=== PATIENT | female | born 1945 | race Caucasian/White ===

== ENCOUNTER 2019-11-24 12:35 | Inpatient (IN) | payer MEDICARE ==
[~2019-11-24] VITALS: Ht 162.5 cm; Wt 54.5 kg
--- NOTE | 2019-11-24 12:50 | NUR ---
CALLED AND GAVE UPDATE TO SON JADEN.
--- NOTE | 2019-11-24 12:54 | NUR ---
UP TO BSC UNABLE TO BEAR WT ON R LEG DUE TO PAIN WHEN MOVING
--- NOTE | 2019-11-24 13:32 | Diagnostic Imaging Report ---
INDICATION: Fall. TIME OF EXAM: 1:32 PM. COMPARISON: 09/02/2011. FINDINGS: The heart size is stable. There are zones of linear density in both bases, consistent with some atelectasis or scarring. No infiltrates are detected. No effusion or pneumothorax is seen. IMPRESSION: Bibasilar subsegmental atelectasis or scarring. No other significant abnormality is detected. Dictated by: Dictated on workstation # [id number]
--- NOTE | 2019-11-24 13:32 | Diagnostic Imaging Report ---
PROCEDURE: CT head and CT cervical spine without contrast. TECHNIQUE: Multiple contiguous axial images were obtained through the brain and cervical spine without the use of intravenous contrast. Sagittal and coronal reformations through the cervical spine were then performed. Auto Exposure Controls were utilized during the CT exam to meet ALARA standards for radiation dose reduction. INDICATION: Multiple falls, confusion and headaches. Comparison is made with prior head CT from 09/03/2011. CT HEAD: Ventricular size is normal for the patient's age. 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 Periventricular hypodensities noted consistent with chronic microvascular ischemia. No sulcal effacement or midline shift is detected. No acute intra-axial or extra-axial hemorrhage is detected. Cisterns are patent. Visualized paranasal sinuses are clear. IMPRESSION: Chronic changes. No acute intracranial process is detected. CT CERVICAL SPINE: There is a reversal of the normal cervical lordotic curvature. Minimal anterolisthesis of C4 on C5 is noted with minimal retrolisthesis of C5 on C6 and C6 on C7. There is significant degenerative disc disease C4-C5, C5-C6 and C6-C7 levels with disc space narrowing and marginal osteophyte formation. Prevertebral tissues are within normal limits. No fractures are identified. The odontoid is intact. IMPRESSION: Reversal of the normal cervical curvature and multilevel spondylosis. No acute bony abnormality is detected. Dictated by: Dictated on workstation # [id number]
--- NOTE | 2019-11-24 13:35 | Diagnostic Imaging Report ---
INDICATION: Fall. TIME OF EXAM: 1:32 PM. TECHNIQUE: An AP view of the pelvis and two views of the right hip were obtained. FINDINGS: The femoroacetabular alignment is normal bilaterally. There is superior joint space narrowing bilaterally, consistent with degenerative change. The femoral heads and necks are intact. There is some questionable cortical interruption involving the inferior pubic ramus on the right. A nondisplaced fracture cannot be entirely excluded. There are extensive vascular calcifications within the iliac arteries bilaterally. IMPRESSION: Chronic changes. There is a questionable nondisplaced fracture of the right inferior pubic ramus. No hip fracture is detected. Dictated by: Dictated on workstation # [id number]
--- NOTE | 2019-11-24 13:43 | ED Fall/Injury ---
General Chief Complaint: Trauma-Non Activation Stated Complaint: R HIP PAIN;FALL Nursing Triage Note: TO ED PER EMS FROM HOME SON WENT TO CHECK ON HER FOUND HER ON THE FLOOR AROUNG 11A . UNABLE TO GET UP C/O R HIP PAIN WHEN TRYING TO GET UP. PMH OF STROKE THAT DID AFFECT R LEG. Source: patient Exam Limitations: no limitations History of Present Illness Date Seen by Provider: Nov 24, 2019 Time Seen by Provider: 13:42 Initial Comments To ER by EMS from home with reports of a fall and subsequent right hip pain. She was reportedly unable to get up or ambulate at home. She lives at home by herself. Son would by her house to check on her at about 11 AM as he does every day and found her on the floor.SHe takes tramadol at home for pain control. She follows with Dr. Vincent. Occurred: just prior to arrival Severity: mild Context: unknown Loss of Consciousness: unsure Allergies and Home Medications Allergies Coded Allergies: Penicillins (Verified Allergy, Unknown, 11/24/19) PATIENT STATES NKDA SON THINKS SHE MAY BE ALLERGIC TO PENICILLINS. Patient Home Medication List Home Medication List Reviewed: Yes Review of Systems Review of Systems Constitutional: see HPI Eyes: No Symptoms Reported Ears, Nose, Mouth, Throat: no symptoms reported Respiratory: no symptoms reported Cardiovascular: no symptoms reported Genitourinary: no symptoms reported Musculoskeletal: no symptoms reported Skin: no symptoms reported Psychiatric/Neurological: No Symptoms Reported Past [id number]-[id number]-Vyvutd Hx Patient Social History Alcohol Use: Denies Use Recreational Drug Use: No Smoking Status: Never a Smoker Recent Foreign Travel: No Contact w/Someone Who Travel: No Recent Infectious Disease Expo: No Past Medical History Surgeries: No Respiratory: No Cardiac: Yes High Cholesterol Neurological: No Stroke Genitourinary: No Gastrointestinal: No Musculoskeletal: Yes (CHRONIC PAIN) Endocrine: No HEENT: No Cancer: No Psychosocial: No Integumentary: No Physical Exam Vital Signs Vital Signs - First Documented 11/24/19 12:35 Temp 36.8 Pulse 97 Resp 18 B/P (MAP) 145/89 (107) Pulse Ox 98 O2 Delivery Room Air Capillary Refill : Less Than 3 Seconds Height, Weight, BMI Height: '" Weight: lbs. oz. kg; 20.00 BMI Method: General Appearance: WD/WN, no apparent distress Neck: non-tender, full range of motion Respiratory: no respiratory distress, no accessory muscle use Gastrointestinal: normal bowel sounds, soft Extremities: normal range of motion, non-tender Neurologic/Psychiatric: alert, normal mood/affect, oriented x 3 Skin: normal color, warm/dry Renetta Coma Score Best Eye Response: (4) Open Spontaneously Best Verbal Response: (5) Oriented Best Motor Response: (6) Obeys Commands Renetta Total: 15 Progress/Results/Core Measures Results/Orders Lab Results Laboratory Tests Test 11/24/19 13:52 11/24/19 14:06 Range/Units White Blood Count 15.8 H 4.3-11.0 10^3/uL Red Blood Count 4.87 4.35-5.85 10^6/uL Hemoglobin 14.4 11.5-16.0 G/DL Hematocrit 42 35-52 % Mean Corpuscular Volume 86 80-99 FL Mean Corpuscular Hemoglobin 30 25-34 PG Mean Corpuscular Hemoglobin Concent 34 32-36 G/DL Red Cell Distribution Width 13.9 10.0-14.5 % Platelet Count 278 130-400 10^3/uL Mean Platelet Volume 9.5 7.4-10.4 FL Neutrophils (%) (Auto) 85 H 42-75 % Lymphocytes (%) (Auto) 9 L 12-44 % Monocytes (%) (Auto) 7 0-12 % Eosinophils (%) (Auto) 0 0-10 % Basophils (%) (Auto) 0 0-10 % Neutrophils # (Auto) 13.3 H 1.8-7.8 X 10^3 Lymphocytes # (Auto) 1.4 1.0-4.0 X 10^3 Monocytes # (Auto) 1.1 H 0.0-1.0 X 10^3 Eosinophils # (Auto) 0.0 0.0-0.3 10^3/uL Basophils # (Auto) 0.0 0.0-0.1 10^3/uL Neutrophils % (Manual) 79 % Lymphocytes % (Manual) 12 % Monocytes % (Manual) 4 % Eosinophils % (Manual) 0 % Basophils % (Manual) 0 % Band Neutrophils 5 % Blood Morphology Comment NORMAL Sodium Level 134 L 135-145 MMOL/L Potassium Level 4.6 3.6-5.0 MMOL/L Chloride Level 102 98-107 MMOL/L Carbon Dioxide Level 20 L 21-32 MMOL/L Anion Gap 12 5-14 MMOL/L Blood Urea Nitrogen 9 7-18 MG/DL Creatinine 0.70 0.60-1.30 MG/DL Estimat Glomerular Filtration Rate > 60 BUN/Creatinine Ratio 13 Glucose Level 108 H 70-105 MG/DL Calcium Level 8.8 8.5-10.1 MG/DL Urine Color YELLOW Urine Clarity CLEAR Urine pH 7.0 5-9 Urine Specific [place] 1.015 L 1.016-1.022 Urine Protein NEGATIVE NEGATIVE Urine Glucose (UA) NEGATIVE NEGATIVE Urine Ketones NEGATIVE NEGATIVE Urine Nitrite NEGATIVE NEGATIVE Urine Bilirubin NEGATIVE NEGATIVE Urine Urobilinogen 0.2 < = 1.0 MG/DL Urine Leukocyte Esterase NEGATIVE NEGATIVE Urine RBC (Auto) TRACE-L NEGATIVE Urine RBC 2-5 H /HPF Urine WBC NONE /HPF Urine Squamous Epithelial Cells 0-2 /HPF Urine Crystals NONE /LPF Urine Bacteria TRACE /HPF Urine Casts NONE /LPF Urine Mucus NEGATIVE /LPF Urine Culture Indicated NO My Orders Orders - MAMI MYRICK APRN Ct Head/Cervical Spine Wo (11/24/19 12:37) Chest 1 View, Ap/Pa Only (11/24/19 12:37) Pelvis With Right Hip 2-3views (11/24/19 12:37) Cbc With Automated Diff (11/24/19 13:23) Basic Metabolic Panel (11/24/19 13:23) Ua Culture If Indicated (11/24/19 13:23) Ct Pelvis Wo (11/24/19 13:41) Manual Differential (11/24/19 13:52) Vital Signs/I&O 11/24/19 12:35 Temp 36.8 Pulse 97 Resp 18 B/P (MAP) 145/89 (107) Pulse Ox 98 O2 Delivery Room Air Blood Pressure Mean: 107 Diagnostic Imaging Diagonstic Imaging: CT Comments NAME: LATOYA KRUSE [facility] REC#: [id number] PT STATUS: REG ER : 1945 PHYSICIAN: MAMI MYRICK APRN ADMIT DATE: 11/24/19/ER Draft Date of Exam:11/24/19 CT PELVIS WO PROCEDURE: CT pelvis without contrast. TECHNIQUE: Multiple contiguous axial images were obtained through the pelvis without the use of intravenous contrast. Sagittal and coronal reformations were performed. Auto Exposure Controls were utilized during the CT exam to meet ALARA standards for radiation dose reduction. INDICATION: Questionable pubic ramus fracture. Study is performed for further evaluation. COMPARISON: Correlation is made with plain films of the pelvis performed earlier today. FINDINGS: There is an acute-appearing fracture of the right inferior pubic ramus, correlating with the plain film abnormality. This appears nondisplaced. The left inferior pubic ramus as well as bilateral superior pubic rami are intact. Femoral acetabular alignment is normal bilaterally. No hip fracture is identified. Sacral ala are intact bilaterally. IMPRESSION: Nondisplaced right inferior pubic ramus fracture. No hip fracture is identified. Dictated on workstation # [id number] Dict: 11/24/19 1457 Trans: 11/24/19 1501 [facility] [id number] Interpreted by: DESIRAE ROSS MD Electronically signed by: Departure Communication (Admissions) Tried to assist the patient out of bed and walk using a walker. She was unable to stand up once she got to the edge of the bed because of the pain in the right buttock. As such, because she lives at home by herself, she'll need to be admitted for physical therapy consult and pain control. Impression Primary Impression: Inferior pubic ramus fracture Qualified Codes: S32.591A - Other specified fracture of right pubis, initial encounter for closed fracture Disposition: ADMITTED INPATIENT Condition: Stable Admissions Decision to Admit Reason: Admit from ER (General) Decision to Admit/Date: Nov 24, 2019 Time/Decision to Admit Time: 15:15 MAMI MYRICK APRN Nov 24, 2019 13:43
[2019-11-24 13:59] LABS: BASOPHILS % (AUTO) 0 % (0-10); EOSINOPHILS % (AUTO) 0 % (0-10); HEMATOCRIT 42 % (35-52); HEMOGLOBIN 14.4 G/DL (11.5-16.0); LYMPHOCYTES # (AUTO) 1.4 X 10^3 (1.0-4.0); LYMPHOCYTES % (AUTO) 9 % (12-44); MEAN CORPUSCULAR HEMOGLOBIN 30 PG (25-34); MEAN CORPUSCULAR HGB CONC 34 G/DL (32-36); MEAN CORPUSCULAR VOLUME 86 FL (80-99); MEAN PLATELET VOLUME 9.5 FL (7.4-10.4); MONOCYTES # (AUTO) 1.1 X 10^3 (0.0-1.0); MONOCYTES % (AUTO) 7 % (0-12); NEUTROPHILS # (AUTO) 13.3 X 10^3 (1.8-7.8); NEUTROPHILS % (AUTO) 85 % (42-75); PLATELET COUNT 278 10^3/uL (130-400); RED CELL DISTRIBUTION WIDTH 13.9 % (10.0-14.5); WHITE BLOOD COUNT 15.8 10^3/uL (4.3-11.0)
--- OUTSIDE RECORDS SUMMARY | 2019-11-24 14:00 | XMS REPORT | CCD ---
Author Author LATOYA PEREZ Organization Unknown Address [address] [place] [phone] Care Team Providers Care Rod Welder Name Role Phone GRIMALDO, ADDISON DO Attphys GRIMALDO, ADDISON DO Prisurg Vital Signs Unknown or Not Available. Allergies Allergy Code Allergy Type Reaction Status PENICILLIN 90227 Drug allergy Activ e Procedures Procedure Code Procedure Type Date CULTURE WOUND 410732284 SNOMED CT 10/09/2015 History of Immunizations Unknown or Not Available. Problems Problem Code Start Date Resolved Date Sta tus WEAKNESS OF BOTH ARMS 779063182 08/31/2011 Active COPD (CHRONIC OBSTRUCTIVE PULMONARY DISEASE) 496 Active HYPERCHOLESTEREMIA 74663581 A ctive Results Unknown or Not Available. Active Medications Unknown or Not Available. Medications Administered During Visit Unknown or Not Available. Encounters Encounter Diagnosis Diagnosis Code Start Date Cellulitis of right toe [id number] 10/09/2015 Social History Smoking Status Code Start Date End Date Current every day smoker 440437295 Patient Decision Aids Unknown or Not Available. Discharge Instructions You were admitted to [facility] on 10/09/2015 17:40 with a principal diagnosis of Cellulitis of right toe You were discharged from [facility] on 10/09/2015 18:19 Should you have any questions prior to discharge, please contact a member of your healthcare team. If you have left the hospital and have any questions, please contact your primary care physician. Chief Complaint and Reason For Visit Chief Complaint Date of Onset TOE SWELLING Function Status Unknown or Not Available. Plan of Care Unknown or Not Available. Referral/Transition of Care Unknown or Not Available.
--- OUTSIDE RECORDS SUMMARY | 2019-11-24 14:01 | XMS REPORT ---
Author Author Dasia Buckner Organization [facility] Address [address] [place] [id number] Care Team Providers Care Economist Research Assistant Name Role Phone Yoni Buckner PCP Yoni Buckner PreferredProvider Allergies and Adverse Reactions Name Reaction Notes PENICILLINS Plan of Treatment Planned Activity Comments Planned Date Planned Time Plan/Goal CBC with Auto 08/03/2018 12:00 AM CMP (comprehensive metabolic panel) 08/03/2018 12:00 AM Flu vaccine 3 yrs & older V4 P-free Medicare 4 12:00 AM nonhealing ulceration Medications Active Name Start Date Estimated Completion Date SIG Co mments Lyrica 200 mg oral capsule 03/02/2018 TAKE 1 CAPSULE BY MOUTH THREE TIMES DAILY FOR 30 DAYS tramadol 50 mg oral tablet 05/07/2018 take 1 tablet by oral route every 4 hours as needed mirtazapine 30 mg oral tablet 06/01/2018 TA KE ONE TABLET BY MOUTH EVERY DAY BEFORE BEDTIME pravastatin 40 mg oral tablet 06/01/2018 TAKE ONE TA BLET BY MOUTH ONCE DAILY Name Start Date Expiration Date SIG Comments Cipro 500 mg oral tablet 07/23/2010 07/30/2010 take 1 tablet (500 mg) by oral route every 12 hours for 7 days prednisone 50 mg oral tablet 07/23/2010 08/02/2010 One tablet every day for 10 days. aspirin 325 mg oral tablet,delayed release (DR/EC) 11/07/2011 11/06/2012 take 1 tablet (325 mg) by oral route daily mirtazapine 30 mg oral tablet 07/16/2012 02/11/2013 ta ke 1 tablet (30 mg) by oral route once daily before bedtime for 30 days mirtazapine 30 mg oral tablet 06/16/2013 10/14/2013 TA KE ONE TABLET BY MOUTH EVERY DAY BEFORE BEDTIME doxycycline hyclate 100 mg oral capsule 10/20/2015 6 take 1 capsule by oral route 2 times a day for 10 days Discontinued Name Start Date Discontinued Date SIG Comments pravastatin 40 mg oral tablet 08/15/2011 09/24/2011 ta ke 1 tablet by oral route QD for 30 days fexofenadine 60 mg oral tablet 08/22/2011 09/24/2011 t katie 1 tablet (60 mg) by oral route 2 times per day as needed prednisone 2.5 mg oral tablet 11/07/2011 03/30/2014 ta ke 1 tablet (2.5 mg) by oral route once daily simvastatin 20 mg oral tablet 11/07/2011 03/30/2014 ta ke 1 tablet (20 mg) by oral route once daily in the evening gabapentin 800 mg oral tablet 08/09/2013 03/30/2014 TA KE ONE TABLET BY MOUTH THREE TIMES DAILY Lyrica 200 mg oral capsule 05/29/2015 10/25/2015 take 1 capsule (200 mg) by oral route 3 times per day for 30 days Bactrim DS 800-160 mg oral tablet 02/27/2016 take 1 tablet by oral route every 12 hours for 7 days promethazine 25 mg oral tablet 10/30/2015 t katie 1 tablet (25 mg) by oral route every 6 hours as needed promethazine 25 mg oral tablet 11/26/2016 09/30/2017 T KATIE ONE TABLET BY MOUTH EVERY 6 HOURS NEEDED Zithromax Z-Salvador 250 mg oral tablet 06/24/2017 take 2 tablets (500 mg) by oral route once daily for 1 day then 1 tablet (250 mg) by oral route once daily for 4 days Bactrim DS 800-160 mg oral tablet 04/08/2017 06/24/2017 take 1 tablet by oral route every 12 hours for 14 days Ultram 50 mg oral tablet 09/30/2017 05/07/2018 take 1 tablet (50 mg) by oral route every 6 hours as needed Problem List Description Status Onset Vasculitis Active 10/09/2011 Hyperlipidemia Active /5 Cerebrovascular Accident (CVA) Active Vital Signs Date Time BP-Sys(mm[Hg] BP-Arlen(mm[Hg]) HR(bpm) RR(rpm) Temp WT HT HC BMI BSA BMI Percentile O2 Sat(%) 05/07/2018 1:06:00 PM 126 mmHg 78 mmHg 97 bpm 18 rpm 97.5 F 149.125 lbs 64 i n 25.597 kg/m 1.7477 m 93 % 01/29/2018 2:23:00 PM 120 mmHg 78 mmHg 95 bpm 18 rpm 97.2 F 146.25 lbs 64 i n 25.10 kg/m2 1.73 m2 94 % 09/30/2017 2:26:00 PM 128 mmHg 86 mmHg 89 bpm 18 rpm 97.7 F 144 lbs 64 in 24.7173 kg/m 1.7174 m 93 % 06/25/2017 10:49:00 AM 130 mmHg 82 mmHg 90 bpm 20 rpm 97.1 F 142 lbs 64 in 24.37 kg/m2 1.71 m2 95 % 06/24/2017 2:25:00 PM 118 mmHg 76 mmHg 98 bpm 16 rpm 96 F 143.125 lbs 64 i n 24.5671 kg/m 1.7122 m 94 % 06/11/2017 9:57:00 AM 140 mmHg 86 mmHg 102 bpm 20 rpm 97.5 F 142 lbs 64 in 24.37 kg/m2 1.71 m2 96 % 06/04/2017 11:14:00 AM 110 mmHg 80 mmHg 103 bpm 18 rpm 96.4 F 142 lbs 64 in 24.374 kg/m 1.7054 m 94 % 06/02/2017 2:54:00 PM 130 mmHg 85 mmHg 95 bpm 16 rpm 97.6 F 142 lbs 97 % 04/21/2017 9:00:00 AM 132 mmHg 84 mmHg 106 bpm 18 rpm 98.2 F 142 lbs 64 in 24.374 kg/m 1.7054 m 93 % 04/08/2017 9:47:00 AM 126 mmHg 74 mmHg 98 bpm 18 rpm 97 F 142.375 lbs 64 i n 24.44 kg/m2 1.71 m2 95 % 03/06/2017 1:19:00 PM 124 mmHg 66 mmHg 97 bpm 18 rpm 96.8 F 142.125 lbs 64 in 24.3955 kg/m 1.7062 m 95 % 10/10/2016 1:17:00 PM 134 mmHg 68 mmHg 94 bpm 18 rpm 97.8 F 144.25 lbs 64 in 24.76 kg/m2 1.72 m2 97 % 07/04/2016 1:36:00 PM 126 mmHg 64 mmHg 97 bpm 18 rpm 97.2 F 143 lbs 64 in 24.5456 kg/m 1.7114 m 96 % 02/27/2016 10:12:00 AM 134 mmHg 82 mmHg 84 bpm 16 rpm 96.7 F 144 lbs 64 in 24.72 kg/m2 1.72 m2 86 % 10/30/2015 10:02:00 AM 128 mmHg 80 mmHg 88 bpm 16 rpm 96.8 F 151 lbs 64 in 25.9188 kg/m 1.7586 m 94 % 10/10/2015 2:13:00 PM 130 mmHg 86 mmHg 88 bpm 96.9 F 152 lbs 64 in 26.09 kg/m2 1.76 m2 96 % 06/26/2015 9:13:00 AM 132 mmHg 74 mmHg 92 bpm 18 rpm 97.8 F 152 lbs 64 in 26.0905 kg/m 1.7645 m 95 % 03/24/2015 10:05:00 AM 118 mmHg 82 mmHg 88 bpm 18 rpm 96.6 F 148 lbs 64 in 25.40 kg/m2 1.74 m2 95 % 09/27/2014 9:58:00 AM 122 mmHg 80 mmHg 80 bpm 18 rpm 97.4 F 137 lbs 64 in 23.5158 kg/m 1.6751 m 03/30/2014 9:50:00 AM 122 mmHg 74 mmHg 88 bpm 18 rpm 97.8 F 126 lbs 64 in 21.63 kg/m2 1.61 m2 10/21/2013 9:21:00 AM 122 mmHg 70 mmHg 88 bpm 18 rpm 113 lbs 64 in 19.3962 kg/m 1.5213 m 09/30/2013 11:14:00 AM 108 mmHg 70 mmHg 82 bpm 16 rpm 96.6 F 114 lbs 66 in 18.40 kg/m2 1.55 m2 02/18/2013 9:32:00 AM 122 mmHg 70 mmHg 80 bpm 18 rpm 98.1 F 116 lbs 66 in 18.7227 kg/m 1.5653 m 11/18/2012 10:34:00 AM 114 mmHg 70 mmHg 100 bpm 18 rpm 98.5 F 117 lbs 64 in 20.08 kg/m2 1.55 m2 08/12/2012 9:58:00 AM 122 mmHg 72 mmHg 88 bpm 16 rpm 97.8 F 119 lbs 64 in 20.4261 kg/m 1.5612 m 07/16/2012 10:20:00 AM 132 mmHg 82 mmHg 88 bpm 16 rpm 97.4 F 117 lbs 64 in 20.08 kg/m2 1.55 m2 05/11/2012 9:38:00 AM 118 mmHg 80 mmHg 78 bpm 18 rpm 97.8 F 116 lbs 64 in 19.9112 kg/m 1.5414 m 02/07/2012 9:54:00 AM 125 mmHg 65 mmHg 117 bpm 18 rpm 96.6 F 117 lbs 64 in 20.08 kg/m2 1.55 m2 95 % 11/19/2011 10:10:00 AM 122 mmHg 70 mmHg 98 bpm 18 rpm 97.7 F 112 lbs 64 in 19.2246 kg/m 1.5146 m 11/07/2011 3:39:00 PM 112 mmHg 68 mmHg 94 bpm 18 rpm 97.8 F 113 lbs 64 in 19.40 kg/m2 1.52 m2 10/08/2011 3:06:00 PM 98 mmHg 70 mmHg 94 bpm 18 rpm 97.6 F 109 lbs 64 in 18.7096 kg/m 1.4942 m 09/24/2011 1:20:00 PM 116 mmHg 64 mmHg 82 bpm 18 rpm 97.6 F 106 lbs 64 in 18.19 kg/m2 1.47 m2 06/13/2011 2:23:00 PM 118 mmHg 64 mmHg 68 bpm 18 rpm 97.3 F 112.5 lbs 64 in 19.3104 kg/m 1.518 m 07/23/2010 2:33:00 PM 104 bpm 97.3 F 115 lbs 96 % Social History Name Description Comments Cigarette smoking Current - status unknown Tobacco Never smoker History of Procedures Date Ordered Description Order Status 03/24/2015 12:00 AM INFLUENZA VACCINE QUADRIVALENT 3 YRS PLU S IM Reviewed 03/24/2015 12:00 AM PNEUMOCOCCAL VACC 13 MARISA IM Reviewed 06/13/2011 12:00 AM COMPLETE CBC W/AUTO DIFF WBC Reviewed 06/13/2011 12:00 AM COMPREHEN METABOLIC PANEL Reviewed 06/13/2011 12:00 AM LIPID PANEL Reviewed 02/27/2016 12:00 AM INFLUENZA VACCINE QUADRIVALENT 3 YRS PLU S IM Reviewed 08/14/2011 12:00 AM METABOLIC PANEL TOTAL CA Reviewed 08/14/2011 12:00 AM LIPID PANEL Reviewed 11/14/2011 12:00 AM COMPLETE CBC W/AUTO DIFF WBC Reviewed 11/14/2011 12:00 AM METABOLIC PANEL TOTAL CA Reviewed 02/07/2012 12:00 AM COMPLETE CBC W/AUTO DIFF WBC Reviewed 02/07/2012 12:00 AM COMPREHEN METABOLIC PANEL Reviewed 02/07/2012 12:00 AM Pneumovax Injection - RHC Reviewed 02/07/2012 12:00 AM Flu Injection 3 Years And Above [facility]# 492 [id number] RHC Reviewed 03/06/2017 12:00 AM INFLUENZA VAC 4 VALENT PRSRV FREE 3 YRS PLUS IM Reviewed 01/29/2018 12:00 AM INFLUENZA VAC 4 VALENT PRSRV FREE 3 YRS PLUS IM Reviewed 02/16/2013 12:00 AM ROUTINE VENIPUNCTURE Reviewed 02/16/2013 12:00 AM COMPLETE CBC W/AUTO DIFF WBC Reviewed 02/16/2013 12:00 AM COMPREHEN METABOLIC PANEL Reviewed 02/16/2013 12:00 AM LIPID PANEL Reviewed 02/18/2013 12:00 AM Flu Injection 3 Years And Above [facility]# 492 [id number] C Reviewed 09/30/2013 12:00 AM COMPLETE CBC W/AUTO DIFF WBC Reviewed 09/30/2013 12:00 AM COMPREHEN METABOLIC PANEL Reviewed 09/30/2013 12:00 AM LIPID PANEL Reviewed 09/30/2013 12:00 AM ASSAY THYROID STIM HORMONE Reviewed 09/30/2013 12:00 AM VITAMIN B-12 Reviewed 09/27/2014 12:00 AM COMPLETE CBC W/AUTO DIFF WBC Reviewed 09/27/2014 12:00 AM COMPREHEN METABOLIC PANEL Reviewed 09/27/2014 12:00 AM ASSAY BLD/SERUM CHOLESTEROL Reviewed Results Summary Date and Description Results 06/14/2011 8:08 AM WBC 9.3 RBC 5.01 HGB 15.60 g /dLHCT 44.60 %MCV 89.0 fLMCH 31.10 pgMCHC 35.0 g/dLRDW SD 45 RDW CV 13.90 %MPV 9.70 fLPLT 312 NRBC# 0.00 NRBC% 0.0 %NEUT 57.10 %%LYMP 31.80 %%MONO 7.30 %%EOS 3.0 %%BASO 0.80 %#NEUT 5.33 #LYMP 2.97 #MONO 0.68 #EOS 0.28 #BASO 0.07 MANUAL DIFF NOT IND GLUCOSE 89.0 mg/dLSODIUM 131.0 mmol/LPOTASSIUM 5.10 mmol/LCHLORIDE 98.0 mmol/LCO2 25.0 mmol/LBUN 9.0 mg/dLCREATININE 0.70 mg/dLSGOT/AST 14.0 IU/LSGPT/ALT 10.0 IU/LALK PHOS 98.0 IU/LTOTAL PROTEIN 7.60 g/dLALBUMIN 4.40 g/dLTOTAL BILI 0.60 mg/dLCALCIUM 9.60 mg/dLAGE 65 GFR NonAA 83 GFR AA 101 eGFR >60 mL/min/1.73 m2eGFR AA* >60 TRIGLYCERIDES 114.0 mg/dLCHOLESTEROL 326.0 mg/dLHDL 47.0 mg/dLTOT CHOL/HDL 6.9 LDL (CALC) 256.0 mg/dL 08/15/2011 8:22 AM GLUCOSE 82.0 mg/dLSODIUM 135 .0 mmol/LPOTASSIUM 4.50 mmol/LCHLORIDE 99.0 mmol/LCO2 26.0 mmol/LBUN 6.0 mg/dLCREATININE 0.70 mg/dLCALCIUM 9.70 mg/dLAGE 65 GFR NonAA 83 GFR AA 101 eGFR 60 eGFR AA* 60 TRI GLYCERIDES 78.0 mg/dLCHOLESTEROL 223.0 mg/dLHDL 52.0 mg/dLTOT CHOL/HDL 4.3 LDL (CALC) 155.0 mg/dL 11/14/2011 9:20 AM GLUCOSE 134.0 mg/dLSODIUM 13 1.0 mmol/LPOTASSIUM 4.0 mmol/LCHLORIDE 97.0 mmol/LCO2 22.0 mmol/LBUN 7.0 mg/dLCREATININE 0.70 mg/dLCALCIUM 8.80 mg/dLAGE 65 GFR NonAA 83 GFR AA 101 eGFR 60 eGFR AA* 60 WBC 10.9 RBC 4.38 HGB 13.20 g/dLHCT 39.10 %MCV 89.0 fLMCH 30.10 pgMCHC 33.80 g/dLRDW SD 47 RDW CV 14.40 %MPV 9.90 fLPLT 198 NRBC# 0.00 NRBC% 0.0 %NEUT 70.80 %%LYMP 16.70 %%MONO 12.0 %%EOS 0.0 %%BASO 0.50 %#NEUT 7.73 #LYMP 1.82 #MONO 1.31 #EOS 0.00 #BASO 0.05 MANUAL DIFF NOT IND 02/07/2012 10:28 AM WBC 13.6 RBC 4.98 HGB 15.10 g/dLHCT 43.80 %MCV 88.0 fLMCH 30.30 pgMCHC 34.50 g/dLRDW SD 45 RDW CV 14.20 %MPV 9.90 fLPLT 340 NRBC# 0.00 NRBC% 0.0 %NEUT 77.80 %%LYMP 13.90 %%MONO 7.20 %%EOS 0.70 %%BASO 0.40 %#NEUT 10.62 #LYMP 1.89 #MONO 0.98 #EOS 0.10 #BASO 0.05 MANUAL DIFF NOT IND GLUCOSE 84.0 mg/dLSODIUM 137.0 mmol/LPOTASSIUM 4.80 mmol/LCHLORIDE 100.0 mmol/LCO2 25.0 mmol/LBUN 10.0 mg/dLCREATININE 0.70 mg/dLSGOT/AST 15.0 IU/LSGPT/ALT 12.0 IU/LALK PHOS 92.0 IU/LTOTAL PROTEIN 7.60 g/dLALBUMIN 4.50 g/dLTOTAL BILI 0.40 mg/dLCALCIUM 10.40 mg/dLAGE 66 GFR NonAA 83 GFR AA 101 eGFR 60 eGFR AA* 60 02/17/2013 8:05 AM GLUCOSE 85.0 mg/dLSODIUM 132 .0 mmol/LPOTASSIUM 4.30 mmol/LCHLORIDE 99.0 mmol/LCO2 24.0 mmol/LBUN 6.0 mg/dLCREATININE 0.70 mg/dLSGOT/AST 20.0 IU/LSGPT/ALT 16.0 IU/LALK PHOS 97.0 IU/LTOTAL PROTEIN 7.50 g/dLALBUMIN 4.40 g/dLTOTAL BILI 0.60 mg/dLCALCIUM 9.50 mg/dLAGE 67 GFR NonAA 83 GFR AA 101 eGFR >60 mL/min/1.73 m2eGFR AA* >60 TRIGLYCERIDES 113.0 mg/dLCHOLESTEROL 225.0 mg/dLHDL 50.0 mg/dLTOT CHOL/HDL 4.5 LDL (CALC) 152.0 mg/dLWBC 8.1 RBC 4.98 HGB 15.40 g/dLHCT 43.90 %MCV 88.0 fLMCH 30.90 pgMCHC 35.10 g/dLRDW SD 44 RDW CV 13.80 %MPV 9.70 fLPLT 303 NRBC# 0.00 NRBC% 0.0 %NEUT 55.40 %%LYMP 32.90 %%MONO 8.10 %%EOS 2.70 %%BASO 0.90 %#NEUT 4.47 #LYMP 2.65 #MONO 0.65 #EOS 0.22 #BASO 0.07 MANUAL DIFF NOT IND 10/01/2013 8:12 AM TSH 1.410 uIU/mLWBC 8.5 RBC 5.10 HGB 15.90 g/dLHCT 45.30 %MCV 89.0 fLMCH 31.20 pgMCHC 35.10 g/dLRDW SD 45 RDW CV 13.80 %MPV 9.80 fLPLT 324 NRBC# 0.00 NRBC% 0.0 %NEUT 53.30 %%LYMP 34.50 %%MONO 7.80 %%EOS 3.90 %%BASO 0.50 %#NEUT 4.53 #LYMP 2.93 #MONO 0.66 #EOS 0.33 #BASO 0.04 MANUAL DIFF NOT IND GLUCOSE 94.0 mg/dLSODIUM 134.0 mmol/LPOTASSIUM 4.10 mmol/LCHLORIDE 101.0 mmol/LCO2 27.0 mmol/LBUN 8.0 mg/dLCREATININE 0.80 mg/dLSGOT/AST 15.0 IU/LSG PT/ALT 17.0 IU/LALK PHOS 83.0 IU/LTOTAL PROTEIN 7.60 g/dLALBUMIN 4.30 g/dLTOTAL BILI 1.0 mg/dLCALCIUM 9.60 mg/dLAGE 67 GFR NonAA 71 GFR AA 86 eGFR 60 eGFR AA* 60 VITAMIN B12 384.0 pg/mLTRIGLYCERIDES 105.0 mg/dLCHOLESTEROL 219.0 mg/dLHDL 51.0 mg/dLTOT CHOL/HDL 4.3 LDL (CALC) 147.0 mg/dL 09/27/2014 10:55 AM WBC 9.6 RBC 5.31 HGB 16.40 g /dLHCT 46.70 %MCV 88.0 fLMCH 30.90 pgMCHC 35.10 g/dLRDW SD 45 RDW CV 13.90 %MPV 9.70 fLPLT 270 NRBC# 0.00 NRBC% 0.0 %NEUT 65.50 %%LYMP 25.30 %%MONO 7.30 %%EOS 1.50 %%BASO 0.40 %#NEUT 6.28 #LYMP 2.43 #MONO 0.70 #EOS 0.14 #BASO 0.04 MANUAL DIFF NOT IND GLUCOSE 70.0 mg/dLSODIUM 133.0 mmol/LPOTASSIUM 5.10 mmol/LCHLORIDE 98.0 mmol/LCO2 24.0 mmol/LBUN 9.0 mg/dLCREATININE 0.80 mg/dLSGOT/AST 18.0 IU/LSGPT/ALT 10.0 IU/LALK PHOS 99.0 IU/LTOTAL PROTEIN 7.90 g/dLALBUMIN 4.60 g/dLTOTAL BILI 0.40 mg/dLCALCIUM 9.90 mg/dLAGE 68 GFR NonAA 71 GFR AA 86 eGFR >60 mL/min/1.73 m2eGFR AA* >60 CHOLESTEROL 260.0 mg/dL 04/17/2018 11:28 AM Falls in last 6 months? No U nsteady or worry about falling? No Fall Risk Assessment Not At Risk History Of Immunizations Name Date Admin Mfg Name Mfg Code Trade Name Lot# Route Inj Vis Given Vis Pub CVX Influenza 02/07/2012 sanofi pasteur PMC FLUZONE [id number] Intramuscular Left Arm 02/07/2012 11/04/2011 141 X 02/07/2012 [employer] MSD PNEUMOVAX 23 [id number] Intramu scular Right Arm 02/07/2012 02/07/2009 33 Influenza 02/18/2013 sanofi pasteur PMC FLUZONE [id number] Intramuscula r Left Deltoid 02/18/2013 11/27/2012 141 Pneumococcal 03/24/2015 Quxnc-Wdwusa-Njsdvsc-Praxis WAL PREVNAR 13 [id number] Intramuscular Right Deltoid 03/24/2015 07/01/2012 133 X 03/24/2015 Jvnuv-Hrkfti-Cgdzmyg-Praxis WAL PREVNAR 13 [id number] Intramuscular Right Deltoid 03/24/2015 07/01/2012 133 Influenza 03/24/2015 sanofi pasteur PMC Fluzone Quadrivalent [id number] Intramuscular Left Deltoid 03/24/2015 12/09/2014 141 Influenza 02/27/2016 sanofi pasteur PMC FLUZONE [id number] Intramuscula r Left Deltoid 02/27/2016 12/09/2014 141 Influenza 03/06/2017 Gl[employer]oSmith[employer] SK Flulaval quadrivalent [id number] [id number] Intramuscular Left Deltoid 03/06/2017 12/09/2014 158 Influenza 01/29/2018 [facility] Flulaval quadrivalent [id number] Intramuscular Left Deltoid 01/29/2018 05/05/2018 158 History of Past Illness Name Date of Onset Comments Vasculitis 10/09/2011 Cerebrovascular Accident (CVA) Hyperlipidemia /5 Bronchitis Jul 23 2010 2:36PM Family history of Hypertension Jun 13 2011 2:25PM Screening For Hypertension Jun 13 2011 2:25PM Right Hemorrhage, Subconjunctival Jun 13 2011 2:25PM Hyperlipidemia, Unspecified Aug 14 2011 1:04PM History of CVA or TIA Sep 24 2011 1:27PM Vasculitis Sep 24 2011 1:27PM History of CVA or TIA Oct 08 2011 3:12PM Vasculitis Oct 08 2011 3:12PM History of CVA or TIA Nov 07 2011 3:34PM Altered mental status Nov 14 2011 8:08AM Apraxia, Late Effect Of Cerebrovascular Disease Nov 19 2011 10:19AM Cerebrovascular Disease, Late Effect Of Nov 19 2011 10:19AM Hyponatremia Nov 19 2011 10:19AM Gait Abnormality Nov 19 2011 10:19AM Vasculitis Nov 19 2011 10:19AM History of CVA or TIA Feb 07 2012 9:56AM Elevated liver enzymes Feb 07 2012 9:56AM Flu and Pneumonia vaccines Feb 07 2012 2:34PM Hyperlipidemia, unspecified May 11 2012 9:42AM History of CVA or TIA May 11 2012 9:42AM Cerebrovascular Disease, Late Effect Of Jul 16 2012 10:25AM Paresthesia, left leg Jul 16 2012 10:25AM Cerebrovascular Disease, Late Effect Of Aug 12 2012 10:03AM Paresthesia, right leg Aug 12 2012 10:03AM Hyperlipidemia, unspecified Nov 18 2012 10:38AM Late effects of cerebrovascular disease Nov 18 2012 10:38AM Stroke Feb 16 2013 12:54PM Hyperlipidemia Feb 16 2013 12:54PM Hyperlipidemia Feb 18 2013 9:35AM Cerebrovascular Accident (CVA) Feb 18 2013 9:35AM Hyperlipidemia, unspecified Sep 30 2013 11:21AM Fatigue Sep 30 2013 11:21AM Cerebrovascular Accident (CVA) Oct 21 2013 9:26AM Neuropathy, right leg Oct 21 2013 9:26AM Flu Mar 03 2014 5:53PM Neuropathy Mar 30 2014 9:54AM Hyperlipidemia Sep 27 2014 10:02AM Cerebrovascular Accident (CVA) Sep 27 2014 10:02AM Low Back Pain Mar 24 2015 10:12AM Low Back Pain Jun 26 2015 9:18AM Paronychia, right Oct 10 2015 2:19PM Neuropathy Oct 30 2015 10:07AM Neuropathy Feb 27 2016 10:17AM Neuropathy Jul 04 2016 1:38PM Neuropathy Oct 10 2016 1:18PM Neuropathy Mar 06 2017 1:22PM Cellulitis Apr 08 2017 9:49AM Toxic effect of unspecified spider venom , accidental (unintentional), initial encounter Apr 08 2017 9:49AM Neuropathy Apr 08 2017 9:49AM Skin abscess Apr 21 2017 9:03AM Postoperative Follow-up Apr 29 2017 9:50AM 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 10:06AM Postoperative Follow-up Jun 03 2017 7:59AM Suture reaction, initial encounter Jun 03 2017 7:59AM Postoperative Follow-up Jun 04 2017 11:15AM Angiokeratoma of upper extremity, left Jun 11 2017 10:50AM Neuropathy Jun 24 2017 2:30PM Postoperative Follow-up Jun 25 2017 10:49AM Keratoacanthoma Jun 25 2017 10:49AM Neuropathy Sep 30 2017 2:27PM Neuropathy Jan 29 2018 2:27PM Neuropathy May 07 2018 1:06PM Chronic pain May 07 2018 1:06PM Hyperlipidemia Aug 03 2018 2:49PM Payers Insurance Name Company Name Plan Name Plan Number Policy Number [place] Group Number Start Date Medicare RHC Medicare RHC [id number] N/ A [id number] Mo 2008 Medicare Part A Medicare Part A [id number] N/A Medicare Part A Medicare - Lab/Xray [id number] N/A Medicare RHC Medicare RHC [id number] N/A Medicare Part B Medicare Of [place] [id number] Wednesday, December 03, 2008 History of Encounters Visit Date Visit Type Provider 05/07/2018 Office visit Yoni Buckner MD 01/29/2018 Office visit Yoni Buckner MD 09/30/2017 Office visit Yoni Buckner MD 06/25/2017 Office visit Brayan Almazan MD 06/24/2017 Office visit Yoni Buckner MD 06/11/2017 Procedures Brayan Almazan MD 06/04/2017 Office visit Brayan Almazan MD 06/02/2017 Office visit Brayan Almazan MD 04/29/2017 Office visit Brayan Almazan MD 04/21/2017 Procedures Brayan Almazan MD 04/21/2017 Office visit Yoni Buckner MD 04/08/2017 Office visit oYni Buckner MD 03/06/2017 Office visit oYni Buckner MD 10/10/2016 Office visit Yoni Buckner MD 07/04/2016 Office visit Yoni Buckner MD 02/27/2016 Office visit Yoni Buckner MD 10/30/2015 Office visit Yoni Buckner MD 10/10/2015 Office visit Yoni Buckner MD 06/26/2015 Office visit Yoni Buckner MD 03/24/2015 Office visit Yoni Buckner MD 09/27/2014 Office visit Yoni Buckner MD 03/30/2014 Office visit Yoni Buckner MD 02/24/2014 Nurse visit Yoni Buckner MD 10/21/2013 Office visit Yoni Buckner MD 09/30/2013 Office visit Yoni Buckner MD 02/18/2013 Office visit Yoni Buckner MD 11/18/2012 Office visit Yoni Buckner MD 08/12/2012 Office visit Clarita Maddox PRN 07/16/2012 Office visit Ewelina Peres MD 05/11/2012 Office visit Yoni Buckner MD 04/14/2012 Voided Clarita Maddox PRN 02/07/2012 Office visit Yoni Buckner MD 11/19/2011 Office visit Ewelina Peres MD 11/07/2011 Office visit Yoni Buckner MD 10/08/2011 Office visit Yoni Buckner MD 09/24/2011 Office visit Yoni Buckner MD 09/24/2011 [facility] Ewelina Peres MD 09/19/2011 [facility] Ewelina Peres MD 09/17/2011 [facility] Ewelina Peres MD 09/16/2011 [facility] Ewelina Peres MD 09/12/2011 [facility] Ewelina Peres MD 09/10/2011 [facility] Ewelina Peres MD 09/01/2011 [facility] Justine Linares MD 08/31/2011 [facility] Lamar Rendon MD 08/31/2011 [facility] Justine Linares MD 08/29/2011 [facility] Dominique Wright MD 08/28/2011 [facility] Dominique Wright MD 08/28/2011 [facility] Lamar Rendon MD 06/13/2011 Office visit Yeimi Christian APRN 07/23/2010 Office visit Federico Rodríguez MD 01/12/2009 Office visit Yoni Buckner MD
--- OUTSIDE RECORDS SUMMARY | 2019-11-24 14:01 | XMS REPORT ---
Author Author Dasia Buckner [facility] Physicians oup Address [address] [place] [id number] Care Team Providers Care Conversion Worker Name Role Phone Yoni Buckner PCP Yoni Buckner PreferredProvider Allergies and Adverse Reactions Name Reaction Notes PENICILLINS Plan of Treatment Planned Activity Comments Planned Date Planned Time Plan/Goal Flu vaccine 3 yrs & older V4 P-free Medicare 4 12:00 AM nonhealing ulceration Medications Active Name Start Date Estimated Completion Date SIG Co mments mirtazapine 30 mg oral tablet 06/01/2018 TA KE ONE TABLET BY MOUTH EVERY DAY BEFORE BEDTIME pravastatin 40 mg oral tablet 06/01/2018 TAKE ONE TA BLET BY MOUTH ONCE DAILY tramadol 50 mg oral tablet 10/19/2018 TAKE 1 TABLET BY MOUTH EVERY 4 HOURS NEEDED Lyrica 200 mg oral capsule 10/19/2018 TAKE 1 CAPSULE BY MOUTH THREE TIMES DAILY FOR 30 DAYS Name Start Date Expiration Date SIG Comments [...] HC BMI BSA BMI Percentile O2 Sat(%) 11/03/2018 3:06:00 PM 112 mmHg 76 mmHg 93 bpm 16 rpm 98.1 F 64 in 95 % 05/07/2018 1:06:00 PM 126 mmHg 78 mmHg [...] Cigarette smoking Current - status unknown Tobacco Current every day smoker History of Procedures Date Ordered Description [...] AM Flu Injection 3 Years And Above [facility]# [phone] 81-0384-15 [facility] Reviewed 03/06/2017 12:00 AM INFLUENZA VAC 4 VALENT PRSRV FREE 3 YRS PLUS IM Reviewed 01/29/2018 12:00 AM INFLUENZA VAC 4 VALENT PRSRV FREE 3 YRS PLUS IM Reviewed 02/16/2013 12:00 AM ROUTINE VENIPUNCTURE Reviewed 02/16/2013 12:00 AM COMPLETE CBC W/AUTO DIFF WBC Reviewed 02/16/2013 12:00 AM COMPREHEN METABOLIC PANEL Reviewed 02/16/2013 12:00 AM LIPID PANEL Reviewed 08/03/2018 12:00 AM COMPLETE CBC W/AUTO DIFF WBC Returned 08/03/2018 12:00 AM COMPREHEN METABOLIC PANEL Returned 02/18/2013 12:00 AM Flu Injection 3 Years And Above [facility]# [phone] 81-0384-15 [facility] Reviewed 09/30/2013 12:00 AM COMPLETE CBC W/AUTO [...] CVX Influenza 02/07/2012 sanofi pasteur PMC FLUZONE [id number] Intramuscular Left Arm 02/07/2012 11/04/2011 141 X 02/07/2012 Merck & Co., Inc. MSD PNEUMOVAX 23 1947aa Intramu scular Right Arm 02/07/2012 02/07/2009 33 Influenza 02/18/2013 sanofi pasteur PMC FLUZONE [id number] Intramuscula r Left Deltoid 02/18/2013 11/27/2012 141 Pneumococcal 03/24/2015 Majgh-Ueubwv-Qabsvyf-Praxis WAL PREVNAR 13 [id number] Intramuscular Right Deltoid 03/24/2015 07/01/2012 133 X 03/24/2015 Ekblo-Ixzfse-Guqrjnj-Praxis WAL PREVNAR 13 [id number] Intramuscular Right Deltoid 03/24/2015 07/01/2012 133 Influenza 03/24/2015 sanofi pasteur PMC Fluzone Quadrivalent UI4 31AE Intramuscular Left Deltoid 03/24/2015 12/09/2014 141 Influenza 02/27/2016 sanofi pasteur PMC FLUZONE [id number] Intramuscula r Left Deltoid 02/27/2016 12/09/2014 141 Influenza 03/06/2017 GlaxoSmithKline SKB Flulaval quadrivalent 7R 22L Intramuscular Left Deltoid 03/06/2017 12/09/2014 158 Influenza 01/29/2018 GlaxoSmithKline SKB Flulaval quadrivalent UJ [id number] Intramuscular Left Deltoid [...] 2018 1:06PM Hyperlipidemia Aug 03 2018 2:49PM Neuropathy Nov 03 2018 3:08PM Chronic pain Nov 03 2018 3:08PM Payers Insurance Name Company Name Plan Name Plan Number Policy Number Dwight cy Group Number Start Date Medicare [facility] Medicare [facility] [id number] N/ A BCBS Bcbs [facility] [id number] Mo nday, 2008 Medicare Part A Medicare Part A [id number] N/A Medicare Part A Medicare - Lab/Xray [id number] N/A Medicare [facility] Medicare [facility] [id number] N/A Medicare Part B Medicare Of [place] [id number] Wednesday, December 03, 2008 History of Encounters Visit Date Visit Type Provider 11/03/2018 Office visit Yoni Buckner MD 05/07/2018 Office visit Yoni Buckner MD 01/29/2018 [...] visit Yoni Buckner MD 04/08/2017 Office visit Yoni Buckner MD 03/06/2017 Office visit Yoni Buckner MD 10/10/2016 Office visit Yoni Buckner [...] 09/24/2011 Office visit Yoni Buckner MD 09/24/2011 Hospital Ewelina Peres MD 09/19/2011 [facility] Ewelina Peres MD 09/17/2011 [facility] Ewelina Peres MD 09/16/2011 [facility] Ewelina Peres MD 09/12/2011 [facility] Ewelina Peres MD 09/10/2011 [facility] Ewelina Peres MD 09/01/2011 [facility] Justine Linares MD 08/31/2011 [facility] Lamar Rendon MD 08/31/2011 [facility] Justine Linares MD 08/29/2011 [facility] Dominique Wright MD 08/28/2011 [facility] Dominique Wright MD 08/28/2011 [facility] Lamar Rendon MD 06/13/2011 Office visit Yeimi Christian APRN 07/23/2010 Office visit Federico Rodríguez MD 01/12/2009 Office visit Yoni Buckner MD
--- OUTSIDE RECORDS SUMMARY | 2019-11-24 14:02 | XMS REPORT ---
Author Author Dasia Buckner [facility] Physicians oup Address [address] [place] [id number] Care Team Providers Care Brisket Puller Name Role Phone Yoni Buckner PCP Yoni Buckner PreferredProvider Allergies and Adverse Reactions Name Reaction Notes PENICILLINS Plan of Treatment Planned Activity Comments Planned Date Planned Time Plan/Goal Flu vaccine 3 yrs & older V4 P-free Medicare 4 12:00 AM nonhealing ulceration Medications Active Name Start Date Estimated Completion Date SIG Co mments gabapentin 800 mg oral tablet 05/06/2013 TA KE ONE TABLET BY MOUTH THREE TIMES DAILY pravastatin 40 mg oral tablet 06/28/2013 TAKE ONE TA BLET BY MOUTH EVERY DAY pravastatin 40 mg oral tablet 04/25/2014 TAKE ONE TA BLET BY MOUTH EVERY DAY Lyrica 200 mg oral capsule 05/03/2014 TAKE ONE CAPSULE BY MOUTH THREE TIMES DAILY mirtazapine 30 mg oral tablet 06/29/2014 TA KE ONE TABLET BY MOUTH EVERY DAY BEFORE BEDTIME mirtazapine 30 mg oral tablet 10/25/2014 TA KE ONE TABLET BY MOUTH EVERY DAY BEFORE BEDTIME pravastatin 40 mg oral tablet 03/23/2015 TAKE ONE TA BLET BY MOUTH ONCE DAILY Ultram 50 mg oral tablet 09/30/2017 take 1 tablet (50 mg) by oral route every 6 hours as needed tramadol 50 mg oral tablet 01/29/2018 take 1 tablet by oral route every 4 hours as needed Lyrica 200 mg oral capsule 03/02/2018 TAKE [...] once daily before bedtime for 30 days gabapentin 800 mg oral tablet 11/18/2012 05/17/2013 ta ke 1 tablet (800 mg) by oral route 3 times per day for 30 days mirtazapine 30 mg oral tablet 06/16/2013 10/14/2013 TA KE ONE TABLET BY MOUTH EVERY DAY BEFORE BEDTIME Lyrica 200 mg oral capsule 03/30/2014 07/28/2014 take 1 capsule (200 mg) by oral route 2 times per day for 30 days doxycycline hyclate 100 mg oral capsule 10/20/2015 take 1 capsule by oral route 2 times a day for 10 days pravastatin 40 mg oral tablet 03/06/2017 03/06/2017 TA KE ONE TABLET BY MOUTH ONCE DAILY mirtazapine 30 mg oral tablet 03/11/2017 03/11/2017 TA KE ONE TABLET BY MOUTH EVERY DAY BEFORE BEDTIME Lyrica 200 mg oral capsule 09/30/2017 03/29/2018 take 1 capsule (200 mg) by oral route 3 times per day for 30 days Discontinued Name Start Date Discontinued Date [...] route every 12 hours for 14 days Problem List Description Status Onset Vasculitis Active 10/09/2011 Hyperlipidemia Active / Cerebrovascular Accident (CVA) Active Vital Signs Date Time BP-Sys(mm[Hg] BP-Arlen(mm[Hg]) HR(bpm) RR(rpm) Temp WT HT HC BMI BSA BMI Percentile O2 Sat(%) 01/29/2018 2:23:00 PM 120 mmHg 78 mmHg 95 bpm 18 rpm 97.2 F 146.25 lbs 64 i n 25.1035 kg/m 1.7308 m 94 % 09/30/2017 2:26:00 PM 128 mmHg 86 mmHg 89 bpm 18 rpm 97.7 F 144 lbs 64 in 24.72 kg/m2 1.72 m2 93 % 06/25/2017 10:49:00 AM 130 mmHg 82 mmHg 90 bpm 20 rpm 97.1 F 142 lbs 64 in 24.374 kg/m 1.7054 m 95 % 06/24/2017 2:25:00 PM 118 mmHg 76 mmHg 98 bpm 16 rpm 96 F 143.125 lbs 64 i n 24.57 kg/m2 1.71 m2 94 % 06/11/2017 9:57:00 AM 140 mmHg 86 mmHg 102 bpm 20 rpm 97.5 F 142 lbs 64 in 24.374 kg/m 1.7054 m 96 % 06/04/2017 11:14:00 AM 110 mmHg 80 mmHg 103 bpm 18 rpm 96.4 F 142 lbs 64 in 24.37 kg/m2 1.71 m2 94 % 06/02/2017 2:54:00 PM 130 mmHg [...] AM Flu Injection 3 Years And Above [facility]# [phone] 81-0384-15 [facility] Reviewed 03/06/2017 12:00 AM INFLUENZA VAC 4 [...] AM Flu Injection 3 Years And Above [facility]# [phone] 81-0384-15 C Reviewed 09/30/2013 12:00 AM [...] CVX Influenza 02/07/2012 sanofi pasteur PMC FLUZONE [id number] Intramuscular Left Arm 02/07/2012 11/04/2011 141 X 02/07/2012 [employer]ck [employer] Co., Inc. MSD PNEUMOVAX 23 1947aa Intramu scular Right Arm 02/07/2012 02/07/2009 33 Influenza 02/18/[facility] PMC FLUZONE [id number] Intramuscula r Left Deltoid 02/18/2013 11/27/2012 141 Pneumococcal 03/24/2015 Qjgmt-Ochmnk-Tlgrodx-Praxis WAL PREVNAR 13 [id number] Intramuscular Right Deltoid 03/24/2015 07/01/2012 133 X 03/24/2015 Sktyy-Lroqox-Ahiabyu-Praxis WAL PREVNAR 13 [id number] Intramuscular Right Deltoid 03/24/2015 07/01/2012 133 Influenza 03/24/2015 [facility] Fluz[facility] Quadrivalent UI4 31AE Intramuscular Left Deltoid 03/24/2015 12/09/2014 141 Influenza 02/27/[address] [facility] PMC FLUZONE [id number] Intramuscula r Left Deltoid 02/27/2016 12/09/2014 141 Influenza 03/06/2017 GlaxoSmithKline SKB Flulaval quadrivalent 7R 22L Intramuscular Left Deltoid 03/06/2017 12/09/2014 158 Influenza 01/29/2018 GlaxoSmithKline SKB Flulaval quadrivalent UJ [id number] Intramuscular Left Deltoid 01/29/2018 05/05/2017 158 History of Past Illness Name Date [...] 2017 2:27PM Neuropathy Jan 29 2018 2:27PM Payers Insurance Name Company Name Plan Name Plan Number Policy Number Dwight cy Group Number Start Date Medicare RHC Medicare RHC [id number] N/ A BCBS Bcbs [facility] [id number] 2008 Medicare Part A Medicare Part A [id number] N/A Medicare Part A Medicare - Lab/Xray [id number] N/A Medicare RHC Medicare RHC [id number] N/A Medicare Part B Medicare Of [place] [id number] Wednesday, December 03, 2008 History of Encounters Visit Date Visit Type Provider 01/29/2018 Office visit Yoni Buckner MD 09/30/2017 [...] Ewelina Peres MD 05/11/2012 Office visit Yoni uBckner MD 04/14/2012 Voided Clarita Maddox PRN 02/07/2012 Office visit Yoni Buckner MD 11/19/2011 Office visit Ewelina Peres MD 11/07/2011 Office visit Yoni Buckner MD 10/08/2011 Office visit Yoni Buckner MD 09/24/2011 Office visit Yoni Buckner MD 09/24/2011 [facility] Ewelina Peres MD 09/19/2011 [facility] Ewelina Peres MD 09/17/2011 [facility] Ewelina Peres MD 09/16/2011 [facility] Ewelina Peres MD 09/12/2011 [facility] Ewelina Peres MD 09/10/2011 [facility] Ewelina Peres MD 09/01/2011 [facility] Justine Linares MD 08/31/2011 [facility] Lamar Rendon MD 08/31/2011 [facility] Justine Linares MD 08/29/2011 [facility] Dominique Wright MD 08/28/2011 [facility] Dominique Wright MD 08/28/2011 [facility] Lamar Rendon MD 06/13/2011 Office visit Yeimi Christian APRN 07/23/2010 Office visit Federico Rodríguez MD 01/12/2009 Office visit Yoni Buckner MD
--- OUTSIDE RECORDS SUMMARY | 2019-11-24 14:02 | XMS REPORT ---
Author Author Dasia Bucnker [facility] Physicians oup Address [address] [place] [phone] Care Team Providers Care Junior Systems Engineer Name Role Phone Yoni Buckner PCP Yoni [...] AM Flu Injection 3 Years And Above [facility]# [id number] 81-0384-15 [facility] Reviewed [...] AM Flu Injection 3 Years And Above [facility]# [phone] [id number] C Reviewed 09/30/2013 12:00 AM [...] CVX Influenza 02/07/2012 sanofi pasteur PMC FLUZONE [id number] Intramuscular Left Arm 02/07/2012 11/04/2011 141 X 02/07/2012 [employer]ck & Co., Inc. MSD PNEUMOVAX 23 1947aa Intramu scular Right Arm 02/07/2012 02/07/2009 33 Influenza 02/18/2013 [facility] FLUZONE [id number] Intramuscula r Left Deltoid 02/18/2013 11/27/2012 141 Pneumococcal 03/24/2015 Yvqax-Wrvpcq-Azduuyx-Praxis WAL PREVNAR 13 [id number] Intramuscular Right Deltoid 03/24/2015 07/01/2012 133 X 03/24/2015 Iqqtp-Mypedc-Tqqxwvc-Praxis WAL PREVNAR 13 [id number] Intramuscular Right Deltoid 03/24/2015 07/01/2012 133 Influenza 03/24/2015 [facility] Fluzone Quadrivalent UI4 31AE Intramuscular Left Deltoid 03/24/2015 12/09/2014 141 Influenza 02/27/2016 [facility] PMC FLUZONE [id number] Intramuscula r Left Deltoid 02/27/2016 12/09/2014 141 [...] Number Start Date Medicare RHC Medicare RHC [id number] N/ A BCBS Bcbs [facility] [id number] 2008 Medicare Part A Medicare Part A [id number] N/A Medicare Part A Medicare - Lab/Xray [id number] N/A Medicare RHC Medicare RHC [id number] N/A Medicare Part B Medicare [place] [id number] Wednesday, December 03, 2008 History of Encounters [...] 09/24/2011 Office visit Yoni Buckner MD 09/24/2011 [facility] Ewelina Peres MD 09/19/2011 [facility] Ewelina Peres MD 09/17/2011 [facility] Ewelina Peres MD 09/16/2011 [facility] Ewelina Peres MD 09/12/2011 [facility] Ewelina Peres MD 09/10/2011 [facility] Ewelina Peres MD 09/01/2011 [facility] Jsutine Linares MD 08/31/2011 [facility] Lamar Rendon MD 08/31/2011 [facility] Justine Linares MD 08/29/2011 [facility] Dominique Wright MD 08/28/2011 [facility] Dominique Wright MD 08/28/2011 [facility] Lamar Rendon MD 06/13/2011 Office visit Yeimi Christian APRN 07/23/2010 Office visit Federico Rodríguez MD 01/12/2009 Office visit Yoni Buckner MD
--- OUTSIDE RECORDS SUMMARY | 2019-11-24 14:02 | XMS REPORT ---
Author Author Dasia Buckner Organization [facility] Physicians oup Address [address] [place] [id number] Care Team Providers Care Strand And Binder Controller Name Role Phone Yoni Buckner PCP Yoni [...] ONE TA BLET BY MOUTH ONCE DAILY Lyrica 200 mg oral capsule 03/02/2018 TAKE 1 CAPSULE BY MOUTH THREE TIMES DAILY FOR 30 DAYS tramadol 50 mg oral tablet 05/07/2018 take 1 tablet by oral route every 4 hours as needed Name Start Date Expiration Date SIG Comments [...] AM Flu Injection 3 Years And Above [facility]# [id number] [id number] [facility] Reviewed 03/06/2017 12:00 AM INFLUENZA VAC 4 [...] AM Flu Injection 3 Years And Above [facility]# [phone] [id number] [facility] Reviewed 09/30/2013 12:00 AM COMPLETE CBC W/AUTO [...] CVX Influenza 02/07/2012 sanofi pasteur PMC FLUZONE [id number] Intramuscular Left Arm 02/07/2012 11/04/2011 141 X 02/07/2012 [employer] MSD PNEUMOVAX 23 1947aa Intramu scular Right Arm 02/07/2012 02/07/2009 33 Influenza 02/18/2013 sanofi pasteur PMC FLUZONE [id number] Intramuscula r Left Deltoid 02/18/2013 11/27/2012 141 Pneumococcal 03/24/2015 Hpcxe-Aqrxrg-Ladiqtn-Praxis WAL PREVNAR 13 [id number] Intramuscular Right Deltoid 03/24/2015 07/01/2012 133 X 03/24/2015 Zgcmy-Gongqd-Ylsejva-Praxis WAL PREVNAR 13 [id number] Intramuscular Right Deltoid 03/24/2015 07/01/2012 133 Influenza 03/24/2015 sanofi pasteur PMC Fluzone Quadrivalent UI4 31AE Intramuscular Left Deltoid 03/24/2015 12/09/2014 141 Influenza 02/27/2016 sanofi pasteur PMC FLUZONE [id number] Intramuscula r Left Deltoid 02/27/2016 12/09/2014 141 [...] 1:06PM Chronic pain May 07 2018 1:06PM Payers Insurance Name Company Name Plan Name Plan Number Policy Number Dwight cy Group Number Start Date Medicare RH Medicare RHC [id number] N/ A BCBS Bcbs [facility] [id number] Mo 2008 Medicare Part A Medicare Part A [id number] N/A Medicare Part A Medicare - Lab/Xray [id number] N/A Medicare RHC Medicare RHC [id number] N/A Medicare Part B Medicare [place] [id number] Wednesday, December 03, 2008 History of Encounters [...] 09/24/2011 Office visit Yoni Buckner MD 09/24/2011 [facility] Ewelina Peres MD 09/19/2011 [facility] Ewelina Peres MD 09/17/2011 [facility] Ewelina Peres MD 09/16/2011 [facility] Ewelina Peres MD 09/12/2011 [facility] Ewelina Peres MD 09/10/2011 [facility] Ewelina Peres MD 09/01/2011 [facility] Justine Linares MD 08/31/2011 [facility] Lamar Rendon MD 08/31/2011 [facility] Justine Linares MD 08/29/2011 [facility] Dominique Wright MD 08/28/2011 [facility] Dominique Wright MD 08/28/2011 [facility] Lamar Rendon MD 06/13/2011 Office visit Yeimi Christian MARKETING MANAGER 07/23/2010 Office visit Federico Rodríguez MD 01/12/2009 Office visit Yoni Buckner MD
--- OUTSIDE RECORDS SUMMARY | 2019-11-24 14:03 | XMS REPORT ---
Author Author Dasia Almazan [facility] Physicians oup Address [address] [place] [phone] Care Team Providers Care Telemarketing Sales Representative Name Role Phone Brayan Almazan PCP Yoni Buckner PreferredProvider Allergies and Adverse [...] ONE TA BLET BY MOUTH ONCE DAILY promethazine 25 mg oral tablet 10/30/2015 t katie 1 tablet (25 mg) by oral route every 6 hours as needed promethazine 25 mg oral tablet 11/26/2016 T KATIE ONE TABLET BY MOUTH EVERY 6 HOURS NEEDED Zithromax Z-Salvador 250 mg oral tablet take 2 tablets (500 mg) by oral route once daily for 1 day then 1 tablet (250 mg) by oral route once daily for 4 days Ultram 50 mg oral tablet 01/08/2017 take 1 tablet (50 mg) by oral route every 6 hours as needed Lyrica 200 mg oral capsule 01/24/2017 07/23/2017 take 1 capsule (200 mg) by oral route 3 times per day for 30 days Bactrim DS 800-160 mg oral tablet 04/08/2017 take 1 tablet by oral route every 12 hours for 14 days Name Start Date Expiration Date SIG Comments [...] TABLET BY MOUTH EVERY DAY BEFORE BEDTIME Discontinued Name Start Date Discontinued Date SIG [...] route every 12 hours for 7 days Problem List Description Status Onset Vasculitis Active 10/09/2011 Hyperlipidemia Active /5 Cerebrovascular Accident (CVA) Active Vital Signs Date Time BP-Sys(mm[Hg] BP-Arlen(mm[Hg]) HR(bpm) RR(rpm) Temp WT HT HC BMI BSA BMI Percentile O2 Sat(%) 06/11/2017 9:57:00 AM 140 mmHg 86 mmHg [...] AM Flu Injection 3 Years And Above [facility]# [phone] [id number] [facility] Reviewed 03/06/2017 12:00 AM INFLUENZA VAC 4 VALENT PRSRV FREE 3 YRS PLUS IM Reviewed 02/16/2013 12:00 AM ROUTINE VENIPUNCTURE Reviewed 02/16/2013 12:00 AM COMPLETE CBC W/AUTO DIFF WBC Reviewed 02/16/2013 12:00 AM COMPREHEN METABOLIC PANEL Reviewed 02/16/2013 12:00 AM LIPID PANEL Reviewed 02/18/2013 12:00 AM Flu Injection 3 Years And Above [facility]# [id number] [facility] Reviewed 09/30/2013 12:00 AM COMPLETE CBC W/AUTO [...] mL/min/1.73 m2eGFR AA* >60 CHOLESTEROL 260.0 mg/dL History Of Immunizations Name Date Admin Mfg Name Mfg Code Trade Name Lot# Route Inj Vis Given Vis Pub CVX Influenza 02/07/2012 sanofi pasteur PMC Fluzone [id number] Intramuscular Left Arm 02/07/2012 11/04/2011 141 X 02/07/2012 Merck & Co., Inc. MSD Pneumovax 23 1947aa Intramu scular Right Arm 02/07/2012 02/07/2009 33 Influenza 02/18/2013 sanofi pasteur PMC Fluzone [id number] Intramuscula r Left Deltoid 02/18/2013 11/27/2012 141 Pneumococcal 03/24/2015 Kbexa-Gmbqzu-Gdsqrbl-Praxis WAL Prevnar 13 [id number] Intramuscular Right Deltoid 03/24/2015 07/01/2012 133 X 03/24/2015 Bzskq-Imtizt-Higucvi-Praxis WAL Prevnar 13 [id number] Intramuscular Right Deltoid 03/24/2015 07/01/2012 133 Influenza 03/24/2015 sanofi pasteur PMC Fluzone Quadrivalent UI4 31AE Intramuscular Left Deltoid 03/24/2015 12/09/2014 141 Influenza 02/27/2016 sanofi pasteur PMC Fluzone [id number] Intramuscula r Left Deltoid 02/27/2016 12/09/2014 141 Influenza 03/06/2017 GlaxoSmithKline SKB Flulaval Quadrivalent [id number] [id number] Intramuscular Left Deltoid 03/06/2017 12/09/2014 158 History of Past Illness Name Date [...] upper extremity, left Jun 11 2017 10:50AM Payers Insurance Name Company Name Plan Name Plan Number Policy Number Dwight cy Group Number Start Date Medicare RHC Medicare [place] [id number] N/A BCBS Bcbs [facility] [id number] Mo 2008 Medicare Part A Medicare Part A [id number] N/A Medicare Part A Medicare - Lab/Xray [id number] N/A Medicare Part B Medicare Of [place] [id number] Wednesday, December 03, 2008 History of Encounters Visit Date Visit Type Provider 06/11/2017 Procedures Brayan Almazan MD 06/04/2017 Office [...] Voided Clarita Maddox PRN 02/07/2012 Office visit oYni Buckner MD 11/19/2011 Office visit Ewelina Peres MD 11/07/2011 Office visit Yoni Buckner MD 10/08/2011 Office visit Yoni Buckner MD 09/24/2011 Office visit Yoni Buckner MD 09/24/2011 [facility] Ewelina Peres MD 09/19/2011 [facility] Ewelina Peres MD 09/17/2011 [facility] Ewelina Peres MD 09/16/2011 [facility] Ewelina Peres MD 09/12/2011 [facility] Ewelina Peres MD 09/10/2011 [facility] Ewelina Peres MD 09/01/2011 [facility] Justine Linares MD 08/31/2011 [facility] Lamar Rendon MD 08/31/2011 [facility] Justine Linares MD 08/29/2011 [facility] oDminique Wright MD 08/28/2011 [facility] Dominique Wright MD 08/28/2011 [facility] Lamar Rendon MD 06/13/2011 Office visit Yeimi Christian COLLECTIONS REP 07/23/2010 Office visit Federico Rodríguez MD 01/12/2009 Office visit Yoni Buckner MD
--- OUTSIDE RECORDS SUMMARY | 2019-11-24 14:03 | XMS REPORT ---
Author Author Dasia Buckner [facility] oup Address [address] [place] [id number] Care Team Providers Care Collections Rep Name Role Phone Yoni Buckner PCP Yoni Buckner PreferredProvider Allergies and Adverse Reactions Name Reaction Notes PENICILLINS Plan of Treatment Planned Activity Comments Planned Date Planned Time Plan/Goal Flu vaccine, Quadrivalent, Split Virus (single-use syringe) - [facility] Medicare 01/29/2018 12:00 AM Flu vaccine 3 yrs & [...] as needed Lyrica 200 mg oral capsule 09/30/2017 03/29/2018 take 1 capsule (200 mg) by oral route 3 times per day for 30 days tramadol 50 mg oral tablet 01/29/2018 take [...] 113 lbs 64 in 19.3962 kg/m 1.5213 09/30/2013 11:14:00 AM 108 mmHg 70 mmHg [...] AM Flu Injection [address] [facility]# [phone] [id number] [facility] Reviewed 03/06/2017 12:00 AM INFLUENZA VAC 4 VALENT PRSRV FREE 3 YRS PLUS IM Reviewed 02/16/2013 12:00 AM ROUTINE VENIPUNCTURE Reviewed 02/16/2013 12:00 AM COMPLETE CBC W/AUTO DIFF WBC Reviewed 02/16/2013 12:00 AM COMPREHEN METABOLIC PANEL Reviewed 02/16/2013 12:00 AM LIPID PANEL Reviewed 02/18/2013 12:00 AM Flu Injection [address] [facility]# [phone] [id number] [facility] Reviewed 09/30/2013 12:00 AM COMPLETE CBC W/AUTO [...] CVX Influenza 02/07/2012 sanofi pasteur PMC FLUZONE [id number] Intramuscular Left Arm 02/07/2012 11/04/2011 141 X 02/07/2012 Merck & Co., Inc. MSD PNEUMOVAX 23 1947aa Intramu scular Right Arm 02/07/2012 02/07/2009 33 Influenza 02/18/2013 [facility] FLUZONE [id number] Intramuscula r Left Deltoid 02/18/2013 11/27/2012 141 Pneumococcal 03/24/2015 Bgezo-Jwting-Wfztqao-Praxis WAL PREVNAR 13 [id number] Intramuscular Right Deltoid 03/24/2015 07/01/2012 133 X 03/24/2015 Xhhxv-Jkelvu-Lvkrbpi-Praxis WAL PREVNAR 13 [id number] Intramuscular Right Deltoid 03/24/2015 07/01/2012 133 Influenza 03/24/2015 [facility] Fluzone Quadrivalent [id number] Intramuscular Left Deltoid 03/24/2015 12/09/2014 141 Influenza 02/27/2016 [facility] FLUZONE [id number] Intramuscula r Left Deltoid 02/27/2016 12/09/2014 141 Influenza 03/06/2017 GlaxVC VISIONKline SKB Flulaval quadrivalent [id number] Intramuscular Left [...] [place] Group Number Start Date Medicare [facility] Medicare [facility] [id number] N/ A BCBS Bcbs [facility] [id number] Mo nday, 2008 Medicare Part A Medicare Part A [id number] N/A Medicare Part A Medicare - Lab/Xray [id number] N/A Medicare RHC Medicare RHC [id number] N/A Medicare Part B Medicare Of [place] [id number] Wednesday, December 03, 2008 History of Encounters [...] Yoni Buckner MD 10/08/2011 Office visit Yoni Bukcner MD 09/24/2011 Office visit Yoni Buckner MD 09/24/2011 [facility] Ewelina Peres MD 09/19/2011 [facility] Ewelina Peres MD 09/17/2011 [facility] Ewelina Peres MD 09/16/2011 [facility] Ewelina Peres MD 09/12/2011 [facility] Ewelina Peres MD 09/10/2011 [facility] Ewelina Peres MD 09/01/2011 [facility] Justine Linares MD 08/31/2011 [facility] Lamar Rendon MD 08/31/2011 [facility] Justine Linares MD 08/29/2011 [facility] Dominique Wright MD 08/28/2011 [facility] Dominique Wright MD 08/28/2011 [facility] Lamar Rendon MD 06/13/2011 Office visit Yeimi Christian APRN 07/23/2010 Office visit Federico Rodríguez MD 01/12/2009 Office visit Yoni Buckner MD
--- OUTSIDE RECORDS SUMMARY | 2019-11-24 14:04 | XMS REPORT ---
Author Author Dasia Buckner Organization [facility] oup Address [address] [place] [id number] Care Team Providers Care Sub Master Name Role Phone Yoni Buckner PCP Unavailable Allergies and Adverse Reactions Name Reaction Notes NO KNOWN DRUG ALLERGIES Plan of Treatment Planned Activity Comments Planned Date Planned Time Plan/Goal FLU VAC NO PRSV 4 MARISA 3 YRS+ 02/24/2014 12:00 AM Medications Active Name Start Date Estimated Completion [...] ONCE DAILY Lyrica 200 mg oral capsule 05/29/2015 11/25/2015 take 1 capsule (200 mg) by oral route 3 times per day for 30 days Ultram 50 mg oral tablet 06/26/2015 take 1 tablet (50 mg) by oral route every 6 hours as needed Name Start Date Expiration [...] 2 times per day for 30 days Discontinued Name Start Date Discontinued Date SIG Comments pravastatin 40 mg oral tablet 08/15/2011 09/24/2011 ta ke 1 tablet by oral route QD for 30 days fexofenadine 60 mg oral tablet 08/22/2011 09/24/2011 t ana maria 1 tablet (60 mg) by oral route [...] ONE TABLET BY MOUTH THREE TIMES DAILY Problem List Description Status Onset Vasculitis Active 10/09/2011 Hyperlipidemia Active / Cerebrovascular Accident (CVA) Active Vital Signs Date Time BP-Sys(mm[Hg] BP-Arlen(mm[Hg]) HR(bpm) RR(rpm) Temp WT HT HC BMI BSA BMI Percentile O2 Sat(%) 06/26/2015 9:13:00 AM 132 mmHg 74 mmHg 92 bpm 18 rpm 97.8 F 152 lbs 64 in 26.09 kg/m2 1.76 m2 95 % 03/24/2015 10:05:00 AM 118 mmHg 82 mmHg 88 bpm 18 rpm 96.6 F 148 lbs 64 in 25.4039 kg/m 1.7411 m 95 % 09/27/2014 9:58:00 AM 122 mmHg 80 mmHg 80 bpm 18 rpm 97.4 F 137 lbs 64 in 23.52 kg/m2 1.68 m2 03/30/2014 9:50:00 AM 122 mmHg 74 mmHg 88 bpm 18 rpm 97.8 F 126 lbs 64 in 21.6276 kg/m 1.6065 m 10/21/2013 9:21:00 AM 122 mmHg 70 mmHg 88 bpm 18 rpm 113 lbs 64 in 19.40 kg/m2 1.52 m2 09/30/2013 11:14:00 AM 108 mmHg 70 mmHg 82 bpm 16 rpm 96.6 F 114 lbs 66 in 18.3999 kg/m 1.5518 m 02/18/2013 9:32:00 AM 122 mmHg 70 mmHg 80 bpm 18 rpm 98.1 F 116 lbs 66 in 18.72 kg/m2 1.57 m2 11/18/2012 10:34:00 AM 114 mmHg 70 mmHg 100 bpm 18 rpm 98.5 F 117 lbs 64 in 20.0828 kg/m 1.548 m 08/12/2012 9:58:00 AM 122 mmHg 72 mmHg 88 bpm 16 rpm 97.8 F 119 lbs 64 in 20.43 kg/m2 1.56 m2 07/16/2012 10:20:00 AM 132 mmHg 82 mmHg 88 bpm 16 rpm 97.4 F 117 lbs 64 in 20.0828 kg/m 1.548 m 05/11/2012 9:38:00 AM 118 mmHg 80 mmHg 78 bpm 18 rpm 97.8 F 116 lbs 64 in 19.91 kg/m2 1.54 m2 02/07/2012 9:54:00 AM 125 mmHg 65 mmHg 117 bpm 18 rpm 96.6 F 117 lbs 64 in 20.0828 kg/m 1.548 m 95 % 11/19/2011 10:10:00 AM 122 mmHg 70 mmHg 98 bpm 18 rpm 97.7 F 112 lbs 64 in 19.22 kg/m2 1.51 m2 11/07/2011 3:39:00 PM 112 mmHg 68 mmHg 94 bpm 18 rpm 97.8 F 113 lbs 64 in 19.3962 kg/m 1.5213 m 10/08/2011 3:06:00 PM 98 mmHg 70 mmHg 94 bpm 18 rpm 97.6 F 109 lbs 64 in 18.71 kg/m2 1.49 m2 09/24/2011 1:20:00 PM 116 mmHg 64 mmHg 82 bpm 18 rpm 97.6 F 106 lbs 64 in 18.1947 kg/m 1.4735 m 06/13/2011 2:23:00 PM 118 mmHg 64 mmHg 68 bpm 18 rpm 97.3 F 112.5 lbs 64 in 19.31 kg/m2 1.52 m2 07/23/2010 2:33:00 PM 104 bpm 97.3 F 115 lbs 96 % Social History Name Description Comments Cigarette smoking Current - status unknown Tobacco Never smoker History of Procedures Date Ordered Description Order Status 03/24/2015 12:00 AM INFLUENZA VACCINE QUADRIVALENT 3 YRS PLU S IM Reviewed 03/24/2015 12:00 AM PNEUMOCOCCAL VACC 13 MARISA IM Reviewed 06/13/2011 12:00 AM COMPLETE CBC W/AUTO DIFF WBC Returned 06/13/2011 12:00 AM COMPREHEN METABOLIC PANEL Returned 06/13/2011 12:00 AM LIPID PANEL Returned 08/14/2011 12:00 AM METABOLIC PANEL TOTAL CA Returned 08/14/2011 12:00 AM LIPID PANEL Returned 11/14/2011 12:00 AM COMPLETE CBC W/AUTO DIFF WBC Returned 11/14/2011 12:00 AM METABOLIC PANEL TOTAL CA Returned 02/07/2012 12:00 AM COMPLETE CBC W/AUTO DIFF WBC Reviewed 02/07/2012 12:00 AM COMPREHEN METABOLIC PANEL Reviewed 02/07/2012 12:00 AM Pneumovax Injection - RHC Reviewed 02/07/2012 12:00 AM Flu Injection 3 Years And Above [facility]# [phone] C Reviewed 02/16/2013 12:00 AM COMPLETE CBC W/AUTO DIFF WBC Reviewed 02/16/2013 12:00 AM COMPREHEN METABOLIC PANEL Reviewed 02/16/2013 12:00 AM LIPID PANEL Reviewed 02/18/2013 12:00 AM Flu Injection 3 Years And Above [facility]# [phone] C Reviewed 09/30/2013 12:00 AM [...] AM ASSAY BLD/SERUM CHOLESTEROL Reviewed Results Summary Data and Description Results 06/14/2011 8:08 AM WBC 9.3 RBC 5.01 HGB 15.60 g /dLHCT 44.60 %MCV 89.0 fLMCH 31.10 pgMCHC 35.0 g/dLRDW CV 13.90 %MPV 9.70 fLPLT 312 %NEUT 57.10 %%LYMP 31.80 %%MONO 7.30 %%EOS 3.0 %%BASO 0.80 %#NEUT 5.33 #LYMP 2.97 #MONO 0.68 #EOS 0.28 #BASO 0.07 GLUCOSE 89.0 mg/dLSODIUM 131.0 mmol/LPOTASSIUM 5.10 mmol/LCHLORIDE 98.0 mmol/LCO2 25.0 mmol/LBUN 9.0 mg/dLCREATININE 0.70 mg/dLSGOT/AST 14.0 IU/LSGPT/ALT 10.0 IU/LALK PHOS 98.0 IU/LTOTAL PROTEIN 7.60 g/dLALBUMIN 4.40 g /dLTOTAL BILI 0.60 mg/dLCALCIUM 9.60 mg/dLeGFR >60 mL/min/1.73 [id number] 114.0 mg/dLCHOLESTEROL 326.0 mg/dLHDL 47.0 mg/dLLDL (CALC) 256.0 mg/dL 08/15/2011 8:22 AM GLUCOSE 82.0 mg/dLSODIUM 135 .0 mmol/LPOTASSIUM 4.50 mmol/LCHLORIDE 99.0 mmol/LCO2 26.0 mmol/LBUN 6.0 mg/dLCREATININE 0.70 mg/dLCALCIUM 9.70 mg/dLeGFR 60 TRIGLYCERIDES 78.0 mg/dLCHOLESTEROL 223.0 mg/d LHDL 52.0 mg/dLLDL (CALC) 155.0 mg/dL 11/14/2011 9:20 AM GLUCOSE 134.0 mg/dLSODIUM 13 1.0 mmol/LPOTASSIUM 4.0 mmol/LCHLORIDE 97.0 mmol/LCO2 22.0 mmol/LBUN 7.0 mg/dLCREATININE 0.70 mg/dLCALCIUM 8.80 mg/dLeGFR 60 WBC 10.9 RBC 4.38 HGB 13.20 g/dLHCT 39.10 %MCV 89.0 fLMCH 30.10 pgMCHC 33.80 g/dLRDW CV 14.40 %MPV 9.90 fLPLT 198 %NEUT 70.80 %%LYMP 16.70 %%MONO 12.0 %%EOS 0.0 %%BASO 0.50 %#NEUT 7.73 #LYMP 1.82 #MONO 1.31 #EOS 0.00 #BASO 0.05 11/19/2011 11:05 AM WBC 9.4 RBC 4.26 HGB 12.90 g /dLHCT 37.90 %MCV 89.0 fLMCH 30.30 pgMCHC 34.0 g/dLRDW CV 15.0 %MPV 9.70 fLPLT 264 %NEUT 65.20 %%LYMP 20.30 %%MONO 11.70 %%EOS 2.10 %%BASO 0.70 %#NEUT 6.11 #LYMP 1.90 #MONO 1.10 #EOS 0.20 #BASO 0.07 GLUCOSE 97.0 mg/dLSODIUM 133.0 mmol/LPOTASSIUM 4.30 mmol/LCHLORIDE 97.0 mmol/LCO2 27.0 mmol/LBUN 11.0 mg/dLCREATININE 0.70 mg/dLSGOT/AST 87.0 IU/LSGPT/ALT 103.0 IU/LALK PHOS 107.0 IU/LTOTAL PROTEIN 6.90 g/dLALBUMIN 3.80 g/dLTOTAL BILI 0.40 mg/dLCALCIUM 8.90 mg/dLeGFR 60 TSH 1.660 uIU/mL 02/07/2012 10:28 AM WBC 13.6 RBC 4.98 HGB 15.10 g/dLHCT 43.80 %MCV 88.0 fLMCH 30.30 pgMCHC 34.50 g/dLRDW CV 14.20 %MPV 9.90 fLPLT 340 %NEUT 77.80 %%LYMP 13.90 %%MONO 7.20 %%EOS 0.70 %%BASO 0.40 %#NEUT 10.62 #LYMP 1.89 #MONO 0.98 #EOS 0.10 #BASO 0.05 GLUCOSE 84.0 mg/dLSODIUM 137.0 mmol/LPOTASSIUM 4.80 mmol/LCHLORIDE 100.0 mmol/LCO2 25.0 mmol/LBUN 10.0 mg/dLCREATININE 0.70 mg/dLSGOT/AST 15.0 IU/LSGPT/ALT 12.0 IU/LALK PHOS 92.0 IU/LTOTAL PROTEIN 7.60 g/dLALBUMIN 4.50 g/dLTOTAL BILI 0.40 mg/dLCALCIUM 10.40 mg/dLeGFR 60 02/17/2013 8:05 AM GLUCOSE 85.0 mg/dLSODIUM 132 .0 mmol/LPOTASSIUM 4.30 mmol/LCHLORIDE 99.0 mmol/LCO2 24.0 mmol/LBUN 6.0 mg/dLCREATININE 0.70 mg/dLSGOT/AST 20.0 IU/LSGPT/ALT 16.0 IU/LALK PHOS 97.0 IU/LTOTAL PROTEIN 7.50 g/dLALBUMIN 4.40 g/dLTOTAL BILI 0.60 mg/dLCALCIUM 9.50 mg/dLeGFR >60 mL/min/1.73 [id number] 113.0 mg/dLCHOLESTEROL 225.0 mg/dLHDL 50.0 mg/dLLDL (CALC) 152.0 mg/dLWBC 8.1 RBC 4.98 HGB 15.40 g/dLHCT 43.90 %MCV 88.0 fLMCH 30.90 pgMCHC 35.10 g/dLRDW CV 13.80 %MPV 9.70 fLPLT 303 %NEUT 55.40 %%LYMP 32.90 %%MONO 8.10 %%EOS 2.70 %%BASO 0.90 %#NEUT 4.47 #LYMP 2.65 #MONO 0.65 #EOS 0.22 #BASO 0.07 10/01/2013 8:12 AM TSH 1.410 uIU/mLWBC 8.5 RBC 5.10 HGB 15.90 g/dLHCT 45.30 %MCV 89.0 fLMCH 31.20 pgMCHC 35.10 g/dLRDW CV 13.80 %MPV 9.80 fLPLT 324 %NEUT 53.30 %%LYMP 34.50 %%MONO 7.80 %%EOS 3.90 %%BASO 0.50 %#NEUT 4.53 #LYMP 2.93 #MONO 0.66 #EOS 0.33 #BASO 0.04 GLUCOSE 94.0 mg/dLSODIUM 134.0 mmol/LPOTASSIUM 4.10 mmol/LCHLORIDE 101.0 mmol/LCO2 27.0 mmol/LBUN 8.0 mg/dLCREATININE 0.80 mg/dLSGOT/AST 15.0 IU/LSGPT/ALT 17.0 IU/LALK PHOS 83.0 IU/LTOTAL PROTEIN 7.60 g/dLALBUMIN 4.30 g/dLTOTAL BILI 1.0 mg/dLCALCIUM 9.60 mg/dLeGFR 60 VITAMIN B12 384.0 pg/mLTRIGLYCERIDES 105.0 mg/dLCHOLESTEROL 219.0 mg/dLHDL 51.0 mg/dLLDL (CALC) 147.0 mg/dL 09/27/2014 10:55 AM WBC 9.6 RBC 5.31 HGB 16.40 g /dLHCT 46.70 %MCV 88.0 fLMCH 30.90 pgMCHC 35.10 g/dLRDW CV 13.90 %MPV 9.70 fLPLT 270 %NEUT 65.50 %%LYMP 25.30 %%MONO 7.30 %%EOS 1.50 %%BASO 0.40 %#NEUT 6.28 #LYMP 2.43 #MONO 0.70 #EOS 0.14 #BASO 0.04 GLUCOSE 70.0 mg/dLSODIUM 133.0 mmol/LPOTASSIUM 5.10 mmol/LCHLORIDE 98.0 mmol/LCO2 24.0 mmol/LBUN 9.0 mg/dLCREATININE 0.80 mg/dLSGOT/AST 18.0 IU/LSGPT/ALT 10.0 IU/LALK PHOS 99.0 IU/LTOTAL PROTEIN 7.90 g/dLALBUMIN 4.60 g/dLTOTAL BILI 0.40 mg/dLCALCIUM 9.90 mg/dLeGFR >60 mL/min/1.73 [id number] 260.0 mg/dL History Of Immunizations Name Date Admin Mfg Name Mfg Code Trade Name Lot# Route Inj Vis Given Vis Pub CVX Influenza 02/07/2012 sanofi pasteur PMC Fluzone [id number] Intramuscular Left Arm 02/07/2012 11/04/2011 141 Pneumococcal 02/07/2012 Merck & Co., Inc. MSD Pneumovax 23 1947aa In tramuscular Right Arm 02/07/2012 02/07/2009 33 Influenza 02/18/2013 sanofi pasteur PMC Fluzone [id number] Intramuscula r Left Deltoid 02/18/2013 11/27/2012 141 PCV 03/24/2015 Fguuc-Tvaxiu-Ffvjfnq-Praxis WAL Prevnar 13 [id number] Intramuscular Right Deltoid 03/24/2015 07/01/2012 133 Pneumococcal 03/24/2015 Xthcc-Ekljkk-Sbygxbz-Praxis WAL Prevnar 13 [id number] Intramuscular Right Deltoid 03/24/2015 07/01/2012 133 Influenza 03/24/2015 [facility] Fluzone Quadrivalent [id number] Intramuscular Left Deltoid 03/24/2015 12/09/2014 141 History of Past Illness Name Date of Onset Comments Vasculitis 10/09/2011 Cerebrovascular Accident (CVA) Hyperlipidemia 5 Bronchitis Jul 23 2010 2:36PM Family history [...] Low Back Pain Jun 26 2015 9:18AM Payers Insurance Name Company Name Plan Name Plan Number Policy Number [place] Group Number Start Date Medicare Part A Medicare Part A [id number] N/A BCBS Bcbs [facility] [id number] 2008 Medicare Part B Medicare Of [place] [id number] Wednesday, 2008 History of Encounters Visit Date Visit Type Provider 06/26/2015 Office visit Yoni Buckner MD 03/24/2015 [...] [facility] Ewelina Peres MD 09/01/2011 Hospital Justine Linares MD 08/31/2011 [facility] Lamar Rendon MD 08/31/2011 [facility] Justine Linares MD 08/29/2011 [facility] Dominique Wright MD 08/28/2011 [facility] Dominique Wright MD 08/28/2011 [facility] Lamar Rendon MD 06/13/2011 Office visit Yeimi Christian APRN 07/23/2010 Office visit Federico Rodríguez MD 01/12/2009 Office visit Yoni Buckner MD
--- OUTSIDE RECORDS SUMMARY | 2019-11-24 14:04 | XMS REPORT ---
Author Author Dasia Buckner Organization [facility] oup Address [address] [place] [id number] Care Team Providers Care Mission Assessment Specialist Name Role Phone Yoni Buckner PCP Unavailable Yoni Buckner PreferredProvider Unavailable Allergies and Adverse Reactions Name Reaction Notes NO KNOWN DRUG ALLERGIES Plan of Treatment Planned Activity Comments Planned Date Planned Time Plan/Goal Flu vaccine 3 yrs & older V4 P-free Medicare 4 12:00 AM Medications Active Name Start Date [...] ONE TA BLET BY MOUTH ONCE DAILY pravastatin 40 mg oral tablet 08/22/2015 TAKE ONE TA BLET BY MOUTH ONCE DAILY mirtazapine 30 mg oral tablet 10/20/2015 TA KE ONE TABLET BY MOUTH EVERY DAY BEFORE BEDTIME promethazine 25 mg oral tablet 10/30/2015 t ana maria 1 tablet (25 mg) by oral route every 6 hours as needed Lyrica 200 mg oral capsule 07/04/2016 12/31/2016 take 1 capsule (200 mg) by oral route 3 times per day for 30 days Ultram 50 mg oral tablet 07/04/2016 take 1 tablet (50 mg) by oral [...] HC BMI BSA BMI Percentile O2 Sat(%) 10/10/2016 1:17:00 PM 134 mmHg 68 mmHg [...] AM Flu Injection 3 Years And Above [facility]# [phone] [id number] [facility] Reviewed 02/16/2013 12:00 AM ROUTINE VENIPUNCTURE Reviewed 02/16/2013 12:00 AM COMPLETE CBC W/AUTO DIFF WBC Reviewed 02/16/2013 12:00 AM COMPREHEN METABOLIC PANEL Reviewed 02/16/2013 12:00 AM LIPID PANEL Reviewed 02/18/2013 12:00 AM Flu Injection 3 Years And Above [facility]# [phone] [id number] [facility] Reviewed 09/30/2013 12:00 AM COMPLETE CBC W/AUTO [...] 0.00 #BASO 0.05 MANUAL DIFF NOT IND 11/19/2011 11:05 AM WBC 9.4 RBC 4.26 HGB 12.90 g /dLHCT 37.90 %MCV 89.0 fLMCH 30.30 pgMCHC 34.0 g/dLRDW SD 49 RDW CV 15.0 %MPV 9.70 fLPLT 264 NRBC# 0.00 NRBC% 0.0 %NEUT 65.20 %%LYMP 20.30 %%MONO 11.70 %%EOS 2.10 %%BASO 0.70 %#NEUT 6.11 #LYMP 1.90 #MONO 1.10 #EOS 0.20 #BASO 0.07 MANUAL DIFF NOT IND GLUCOSE 97.0 mg/dLSODIUM 133.0 mmol/LPOTASSIUM 4.30 mmol/LCHLORIDE 97.0 mmol/LCO2 27.0 mmol/LBUN 11.0 mg/dLCREATININE 0.70 mg/dLSGOT/AST 87.0 IU/LSGPT/ALT 103.0 IU/LALK PHOS 107.0 IU/LTOTAL PROTEIN 6.90 g/dLALBUMIN 3.80 g/dLTOTAL BILI 0.40 mg/dLCALCIUM 8.90 mg/dLAGE 65 GFR NonAA 83 GFR AA 101 eGFR 60 eGFR AA* 60 TSH 1.660 uIU/mL 02/07/2012 10:28 AM [...] HGB 16.40 g /dLHCT 46.70 %MCV 88.0 [facility] 30.90 pgHC 35.10 g/dLRDW SD 45 RDW CV 13.90 [...] CVX Influenza 02/07/2012 sanofi pasteur PMC Fluzone [id number] Intramuscular Left Arm 02/07/2012 11/04/2011 141 X 02/07/2012 [employer]ck [employer] Co., Inc. MSD Pneumovax 23 1947aa Intramu scular Right Arm 02/07/2012 02/07/2009 33 Influenza 02/18/2013 sanofi pasteur PMC Fluzone [id number] Intramuscula r Left Deltoid 02/18/2013 11/27/2012 141 Pneumococcal 03/24/2015 Qjjmm-Drvutk-Ivlnorj-Praxis WAL Prevnar 13 [id number] Intramuscular Right Deltoid 03/24/2015 07/01/2012 133 X 03/24/2015 Bnycq-Obdsaw-Mugvgpl-Praxis WAL Prevnar 13 [id number] Intramuscular Right Deltoid 03/24/2015 07/01/2012 133 Influenza 03/24/2015 sanofi pasteur PMC Fluzone Quadrivalent [id number] [id number] Intramuscular Left Deltoid 03/24/2015 12/09/2014 141 Influenza 02/27/2016 sanofi pasteur PMC Fluzone [id number] Intramuscula r Left Deltoid 02/27/2016 12/09/2014 141 History of Past Illness Name [...] 2016 1:38PM Neuropathy Oct 10 2016 1:18PM Payers Insurance Name Company Name Plan Name Plan Number Policy Number [place] Group Number Start Date Medicare [facility] Medicare [facility] [id number] N/A [facility] [id number] Mo 2008 Medicare Part A Medicare Part A [id number] N/A Medicare Part A Medicare - Lab/Xray [id number] N/A Medicare Part B Medicare Of [place] [id number] Wednesday, December 03, 2008 History of Encounters Visit Date Visit Type Provider 10/10/2016 Office visit Yoni Buckner MD 07/04/2016 [...] 09/24/2011 Office visit Yoni Buckner MD 09/24/2011 [facility] Ewelina Peres MD 09/19/2011 [facility] Ewelina Peres MD 09/17/2011 [facility] Ewelina Peres MD 09/16/2011 [facility] Ewelina Peres MD 09/12/2011 [facility] Ewelina Peres MD 09/10/2011 [facility] Ewelina Peres MD 09/01/2011 [facility] Justine Linares MD 08/31/2011 [facility] Lamar Rendon MD 08/31/2011 [facility] Justine Linares MD 08/29/2011 [facility] Dominique Wright MD 08/28/2011 Hospital Dominique Wright MD 08/28/2011 [facility] Lamar Rendon MD 06/13/2011 Office visit eYimi Christian BUSINESS ANALYTICS ANALYST 07/23/2010 Office visit Federico Rodríguez MD 01/12/2009 Office visit Yoni Buckner MD
--- OUTSIDE RECORDS SUMMARY | 2019-11-24 14:04 | XMS REPORT ---
Author Author Dasia Buckner Organization [facility] oup Address [address] [place] [id number] Care Team Providers Care Location Director Name Role Phone Yoni Buckner PCP Unavailable [...] ONE TA BLET BY MOUTH ONCE DAILY Bactrim DS 800-160 mg oral tablet take 1 tablet by oral route every 12 hours for 7 days mirtazapine 30 mg oral tablet 10/20/2015 TA KE ONE TABLET BY MOUTH EVERY DAY BEFORE BEDTIME doxycycline hyclate 100 mg oral capsule 10/20/2015 6 take 1 capsule by oral route 2 times a day for 10 days promethazine 25 mg oral tablet 10/30/2015 t ana maria 1 tablet (25 mg) by oral route every 6 hours as needed Lyrica 200 mg oral capsule 10/30/2015 03/28/2016 take 1 capsule (200 mg) by oral route 3 times per day for 30 days Ultram 50 mg oral tablet 10/30/2015 take 1 tablet (50 mg) by oral [...] 3 times per day for 30 days Problem List Description Status Onset Vasculitis Active 10/09/2011 Hyperlipidemia Active /5 Cerebrovascular Accident (CVA) Active Vital Signs Date Time BP-Sys(mm[Hg] BP-Arlen(mm[Hg]) HR(bpm) RR(rpm) Temp WT HT HC BMI BSA BMI Percentile O2 Sat(%) 10/30/2015 10:02:00 AM 128 mmHg 80 mmHg 88 bpm 16 rpm 96.8 F 151 lbs 64 in 25.92 kg/m2 1.76 m2 94 % 10/10/2015 2:13:00 PM 130 mmHg 86 mmHg 88 bpm 96.9 F 152 lbs 64 in 26.0905 kg/m 1.7645 m 96 % 06/26/2015 9:13:00 AM 132 mmHg [...] AM Flu Injection 3 Years And Above [facility]# [id number] [facility] Reviewed 02/16/2013 12:00 AM COMPLETE CBC W/AUTO DIFF WBC Reviewed 02/16/2013 12:00 AM COMPREHEN METABOLIC PANEL Reviewed 02/16/2013 12:00 AM LIPID PANEL Reviewed 02/18/2013 12:00 AM Flu Injection 3 Years And Above [facility]# [phone] [id number] [facility] Reviewed 09/30/2013 12:00 AM COMPLETE CBC W/AUTO [...] BILI 0.60 mg/dLCALCIUM 9.60 mg/dLeGFR >60 mL/min/1.73 [id number] 114.0 mg/dLCHOLESTEROL 326.0 mg/dLHDL 47.0 mg/dLLDL (CALC) [...] BILI 0.60 mg/dLCALCIUM 9.50 mg/dLeGFR >60 mL/min/1.73 [id number] 113.0 mg/dLCHOLESTEROL 225.0 mg/dLHDL 50.0 mg/dLLDL (CALC) [...] BILI 0.40 mg/dLCALCIUM 9.90 mg/dLeGFR >60 mL/min/1.73 [id number] 260.0 mg/dL History Of Immunizations Name Date Admin Mfg Name Mfg Code Trade Name Lot# Route Inj Vis Given Vis Pub CVX Influenza 02/07/2012 sanofi pasteur PMC Fluzone [id number] Intramuscular Left Arm 02/07/2012 11/04/2011 141 X 02/07/2012 [employer]ck [employer]. MSD Pneumovax 23 1947aa Intramu scular Right Arm 02/07/2012 02/07/2009 33 Influenza 02/18/2013 [facility] Fluzone [id number] Intramuscula r Left Deltoid 02/18/2013 11/27/2012 141 PCV 03/24/2015 Qjtud-Otkvqr-Vrvqewv-Praxis [facility] Prevnar 13 [id number] Intramuscular Right Deltoid 03/24/2015 07/01/2012 133 X 03/24/2015 Lkadc-Fmzqln-Mxekpgk-Praxis WAL Prevnar 13 [id number] Intramuscular Right Deltoid 03/24/2015 07/01/2012 133 Influenza 03/24/2015 [facility] Fluzone Quadrivalent [id number] Intramuscular Left Deltoid [...] 2015 2:19PM Neuropathy Oct 30 2015 10:07AM Payers Insurance Name Company Name Plan Name Plan Number Policy Number [place] Group Number Start Date Medicare Part A Medicare [facility] [id number] N/A BCBS Bcbs [facility] [id number] Mo 2008 Medicare Part A Medicare Part A [id number] N/A Medicare Part A Medicare - Lab/Xray [id number] N/A Medicare Part B Medicare [place] [id number] Wednesday, December 03, 2008 History of Encounters Visit Date Visit Type Provider 10/30/2015 Office visit Yoni Buckner MD 10/10/2015 [...] 09/24/2011 Office visit Yoni Buckner MD 09/24/2011 [facility] Ewelina Peres MD 09/19/2011 [facility] Ewelina Peres MD 09/17/2011 [facility] Ewelina Peres MD 09/16/2011 [facility] Ewelina Peres MD 09/12/2011 [facility] Ewelina Peres MD 09/10/2011 [facility] Ewelina Peres MD 09/01/2011 [facility] Justine Linares MD 08/31/2011 [facility] Lamar Rendon MD 08/31/2011 [facility] Justine Linares MD 08/29/2011 [facility] Dominique Wright MD 08/28/2011 [facility] Dominique Wright MD 08/28/2011 [facility] Lamar Rendon MD 06/13/2011 Office visit Yeimi Christian [employer] 07/23/2010 Office visit Federico Rodríguez MD 01/12/2009 Office visit Yoni Buckner MD
--- OUTSIDE RECORDS SUMMARY | 2019-11-24 14:05 | XMS REPORT ---
Author Author Dasia Buckner [facility] Address [address] [place] [id number] Care Team Providers Care Network Account Manager Name Role Phone Yoni Buckner PCP Yoni [...] TABLET BY MOUTH EVERY 6 HOURS NEEDED Lyrica 200 mg oral capsule 01/24/2017 07/23/2017 take 1 capsule (200 mg) by oral route 3 times per day for 30 days Ultram 50 mg oral tablet 06/24/2017 take 1 tablet (50 mg) by oral [...] route every 12 hours for 7 days Zithromax Z-Salvador 250 mg oral tablet 06/24/2017 [...] HC BMI BSA BMI Percentile O2 Sat(%) 06/24/2017 2:25:00 PM 118 mmHg 76 mmHg [...] rpm 98.2 F 142 lbs 64 in 24.37 kg/m2 1.71 m2 93 % 04/08/2017 9:47:00 AM 126 mmHg 74 mmHg 98 bpm 18 rpm 97 F 142.375 lbs 64 i n 24.4384 kg/m 1.7077 m 95 % 03/06/2017 1:19:00 PM 124 mmHg 66 mmHg 97 bpm 18 rpm 96.8 F 142.125 lbs 64 in 24.40 kg/m2 1.71 m2 95 % 10/10/2016 1:17:00 PM 134 mmHg 68 mmHg 94 bpm 18 rpm 97.8 F 144.25 lbs 64 in 24.7602 kg/m 1.7189 m 97 % 07/04/2016 1:36:00 PM 126 mmHg 64 mmHg 97 bpm 18 rpm 97.2 F 143 lbs 64 in 24.55 kg/m2 1.71 m2 96 % 02/27/2016 10:12:00 AM 134 mmHg 82 mmHg 84 bpm 16 rpm 96.7 F 144 lbs 64 in 24.7173 kg/m 1.7174 m 86 % 10/30/2015 10:02:00 AM 128 mmHg [...] F 137 lbs 64 in 23.5158 kg/m 1.68 m2 03/30/2014 9:50:00 AM 122 mmHg 74 mmHg 88 bpm 18 rpm 97.8 F 126 lbs 64 in 21.63 kg/m2 1.6065 m 10/21/2013 9:21:00 AM 122 mmHg 70 mmHg 88 bpm 18 rpm 113 lbs 64 in 19.3962 kg/m 1.52 m2 09/30/2013 11:14:00 AM 108 mmHg 70 mmHg 82 bpm 16 rpm 96.6 F 114 lbs 66 in 18.40 kg/m2 1.5518 m 02/18/2013 9:32:00 AM 122 mmHg 70 mmHg 80 bpm 18 rpm 98.1 F 116 lbs 66 in 18.7227 kg/m 1.57 m2 11/18/2012 10:34:00 AM 114 mmHg 70 mmHg 100 bpm 18 rpm 98.5 F 117 lbs 64 in 20.08 kg/m2 1.548 m 08/12/2012 9:58:00 AM 122 mmHg 72 mmHg 88 bpm 16 rpm 97.8 F 119 lbs 64 in 20.4261 kg/m 1.56 m2 07/16/2012 10:20:00 AM 132 mmHg 82 mmHg 88 bpm 16 rpm 97.4 F 117 lbs 64 in 20.08 kg/m2 1.548 m 05/11/2012 9:38:00 AM 118 mmHg 80 mmHg 78 bpm 18 rpm 97.8 F 116 lbs 64 in 19.9112 kg/m 1.54 m2 02/07/2012 9:54:00 AM 125 mmHg 65 mmHg 117 bpm 18 rpm 96.6 F 117 lbs 64 in 20.08 kg/m2 1.548 m 95 % 11/19/2011 10:10:00 AM 122 mmHg 70 mmHg 98 bpm 18 rpm 97.7 F 112 lbs 64 in 19.2246 kg/m 1.51 m2 11/07/2011 3:39:00 PM 112 mmHg 68 mmHg 94 bpm 18 rpm 97.8 F 113 lbs 64 in 19.40 kg/m2 1.5213 m 10/08/2011 3:06:00 PM 98 mmHg 70 mmHg 94 bpm 18 rpm 97.6 F 109 lbs 64 in 18.7096 kg/m 1.49 m2 09/24/2011 1:20:00 PM 116 mmHg 64 mmHg 82 bpm 18 rpm 97.6 F 106 lbs 64 in 18.19 kg/m2 1.4735 m 06/13/2011 2:23:00 PM 118 mmHg 64 mmHg 68 bpm 18 rpm 97.3 F 112.5 lbs 64 in 19.3104 kg/m 1.52 m2 07/23/2010 2:33:00 PM 104 bpm [...] AM Flu Injection 3 Years And Above [facility]# [phone] 81-0384-15 RHC Reviewed 03/06/2017 12:00 AM INFLUENZA VAC 4 VALENT PRSRV FREE 3 YRS PLUS IM Reviewed 02/16/2013 12:00 AM ROUTINE VENIPUNCTURE Reviewed 02/16/2013 12:00 AM COMPLETE CBC W/AUTO DIFF WBC Reviewed 02/16/2013 12:00 AM COMPREHEN METABOLIC PANEL Reviewed 02/16/2013 12:00 AM LIPID PANEL Reviewed 02/18/2013 12:00 AM Flu Injection 3 Years And Above [facility]# [phone] [id number] C Reviewed 09/30/2013 12:00 AM [...] CVX Influenza 02/07/2012 sanofi pasteur PMC Fluzone [id number] Intramuscular Left Arm 02/07/2012 11/04/2011 141 X 02/07/2012 [employer]ck [employer] Inc[employer] MSD Pneumovax 23 1947aa Intramu scular Right Arm 02/07/2012 02/07/2009 33 Influenza 02/18/2013 sanofi pasteur PMC Fluzone [id number] Intramuscula r Left Deltoid 02/18/2013 11/27/2012 141 Pneumococcal 03/24/2015 Txpfd-Gzxzog-Jvmnfpf-Praxis WAL Prevnar 13 [id number] Intramuscular Right Deltoid 03/24/2015 07/01/2012 133 X 03/24/2015 Iighp-Riupyw-Dqkxyse-Praxis WAL Prevnar 13 [id number] Intramuscular Right Deltoid 03/24/2015 07/01/2012 133 Influenza 03/24/2015 sanofi pasteur PMC Fluzone Quadrivalent [id number] Intramuscular Left Deltoid 03/24/2015 12/09/2014 141 Influenza 02/27/2016 sanofi pasteur PMC Fluzone [id number] Intramuscula r Left Deltoid 02/27/2016 12/09/2014 141 Influenza 03/06/2017 [employer] SKB Flulaval Quadrivalent [id number] [id number] Intramuscular Left [...] 2017 10:50AM Neuropathy Jun 24 2017 2:30PM Payers Insurance Name Company Name Plan Name Plan Number Policy Number Dwight cy Group Number Start Date Medicare RHC Medicare RHC [id number] N/A [id number] Mo 2008 Medicare Part A Medicare Part A [id number] N/A Medicare Part A Medicare - Lab/Xray [id number] N/A Medicare Part B Medicare Of [place] [id number] Wednesday, December 03, 2008 History of Encounters Visit Date Visit Type Provider 06/24/2017 Office visit Yoni Buckner MD 06/11/2017 [...] visit Yoni Buckner MD 04/14/2012 Voided Clarita Pizarro A PRN 02/07/2012 Office visit Yoni Buckner MD 11/19/2011 Office visit Ewelina Perse MD 11/07/2011 Office visit Yoni Buckner MD [...] Rendon MD 06/13/2011 Office visit Yeimi Christian SUPERVISOR OF COMMUNICATIONS 07/23/2010 Office visit Federico Rodríguez MD 01/12/2009 Office visit Yoni Buckner MD
--- OUTSIDE RECORDS SUMMARY | 2019-11-24 14:05 | XMS REPORT ---
Author Author Dasia Buckner Organization [facility] Address [address] [place] [id number] Care Team Providers Care Gusset Stitcher Name Role Phone Yoni Buckner PCP Unavailable Yoni Buckner PreferredProvider Unavailable Allergies and Adverse Reactions Name Reaction Notes NO KNOWN DRUG ALLERGIES PENICILLINS Plan of Treatment Planned Activity Comments [...] 3 times per day for 30 days Name Start Date Expiration Date SIG [...] HC BMI BSA BMI Percentile O2 Sat(%) 03/06/2017 1:19:00 PM 124 mmHg 66 mmHg [...] [facility]# [phone] [id number] [facility] Reviewed 03/06/2017 12:00 AM INFLUENZA VAC 4 VALENT PRSRV FREE 3 YRS PLUS IM Reviewed 02/16/2013 12:00 AM ROUTINE VENIPUNCTURE Reviewed 02/16/2013 12:00 AM COMPLETE CBC W/AUTO DIFF WBC Reviewed 02/16/2013 12:00 AM COMPREHEN METABOLIC PANEL Reviewed 02/16/2013 12:00 AM LIPID PANEL Reviewed 02/18/2013 12:00 AM Flu Injection [address] [facility]# [phone] [id number] C Reviewed 09/30/2013 12:00 AM [...] CVX Influenza 02/07/2012 sanofi pasteur PMC Fluzone [id number] Intramuscular Left Arm 02/07/2012 11/04/2011 141 X 02/07/2012 [employer] Inc[employer] MSD Pneumovax 23 1947aa Intramu scular Right Arm 02/07/2012 02/07/2009 33 Influenza 02/18/2013 [facility] Fluzone [id number] Intramuscula r Left Deltoid 02/18/2013 11/27/2012 141 Pneumococcal 03/24/2015 Wnpvp-Aslpvo-Ltljunz-Praxis WAL Prevnar 13 [id number] Intramuscular Right Deltoid 03/24/2015 07/01/2012 133 X 03/24/2015 Qxgny-Hqimpr-Fwijgel-Praxis WAL Prevnar 13 [id number] Intramuscular Right Deltoid 03/24/2015 07/01/2012 133 Influenza 03/24/2015 [facility] Fluzone Quadrivalent [id number] Intramuscular Left Deltoid 03/24/2015 12/09/2014 141 Influenza 02/27/2016 [facility] Fluzone [id number] Intramuscula r Left Deltoid 02/27/2016 12/09/2014 141 Influenza 03/06/2017 [employer] [facility] Flulaval Quadrivalent [id number] [id number] Intramuscular Left Deltoid [...] 2016 1:18PM Neuropathy Mar 06 2017 1:22PM Payers Insurance Name Company Name Plan Name Plan Number Policy Number Dwight cy Group Number Start Date Medicare RHC Medicare RHC [id number] N/A [facility] [id number] Mo 2008 Medicare Part A Medicare Part A [id number] N/A Medicare Part A Medicare - Lab/Xray [id number] N/A Medicare Part B Medicare Of [place] [id number] Wednesday, December 03, 2008 History of Encounters Visit Date Visit Type Provider 03/06/2017 Office visit Yoni Buckner MD 10/10/2016 [...] 09/24/2011 Office visit Yoni Buckner MD 09/24/2011 [facility] Ewelina Peres MD 09/19/2011 [facility] Ewelina Peres MD 09/17/2011 [facility] Ewelina Peres MD 09/16/2011 [facility] Ewelina Peres MD 09/12/2011 [facility] Ewelina Peres MD 09/10/2011 [facility] Ewelina Peres MD 09/01/2011 [facility] Justine Linares MD 08/31/2011 [facility] Lamar Rendon MD 08/31/2011 [facility] Justine Linares MD 08/29/2011 [facility] Dominique Wright MD 08/28/2011 [facility] Dominique Wright MD 08/28/2011 [facility] Lamar Rendon MD 06/13/2011 Office visit Yeimi Christian PULMONARY PHYSICIAN 07/23/2010 Office visit Federico Rodríguez MD 01/12/2009 Office visit Yoni Buckner MD
--- OUTSIDE RECORDS SUMMARY | 2019-11-24 14:05 | XMS REPORT ---
Author Author Dasia Buckner [facility] Address [address] [place] [phone] Care Team Providers Care Optical Sales Associate Name Role Phone Yoni Buckner PCP Unavailable Allergies and Adverse Reactions Name Reaction Notes NO KNOWN DRUG ALLERGIES Plan of Treatment Planned Activity Comments Planned Date Planned Time Plan/Goal COMPLETE CBC W/AUTO DIFF WBC 09/27/2014 12:00 AM COMPREHEN METABOLIC PANEL 09/27/2014 12:00 AM ASSAY BLD/SERUM CHOLESTEROL 09/27/2014 12:00 AM Medications Active Name Start Date Estimated Completion Date SIG Co mments gabapentin oral tablet 800 mg 05/06/2013 TA KE ONE TABLET BY MOUTH THREE TIMES DAILY pravastatin oral tablet 40 mg 06/28/2013 TAKE ONE TA BLET BY MOUTH EVERY DAY pravastatin oral tablet 40 mg 04/25/2014 TAKE ONE TA BLET BY MOUTH EVERY DAY Lyrica oral capsule 200 mg 05/03/2014 TAKE ONE CAPSULE BY MOUTH THREE TIMES DAILY Lyrica oral capsule 200 mg 05/30/2014 TAKE ONE CAPSULE BY MOUTH THREE TIMES DAILY mirtazapine oral tablet 30 mg 06/29/2014 TA KE ONE TABLET BY MOUTH EVERY DAY BEFORE BEDTIME Name Start Date Expiration Date SIG Comments Cipro Oral Tablet 500 mg 07/23/2010 07/30/2010 take 1 tablet (500 mg) by oral route every 12 hours for 7 days Prednisone Oral Tablet 50 mg 07/23/2010 08/02/2010 One tablet every day for 10 days. aspirin Oral tablet,delayed release (DR/EC) 325 mg 11/07/2011 11/06/2012 take 1 tablet (325 mg) by oral route daily mirtazapine Oral tablet 30 mg 07/16/2012 02/11/2013 ta ke 1 tablet (30 mg) by oral route once daily before bedtime for 30 days gabapentin Oral tablet 800 mg 11/18/2012 05/17/2013 ta ke 1 tablet (800 mg) by oral route 3 times per day for 30 days mirtazapine Oral tablet 30 mg 06/16/2013 10/14/2013 TA KE ONE TABLET BY MOUTH EVERY DAY BEFORE BEDTIME Lyrica oral capsule 200 mg 03/30/2014 07/28/2014 take 1 capsule (200 mg) by oral route 2 times per day for 30 days Discontinued Name Start Date Discontinued Date SIG Comments pravastatin Oral Tablet 40 mg 08/15/2011 09/24/2011 ta ke 1 tablet by oral route QD for 30 days fexofenadine Oral Tablet 60 mg 08/22/2011 09/24/2011 t ana maria 1 tablet (60 mg) by oral route 2 times per day as needed prednisone Oral Tablet 2.5 mg 11/07/2011 03/30/2014 ta ke 1 tablet (2.5 mg) by oral route once daily simvastatin Oral Tablet 20 mg 11/07/2011 03/30/2014 ta ke 1 tablet (20 mg) by oral route once daily in the evening gabapentin oral tablet 800 mg 08/09/2013 03/30/2014 TA KE ONE TABLET BY MOUTH THREE TIMES DAILY Problem List Description Status Onset Vasculitis Active 10/09/2011 Hyperlipidemia Active / Cerebrovascular Accident (CVA) Active Vital Signs Date Time BP-Sys(mm[Hg] BP-Arlen(mm[Hg]) HR(bpm) RR(rpm) Temp WT HT HC BMI BSA BMI Percentile O2 Sat(%) 09/27/2014 9:58:00 AM 122 mmHg 80 mmHg [...] Social History Name Description Comments Cigarette smoking Tobacco Never smoker History of Procedures Date Ordered Description Order Status 06/13/2011 12:00 AM COMPLETE CBC W/AUTO DIFF [...] 02/07/2012 12:00 AM COMPREHEN METABOLIC PANEL Reviewed 02/16/2013 12:00 AM COMPLETE CBC W/AUTO DIFF WBC Reviewed 02/16/2013 12:00 AM COMPREHEN METABOLIC PANEL Reviewed 02/16/2013 12:00 AM LIPID PANEL Reviewed 09/30/2013 12:00 AM COMPLETE CBC W/AUTO DIFF WBC Reviewed 09/30/2013 12:00 AM COMPREHEN METABOLIC PANEL Reviewed 09/30/2013 12:00 AM LIPID PANEL Reviewed 09/30/2013 12:00 AM ASSAY THYROID STIM HORMONE Reviewed 09/30/2013 12:00 AM VITAMIN B-12 Reviewed Results Summary Data and Description Results [...] BILI 0.60 mg/dLCALCIUM 9.60 mg/dLeGFR >60 mL/min/1.73 [id number] 114.0 mg/dLCHOLESTEROL 326.0 mg/dLHDL 47.0 mg/dLLDL (CALC) [...] BILI 0.60 mg/dLCALCIUM 9.50 mg/dLeGFR >60 mL/min/1.73 [id number] 113.0 mg/dLCHOLESTEROL 225.0 mg/dLHDL 50.0 mg/dLLDL (CALC) [...] 219.0 mg/dLHDL 51.0 mg/dLLDL (CALC) 147.0 mg/dL History Of Immunizations Name Date Admin Mf Name Mf Code Trade Name Lot# Route Inj Vis Given Vis Pub CVX Influenza 02/07/2012 sanofi pasteur PMC Fluzone [id number] Intramuscular Left Arm 02/07/2012 11/04/2011 141 Pneumococcal 02/07/2012 [employer]ck [employer] Co[employer] Inc[employer] MSD Pneumovax 23 1947aa In tramuscular Right Arm 02/07/2012 02/07/2009 33 Influenza 02/18/2013 sanofi pasteur PMC Fluzone [id number] Intramuscula r Left Deltoid 02/18/2013 11/27/2012 141 History of Past Illness Name Date [...] Cerebrovascular Accident (CVA) Sep 27 2014 10:02AM Payers Insurance Name Company Name Plan Name Plan Number Policy Number Dwight cy Group Number Start Date Medicare Part A Medicare Part A [id number] N/A Bcbs [facility] [id number] Mo 2008 Medicare Part B Medicare Of [place] [id number] Wednesday, 2008 History of Encounters Visit Date Visit Type Provider 09/27/2014 Office visit Yoni Buckner MD 03/30/2014 [...] 09/24/2011 Office visit Yoni Buckner MD 09/24/2011 [facility] Ewelina Peres MD 09/19/2011 [facility] Ewelina Peres MD 09/17/2011 [facility] Ewelina Peres MD 09/16/2011 [facility] Ewelina Peres MD 09/12/2011 [facility] Ewelina Peres MD 09/10/2011 [facility] Ewelina Peres MD 09/01/2011 [facility] Justine Linares MD 08/31/2011 [facility] Justine Linares MD 08/31/2011 [facility] Lamar Rendon MD 08/29/2011 [facility] Dominique Wright MD 08/28/2011 [facility] Lamar Rendon MD 08/28/2011 [facility] Dominique Wright MD 06/13/2011 Office visit Yeimi Christian AREA FIELD PERSON 07/23/2010 Office visit Federico Rodríguez MD 01/12/2009 Office visit Yoni Buckner MD
--- OUTSIDE RECORDS SUMMARY | 2019-11-24 14:06 | XMS REPORT ---
Author Author Dasia Buckner [facility] Address [address] [place] [phone] Care Team Providers Care Speech Clinician Name Role Phone Yoni Buckner PCP Yoni [...] HC BMI BSA BMI Percentile O2 Sat(%) 04/21/2017 9:00:00 AM 132 mmHg 84 mmHg [...] [facility]# [phone] [id number] RHC Reviewed 03/06/2017 [...] [facility]# [phone] [id number] RHC Reviewed 09/30/2013 12:00 AM [...] CVX Influenza 02/07/2012 sanofi pasteur PMC Fluzone [id number] Intramuscular Left Arm 02/07/2012 11/04/2011 141 X 02/07/2012 [employer] MSD Pneumovax 23 1947aa Intramu scular Right Arm 02/07/2012 02/07/2009 33 Influenza 02/18/2013 [facility] PMC Fluzone [id number] Intramuscula r Left Deltoid 02/18/2013 11/27/2012 141 Pneumococcal 03/24/2015 Flbbr-Cmsyqg-Kwzbvpi-Praxis WAL Prevnar 13 [id number] Intramuscular Right Deltoid 03/24/2015 07/01/2012 133 X 03/24/2015 Jiaqs-Xwjayu-Liozgih-Praxis WAL Prevnar 13 [id number] Intramuscular Right Deltoid 03/24/2015 07/01/2012 133 Influenza 03/24/2015 [facility] Fluzone Quadrivalent [id number] Intramuscular Left Deltoid 03/24/2015 12/09/2014 141 Influenza 02/27/2016 [facility] [facility] PMC Fluzone [id number] Intramuscula r Left Deltoid 02/27/2016 12/09/2014 141 Influenza 03/06/2017 [employer] Flulaval Quadrivalent [id number] [id number] Intramuscular Left [...] 9:49AM Skin abscess Apr 21 2017 9:03AM Payers Insurance Name Company Name Plan Name Plan Number Policy Number Dwight cy Group Number Start Date Medicare RHC Medicare RHC [id number] N/A BCBS [facility] [id number] Mo 2008 Medicare Part A Medicare Part A [id number] N/A Medicare Part A Medicare - Lab/Xray [id number] N/A Medicare Part B Medicare Of [place] [id number] Wednesday, December 03, 2008 History of Encounters Visit Date Visit Type Provider 04/21/2017 Office visit Yoni Buckner MD 04/08/2017 [...] MD 09/24/2011 Hospital Ewelina Peres MD 09/19/2011 Hospital Ewelina Peres MD 09/17/2011 [facility] Ewelina Peres MD 09/16/2011 [facility] Ewelina Peres MD 09/12/2011 [facility] Ewelina Peres MD 09/10/2011 [facility] Ewelina Peres MD 09/01/2011 [facility] Justine Linares MD 08/31/2011 [facility] Lamar Rendon MD 08/31/2011 [facility] Justine Linares MD 08/29/2011 [facility] Dominique Wright MD 08/28/2011 [facility] Dominique Wright MD 08/28/2011 [facility] Lamar Rendon MD 06/13/2011 Office visit Yeimi Christian APRN 07/23/2010 Office visit Federico Rodríguez MD 01/12/2009 Office visit Yoni Buckner MD
--- OUTSIDE RECORDS SUMMARY | 2019-11-24 14:06 | XMS REPORT ---
Author Author Dasia Buckner [facility] Address [address] [place] [phone] Care Team Providers Care Machine Ii Engraver Name Role Phone Yoni Buckner PCP Yoni [...] HC BMI BSA BMI Percentile O2 Sat(%) 04/08/2017 9:47:00 AM 126 mmHg 74 mmHg [...] AM Flu Injection 3 Years And Above [facility]# [phone] [id number] [facility] Reviewed 03/06/2017 12:00 AM INFLUENZA VAC 4 VALENT PRSRV FREE 3 YRS PLUS IM Reviewed 02/16/2013 12:00 AM ROUTINE VENIPUNCTURE Reviewed 02/16/2013 12:00 AM COMPLETE CBC W/AUTO DIFF WBC Reviewed 02/16/2013 12:00 AM COMPREHEN METABOLIC PANEL Reviewed 02/16/2013 12:00 AM LIPID PANEL Reviewed 02/18/2013 12:00 AM Flu Injection 3 Years And Above [facility]# [phone] [id number] C Reviewed 09/30/2013 [...] CVX Influenza 02/07/2012 sanofi pasteur PMC Fluzone [id number] Intramuscular Left Arm 02/07/2012 11/04/2011 141 X 02/07/2012 [employer] MSD Pneumovax 23 1947aa Intramu scular Right Arm 02/07/2012 02/07/2009 33 Influenza 02/18/2013 sanofi pasteur PMC Fluzone [id number] Intramuscula r Left Deltoid 02/18/2013 11/27/2012 141 Pneumococcal 03/24/2015 Icmdx-Ozmtom-Rylyvef-Praxis WAL Prevnar 13 [id number] Intramuscular Right Deltoid 03/24/2015 07/01/2012 133 X 03/24/2015 Quklz-Pqswft-Qjlqbor-Praxis WAL Prevnar 13 [id number] Intramuscular Right Deltoid 03/24/2015 07/01/2012 133 Influenza 03/24/2015 sanofi pasteur PMC Fluzone Quadrivalent [id number] [id number] Intramuscular Left Deltoid 03/24/2015 12/09/2014 141 Influenza 02/27/2016 sanofi pasteur PMC Fluzone [id number] Intramuscula r Left Deltoid 02/27/2016 12/09/2014 141 [...] 2017 9:49AM Neuropathy Apr 08 2017 9:49AM Payers Insurance Name Company Name Plan Name Plan Number Policy Number Dwight cy Group Number Start Date Medicare [facility] Medicare [facility] [id number] N/[id number] Mo nday, 2008 Medicare Part A Medicare Part A [id number] N/A Medicare Part A Medicare - Lab/Xray [id number] N/A Medicare Part B Medicare Of [place] [id number] Wednesday, December 03, 2008 History of Encounters Visit Date Visit Type Provider 04/08/2017 Office visit Yoni Buckner MD 03/06/2017 [...] MD 09/19/2011 [facility] 09/12[facility]2011 [facility] E[facility] 09/10/2011 [facility] E[facility] MD 09/01/2011 [facility] Justine Linares MD 08/31/2011 [facility] Lamar Rendon MD 08/31/2011 [facility] Justine Linares MD 08/29/2011 [facility] Dominique Wright MD 08/28/2011 [facility] Dominique Wright MD 08/28/2011 [facility] Lamar Rendon MD 06/13/2011 Office visit Yeimi Christian TAX CREDIT LEASING CONSULTANT 07/23/2010 Office visit Federico Rodríguez MD 01/12/2009 Office visit Yoni Buckner MD
--- OUTSIDE RECORDS SUMMARY | 2019-11-24 14:06 | XMS REPORT ---
Author Author Dasia Almazan [facility] Address [address] [place] [phone] Care Team Providers Care Software Asset Manager Name Role Phone Brayan Almazan PCP Yoni [...] AM Flu Injection 3 Years And Above [facility]# [id number] [facility] Reviewed 03/06/2017 12:00 AM INFLUENZA VAC 4 VALENT PRSRV FREE 3 YRS PLUS IM Reviewed 02/16/2013 12:00 AM ROUTINE VENIPUNCTURE Reviewed 02/16/2013 12:00 AM COMPLETE CBC W/AUTO DIFF WBC Reviewed 02/16/2013 12:00 AM COMPREHEN METABOLIC PANEL Reviewed 02/16/2013 12:00 AM LIPID PANEL Reviewed 02/18/2013 12:00 AM Flu Injection 3 Years And Above [facility]# [id number] 81-0384-15 [facility] Reviewed 09/30/2013 12:00 AM [...] Vis Given Vis Pub CVX Influenza 02/07/2012 [facility] PMC Fluzone [id number] Intramuscular Left Arm 02/07/2012 11/04/2011 141 X 02/07/2012 [employer] MSD Pneumovax 23 1947aa Intramu scular Right Arm 02/07/2012 02/07/2009 33 Influenza 02/18/2013 [facility] [facility] Fluzone [id number] Intramuscula r Left Deltoid 02/18/2013 11/27/2012 141 Pneumococcal 03/24/2015 Nazaf-Afihfc-Edbwpci-Praxis WAL Prevnar 13 [id number] Intramuscular Right Deltoid 03/24/2015 07/01/2012 133 X 03/24/2015 Kzbur-Udkwdo-Ihycrvf-Praxis WAL Prevnar 13 [id number] Intramuscular Right Deltoid 03/24/2015 07/01/2012 133 Influenza 03/24/2015 [facility] [facility] Fluzone Quadrivalent [id number] Intramuscular Left Deltoid 03/24/2015 12/09/2014 141 Influenza 02/27/2016 [facility] [facility] Fluzone [id number] Intramuscula r Left Deltoid 02/27/2016 12/09/2014 141 Influenza 03/06/2017 [facility] Flulaval Quadrivalent [id number] Intramuscular Left Deltoid [...] 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 10:06AM Payers Insurance Name Company Name Plan Name Plan Number Policy Number [place]ight cy Group Number Start Date Medicare RHC Medicare RHC [id number] N/A BCBS [facility]cbs [facility] [id number] Mo 2008 Medicare Part A Medicare Part A [id number] N/A Medicare Part A Medicare - Lab/Xray [id number] N/A Medicare Part B Medicare Of [place] [id number] Wednesday, December 03, 2008 History of Encounters Visit Date Visit Type Provider 04/29/2017 Office visit Brayan Almazan MD 04/21/2017 [...] MD 09/19/2011 Hospital Ewelina Peres MD 09/17/2011 Hospital Ewelina Peres MD 09/16/2011 Hospital Ewelina Peres MD 09/12/2011 [facility] Ewelina Peres MD 09/10/2011 [facility] Ewelina Peres MD 09/01/2011 [facility] Justine Linares MD 08/31/2011 [facility] Lamar Rendon MD 08/31/2011 [facility] Justine Linares MD 08/29/2011 [facility] Dominique Wright MD 08/28/2011 [facility] Dominique Wright MD 08/28/2011 [facility] Lamar Rendon MD 06/13/2011 Office visit Yeimi Christian APRN 07/23/2010 Office visit Federico Rodríguez MD 01/12/2009 Office visit Yoni Buckner MD
--- OUTSIDE RECORDS SUMMARY | 2019-11-24 14:07 | XMS REPORT ---
Author Author Dasia Almazan [facility] Physicians oup Address [address] [place] [id number] Care Team Providers Care Truck Driver Helper Name Role Phone Brayan Almazan PCP Yoni [...] HC BMI BSA BMI Percentile O2 Sat(%) 06/02/2017 2:54:00 PM 130 mmHg 85 mmHg [...] AM Flu Injection 3 Years And Above [facility]# 492 81-0384-15 RHC Reviewed 03/06/2017 12:00 AM INFLUENZA VAC 4 VALENT PRSRV FREE 3 YRS PLUS IM Reviewed 02/16/2013 12:00 AM ROUTINE VENIPUNCTURE Reviewed 02/16/2013 12:00 AM COMPLETE CBC W/AUTO DIFF WBC Reviewed 02/16/2013 12:00 AM COMPREHEN METABOLIC PANEL Reviewed 02/16/2013 12:00 AM LIPID PANEL Reviewed 02/18/2013 12:00 AM Flu Injection 3 Years And Above [facility]# 492 81-0384-15 C Reviewed 09/30/2013 12:00 [...] CVX Influenza 02/07/2012 sanofi pasteur PMC Fluzone [id number] Intramuscular Left Arm 02/07/2012 11/04/2011 141 X 02/07/2012 Merck & Co., Inc. MSD Pneumovax 23 1947aa Intramu scular Right Arm 02/07/2012 02/07/2009 33 Influenza 02/18/2013 [facility] PMC Fluzone [id number] Intramuscula r Left Deltoid 02/18/2013 11/27/2012 141 Pneumococcal 03/24/2015 Kmpfd-Jtpxho-Zkspjyv-Praxis WAL Prevnar 13 [id number] Intramuscular Right Deltoid 03/24/2015 07/01/2012 133 X 03/24/2015 Bgjlw-Klkeyq-Gadnlxy-Praxis WAL Prevnar 13 [id number] Intramuscular Right Deltoid 03/24/2015 07/01/2012 133 Influenza 03/24/2015 [facility] Fluzone Quadrivalent [id number] [id number] Intramuscular Left Deltoid 03/24/2015 12/09/2014 141 Influenza 02/27/2016 [facility] PMC Fluzone [id number] Intramuscula r Left Deltoid 02/27/2016 12/09/2014 141 Influenza 03/06/2017 [employer] Flulaval Quadrivalent [id number] [id number] Intramuscular Left [...] reaction, initial encounter Jun 03 2017 7:59AM Payers Insurance Name Company Name Plan Name Plan Number Policy Number Dwight cy Group Number Start Date Medicare RHC Medicare RHC [id number] N/A BCBS Bcbs [facility] [id number] Mo 2008 Medicare Part A Medicare Part A [id number] N/A Medicare Part A Medicare - Lab/Xray [id number] N/A Medicare Part B Medicare Of [place] [id number] Wednesday, December 03, 2008 History of Encounters Visit Date Visit Type Provider 06/02/2017 Office visit Brayan Almazan MD 04/29/2017 [...] 09/24/2011 Office visit Yoni Buckner MD 09/24/2011 [facility] Ewelina Peres MD 09/19/2011 [facility] Ewelina Peres MD 09/17/2011 [facility] Ewelina Peres MD 09/16/2011 [facility] Ewelina Peres MD 09/12/2011 [facility] Ewelina Peres MD 09/10/2011 [facility] Ewelina Peres MD 09/01/2011 [facility] Justine Linares MD 08/31/2011 [facility] Lamar Rendon MD 08/31/2011 [facility] Justine Linares MD 08/29/2011 [facility] Dominique Wright MD 08/28/2011 [facility] Dominique Wright MD 08/28/2011 [facility] Lamar Rendon MD 06/13/2011 Office visit Yeimi Christian APRN 07/23/2010 Office visit Federico Rodríguez MD 01/12/2009 Office visit Yoni Buckner MD
--- OUTSIDE RECORDS SUMMARY | 2019-11-24 14:07 | XMS REPORT ---
Author Author Dasia Bucknre Organization [facility] Physicians oup Address [address] [place] [id number] Care Team Providers Care Home Maker Name Role Phone Yoni Buckner PCP Unavailable [...] oral route every 6 hours as needed Ultram 50 mg oral tablet 02/27/2016 take 1 tablet (50 mg) by oral route every 6 hours as needed Lyrica 200 mg oral capsule 02/27/2016 07/26/2016 take 1 capsule (200 mg) by oral [...] HC BMI BSA BMI Percentile O2 Sat(%) 02/27/2016 10:12:00 AM 134 mmHg 82 mmHg [...] Returned 06/13/2011 12:00 AM LIPID PANEL Returned 02/27/2016 12:00 AM INFLUENZA VACCINE QUADRIVALENT 3 [...] AM Flu Injection 3 Years And Above [facility]# 492 81-0384-15 RHC Reviewed 02/16/2013 12:00 AM COMPLETE CBC W/AUTO DIFF WBC Reviewed 02/16/2013 12:00 AM COMPREHEN METABOLIC PANEL Reviewed 02/16/2013 12:00 AM LIPID PANEL Reviewed 02/18/2013 12:00 AM Flu Injection 3 Years And Above [facility]# 492 81-0384-15 C Reviewed [...] g /dLHCT 37.90 %MCV 89.0 fLMCH 30.30 pgHC 34.0 g/dLRDW SD 49 RDW CV 15.0 [...] 4.98 HGB 15.10 g/dLHCT 43.80 %MCV 88.0 [facility] 30.30 [facility] g/dLRDW SD 45 RDW CV 14.20 [...] CVX Influenza 02/07/2012 sanofi pasteur PMC Fluzone [id number] Intramuscular Left Arm 02/07/2012 11/04/2011 141 X 02/07/2012 Merck & Co., Inc. MSD Pneumovax 23 1947aa Intramu scular Right Arm 02/07/2012 02/07/2009 33 Influenza 02/18/2013 sanofi pasteur PMC Fluzone [id number] Intramuscula r Left Deltoid 02/18/2013 11/27/2012 141 Pneumococcal 03/24/2015 Irjwg-Ifwgqj-Lbuomft-Praxis WAL Prevnar 13 [id number] Intramuscular Right Deltoid 03/24/2015 07/01/2012 133 X 03/24/2015 Qjdfw-Efvljd-Tpmalsj-Praxis WAL Prevnar 13 [id number] Intramuscular Right Deltoid 03/24/2015 07/01/2012 133 Influenza 03/24/2015 sanofi pasteur PMC Fluzone Quadrivalent [id number] [id number] Intramuscular Left Deltoid 03/24/2015 12/09/2014 141 Influenza 02/27/2016 sanofi pasteur PMC Fluzone [id number] Intramuscula r Left Deltoid 02/27/2016 12/09/2014 141 [...] 2015 10:07AM Neuropathy Feb 27 2016 10:17AM Payers Insurance Name Company Name Plan Name Plan Number Policy Number Dwight cy Group Number Start Date Medicare Part A Medicare RHC [id number] N/A [facility] [id number] Mo 2008 Medicare Part A Medicare Part A [id number] N/A Medicare Part A Medicare - Lab/Xray [id number] N/A Medicare Part B Medicare [place] [id number] Wednesday, December 03, 2008 History of Encounters Visit Date Visit Type Provider 02/27/2016 Office visit Yoni Buckner MD 10/30/2015 [...] Yoni Buckner MD 08/12/2012 Office visit Clarita Madodx PRN 07/16/2012 Office visit Ewelina Peres MD 05/11/2012 Office visit Yoni Buckner MD 04/14/2012 Voided Clarita Maddox PRN 02/07/2012 Office visit Yoni Buckner MD 11/19/2011 Office visit Ewelina Peres MD 11/07/2011 Office visit Yoni Buckner MD 10/08/2011 Office visit Yoni Buckner MD 09/24/2011 Office visit Yoni Buckner MD 09/24/2011 [facility] Ewelina Peres MD 09/19/2011 [place] [...] Rendon MD 06/13/2011 Office visit Yeimi Christian TOOL DESIGN DRAFTSPERSON 07/23/2010 Office visit Federico Rodríguez MD 01/12/2009 Office visit Yoni Buckner MD
--- OUTSIDE RECORDS SUMMARY | 2019-11-24 14:07 | XMS REPORT ---
Author Author Dasia Buckner [facility] Physicians oup Address [address] [place] [phone] Care Team Providers Care Esters And Emulsifiers Supervisor Name Role Phone Yoni Buckner PCP Unavailable Allergies and Adverse Reactions Name Reaction Notes NO KNOWN DRUG ALLERGIES Plan of Treatment Planned Activity Comments Planned Date Planned Time Plan/Goal FLU VACC 4 MARISA 3 YRS PLUS IM 03/24/2015 12:00 AM PNEUMOCOCCAL VACC 13 MARISA IM 03/24/2015 12:00 AM FLU VAC NO PRSV 4 MARISA 3 [...] BEFORE BEDTIME Lyrica 200 mg oral capsule 11/23/2014 05/22/2015 take 1 capsule (200 mg) by oral route 3 times per day for 30 days pravastatin 40 mg oral tablet 03/23/2015 TAKE ONE TA BLET BY MOUTH ONCE DAILY Ultram 50 mg oral tablet 03/24/2015 take 1 tablet (50 mg) by oral [...] HC BMI BSA BMI Percentile O2 Sat(%) 03/24/2015 10:05:00 AM 118 mmHg 82 mmHg [...] AM Flu Injection 3 Years And Above [facility]# 492 81-0384-15 [facility] Reviewed 02/16/2013 12:00 AM COMPLETE CBC W/AUTO DIFF WBC Reviewed 02/16/2013 12:00 AM COMPREHEN METABOLIC PANEL Reviewed 02/16/2013 12:00 AM LIPID PANEL Reviewed 02/18/2013 12:00 AM Flu Injection 3 Years And Above [facility]# 492 81-0384-15 [facility] Reviewed 09/30/2013 12:00 AM COMPLETE CBC [...] BILI 0.60 mg/dLCALCIUM 9.60 mg/dLeGFR >60 mL/min/1.73 [id number] 114.0 mg/dLCHOLESTEROL 326.0 mg/dLHDL 47.0 mg/dLLDL (CALC) [...] BILI 0.60 mg/dLCALCIUM 9.50 mg/dLeGFR >60 mL/min/1.73 [id number] 113.0 mg/dLCHOLESTEROL 225.0 mg/dLHDL 50.0 mg/dLLDL (CALC) [...] BILI 0.40 mg/dLCALCIUM 9.90 mg/dLeGFR >60 mL/min/1.73 [id number] 260.0 mg/dL History Of Immunizations Name Date Admin Mfg Name Mfg Code Trade Name Lot# Route Inj Vis Given Vis Pub CVX Influenza 02/07/2012 sanofi pasteur PMC Fluzone [id number] Intramuscular Left Arm 02/07/2012 11/04/2011 141 Pneumococcal 02/07/2012 Merck & Co., Inc. MSD Pneumovax 23 1947aa In tramuscular Right Arm 02/07/2012 02/07/2009 33 Influenza 02/18/2013 sanofi pasteur PMC Fluzone [id number] Intramuscula r Left Deltoid 02/18/2013 11/27/2012 141 [...] Low Back Pain Mar 24 2015 10:12AM Payers Insurance Name Company Name Plan Name Plan Number Policy Number Dwight cy Group Number Start Date Medicare Part A Medicare Part A [id number] N/A [facility] [id number] Mo nday, 2008 Medicare Part B Medicare [place] [id number] Wednesday, 2008 History of Encounters Visit Date Visit Type Provider 03/24/2015 Office visit Yoni Buckner MD 09/27/2014 [...] 09/24/2011 Office visit Yoni Buckner MD 09/24/2011 [facility] Ewelina Peres MD 09/19/2011 [facility] Ewelina Peres MD 09/17/2011 [facility] Ewelina Peres MD 09/16/2011 [facility] Ewelina Peres MD 09/12/2011 [facility] Ewelina Peres MD 09/10/2011 [facility] Ewelina Peres MD 09/01/2011 [facility] Justine Linares MD 08/31/2011 [facility] Lamar Rendon MD 08/31/2011 [facility] Justine Linares MD 08/29/2011 [facility] Dominique Wright MD 08/28/2011 [facility] Lamar Rendon MD 06/13/2011 Office visit Yeimi Christian TELEPHONE SURVEYOR 07/23/2010 Office visit Federico Rodríguez MD 01/12/2009 Office visit Yoni Buckner MD
--- OUTSIDE RECORDS SUMMARY | 2019-11-24 14:08 | XMS REPORT ---
Author Author Dasia Almazan [facility] Physicians oup Address [address] [place] [phone] Care Team Providers Care Fence Erector Name Role Phone Brayan Almazan PCP Yoni [...] HC BMI BSA BMI Percentile O2 Sat(%) 06/04/2017 11:14:00 AM 110 mmHg 80 mmHg [...] F 142.125 lbs 64 in 24.3955 kg/m 1.71 m2 95 % 10/10/2016 1:17:00 PM 134 mmHg 68 mmHg 94 bpm 18 rpm 97.8 F 144.25 lbs 64 in 24.76 kg/m2 1.7189 m 97 % 07/04/2016 1:36:00 PM 126 mmHg 64 mmHg 97 bpm 18 rpm 97.2 F 143 lbs 64 in 24.5456 kg/m 1.71 m2 96 % 02/27/2016 10:12:00 AM 134 mmHg 82 mmHg 84 bpm 16 rpm 96.7 F 144 lbs 64 in 24.72 kg/m2 1.7174 m 86 % 10/30/2015 10:02:00 AM 128 mmHg 80 mmHg 88 bpm 16 rpm 96.8 F 151 lbs 64 in 25.9188 kg/m 1.76 m2 94 % 10/10/2015 2:13:00 PM 130 mmHg 86 mmHg 88 bpm 96.9 F 152 lbs 64 in 26.09 kg/m2 1.7645 m 96 % 06/26/2015 9:13:00 AM 132 mmHg 74 mmHg 92 bpm 18 rpm 97.8 F 152 lbs 64 in 26.0905 kg/m 1.76 m2 95 % 03/24/2015 10:05:00 AM 118 mmHg 82 mmHg 88 bpm 18 rpm 96.6 F 148 lbs 64 in 25.40 kg/m2 1.7411 m 95 % 09/27/2014 9:58:00 AM [...] Flu Injection 3 Years And Above [facility]# 492 81-0384-15 RHC Reviewed 03/06/2017 12:00 AM INFLUENZA VAC 4 VALENT PRSRV FREE 3 YRS PLUS IM Reviewed 02/16/2013 12:00 AM ROUTINE VENIPUNCTURE Reviewed 02/16/2013 12:00 AM COMPLETE CBC W/AUTO DIFF WBC Reviewed 02/16/2013 12:00 AM COMPREHEN METABOLIC PANEL Reviewed 02/16/2013 12:00 AM LIPID PANEL Reviewed 02/18/2013 12:00 AM Flu Injection 3 Years And Above [facility]# 492 81-0384-15 RHC Reviewed 09/30/2013 12:00 [...] CVX Influenza 02/07/2012 sanofi pasteur PMC Fluzone [id number] Intramuscular Left Arm 02/07/2012 11/04/2011 141 X 02/07/2012 Merck & Co., Inc. MSD Pneumovax 23 1947aa Intramu scular Right Arm 02/07/2012 02/07/2009 33 Influenza 02/18/2013 [employer]BuzzElement pasteur PMC Fluzone [id number] Intramuscula r Left Deltoid 02/18/2013 11/27/2012 141 Pneumococcal 03/24/2015 Xgrho-Yilmkx-Jgdltjt-Praxis WAL Prevnar 13 [id number] Intramuscular Right Deltoid 03/24/2015 07/01/2012 133 X 03/24/2015 Klzjf-Qmwvra-Cbnzmyh-Praxis WAL Prevnar 13 [id number] Intramuscular Right Deltoid 03/24/2015 07/01/2012 133 Influenza 03/24/2015 sanBuzzElement pasteur PMC Fluzone Quadrivalent UI4 [id number] Intramuscular Left Deltoid 03/24/2015 12/09/2014 141 Influenza 02/27/2016 sanBuzzElement pasteur PMC Fluzone [id number] Intramuscula r Left Deltoid 02/27/2016 12/09/2014 141 Influenza 03/06/2017 [employer] Flulaval Quadrivalent [id number] [id number] Intramuscular Left Deltoid [...] 7:59AM Postoperative Follow-up Jun 04 2017 11:15AM Payers Insurance Name Company Name Plan Name Plan Number Policy Number Dwight cy Group Number Start Date Medicare RHC Medicare RHC [id number] N/A BCBS Bcbs [facility] [id number] Mo 2008 Medicare Part A Medicare Part A [id number] N/A Medicare Part A Medicare - Lab/Xray [id number] N/A Medicare Part B Medicare Of [place] [id number] Wednesday, December 03, 2008 History of Encounters Visit Date Visit Type Provider 06/04/2017 Office visit Brayan Almazan MD 06/02/2017 [...] Yoni Buckner MD 08/12/2012 Office visit Clarita SANTOSN 07/16/2012 Office visit Ewelina Peres MD 05/11/2012 [...] Rendon MD 06/13/2011 Office visit Yeimi Christian NANOSCIENCE TECHNICIAN 07/23/2010 Office visit Federico Rodríguez MD 01/12/2009 Office visit Ynoi Buckner MD
--- OUTSIDE RECORDS SUMMARY | 2019-11-24 14:08 | XMS REPORT ---
Author Author Dasia Buckner Organization [facility] Physicians oup Address [address] [place] [phone] Care Team Providers Care Manager Medical Affairs Name Role Phone Yoni Buckner PCP Unavailable [...] promethazine 25 mg oral tablet 10/30/2015 t anam aria 1 tablet (25 mg) by oral route [...] HC BMI BSA BMI Percentile O2 Sat(%) 07/04/2016 1:36:00 PM 126 mmHg 64 mmHg [...] AM Flu Injection 3 Years And Above [facility]# 492 81-0384-15 RHC Reviewed 02/16/2013 12:00 AM COMPLETE CBC W/AUTO DIFF WBC Reviewed 02/16/2013 12:00 AM COMPREHEN METABOLIC PANEL Reviewed 02/16/2013 12:00 AM LIPID PANEL Reviewed 02/18/2013 12:00 AM Flu Injection 3 Years And Above [facility]# 492 81-0384-15 RHC Reviewed 09/30/2013 12:00 AM [...] CVX Influenza 02/07/2012 sanofi pasteur PMC Fluzone [id number] Intramuscular Left Arm 02/07/2012 11/04/2011 141 X 02/07/2012 Merck & Co., Inc. MSD Pneumovax 23 1947aa Intramu scular Right Arm 02/07/2012 02/07/2009 33 Influenza 02/18/2013 sanofi pasteur PMC Fluzone [id number] Intramuscula r Left Deltoid 02/18/2013 11/27/2012 141 Pneumococcal 03/24/2015 Wwloo-Dsfunb-Yifjsly-Praxis WAL Prevnar 13 [id number] Intramuscular Right Deltoid 03/24/2015 07/01/2012 133 X 03/24/2015 Hmmlq-Lerxfh-Pslfpku-Praxis WAL Prevnar 13 [id number] Intramuscular Right Deltoid 03/24/2015 07/01/2012 133 Influenza 03/24/2015 sanofi pasteur PMC Fluzone Quadrivalent UI4 31AE Intramuscular Left Deltoid 03/24/2015 12/09/2014 141 Influenza 02/27/2016 sanofi pasteur PMC Fluzone [id number] Intramuscula r Left Deltoid 02/27/2016 12/09/2014 141 [...] 2016 10:17AM Neuropathy Jul 04 2016 1:38PM Payers Insurance Name Company Name Plan Name Plan Number Policy Number Dwight cy Group Number Start Date Medicare RHC Medicare RHC [id number] N/[facility] [id number] [place] 2008 Medicare Part A Medicare Part A [id number] N/A Medicare Part A Medicare - Lab/Xray [id number] N/A Medicare Part B Medicare Of [place] [id number] Wednesday, December 03, 2008 History of Encounters Visit Date Visit Type Provider 07/04/2016 Office visit Yoni Buckner MD 02/27/2016 [...] Rendon MD 06/13/2011 Office visit Yeimi Christian CLOSING MANAGER 07/23/2010 Office visit Federico Rodríguez MD 01/12/2009 Office visit Yoni Buckner MD
[2019-11-24 14:09] LABS: CHLORIDE 102 MMOL/L (98-107)
--- OUTSIDE RECORDS SUMMARY | 2019-11-24 14:09 | XMS REPORT ---
Author Author Dasia Buckner [facility] Physicians oup Address [address] [place] [phone] Care Team Providers Care Certified Technician Name Role Phone Yoni Buckner PCP Yoni [...] HC BMI BSA BMI Percentile O2 Sat(%) 09/30/2017 2:26:00 PM 128 mmHg 86 mmHg [...] Flu Injection [address] [facility]# 492 81-0384-15 C Reviewed 03/06/2017 12:00 AM INFLUENZA VAC 4 VALENT PRSRV FREE 3 YRS PLUS IM Reviewed 02/16/2013 12:00 AM ROUTINE VENIPUNCTURE Reviewed 02/16/2013 12:00 AM COMPLETE CBC W/AUTO DIFF WBC Reviewed 02/16/2013 12:00 AM COMPREHEN METABOLIC PANEL Reviewed 02/16/2013 12:00 AM LIPID PANEL Reviewed 02/18/2013 12:00 AM Flu Injection [address] [facility]# 492 81-0384-15 RHC Reviewed 09/30/2013 12:00 [...] Vis Pub CVX Influenza 02/07/2012 sanofi pasteur [facility] FLUZONE [id number] Intramuscular Left Arm 02/07/2012 11/04/2011 141 X 02/07/2012 Merck & Co., Inc. MSD PNEUMOVAX 23 1947aa Intramu scular Right Arm 02/07/2012 02/07/2009 33 Influenza 02/18/2013 sanofi pasteur PMC FLUZONE [id number] Intramuscula r Left Deltoid 02/18/2013 11/27/2012 141 Pneumococcal 03/24/2015 Ppdxt-Ztdnjh-Xnlgjnh-Praxis WAL PREVNAR 13 [id number] Intramuscular Right Deltoid 03/24/2015 07/01/2012 133 X 03/24/2015 Dhpex-Qmkhyv-Wnybwdr-Praxis WAL PREVNAR 13 [id number] Intramuscular Right Deltoid 03/24/2015 07/01/2012 133 Influenza 03/24/2015 sanofi [facility] PMC Fluzone Quadrivalent UI4 31AE Intramuscular Left Deltoid 03/24/2015 12/09/2014 141 Influenza 02/27/2016 sanofi [facility] FLUZONE [id number] Intramuscula r Left Deltoid 02/27/2016 12/09/2014 141 Influenza 03/06/2017 [employer] [facility] Flulaval quadrivalent [id number] [id number] Intramuscular Left Deltoid [...] 2017 10:49AM Neuropathy Sep 30 2017 2:27PM Payers Insurance Name Company Name Plan Name Plan Number Policy Number Dwight cy Group Number Start Date Medicare RHC Medicare RHC [id number] N/A [facility] [id number] Mo 2008 Medicare Part A Medicare Part A [id number] N/A Medicare Part A Medicare - Lab/Xray [id number] N/A Medicare Part B Medicare Of [place] [id number] Wednesday, December 03, 2008 History of Encounters Visit Date Visit Type Provider 09/30/2017 Office visit Yoni Buckner MD 06/25/2017 [...] MD 09/24/2011 [facility] 09/19/2011 [facility] Dominique Wright MD 08/28/2011 [facility] Dominqiue Wright MD 08/28/2011 [facility] Lamar Rendon MD 06/13/2011 Office visit Yeimi Christian APRN 07/23/2010 Office visit Federico Rodríguez MD 01/12/2009 Office visit Yoni Buckner MD
--- OUTSIDE RECORDS SUMMARY | 2019-11-24 14:09 | XMS REPORT ---
Author Author Dasia Buckner Organization [facility] Physicians oup Address [address] [place] [phone] Care Team Providers Care Night Nurse Name Role Phone Yoni Buckner PCP Unavailable [...] oral route every 6 hours as needed pravastatin 40 mg oral tablet 08/22/2015 TAKE ONE TA BLET BY MOUTH ONCE DAILY Bactrim DS 800-160 mg oral tablet take 1 tablet by oral route every 12 hours for 7 days doxycycline hyclate 100 mg oral capsule 10/10/2015 6 take 1 capsule by oral route 2 times a day for 10 days Name Start Date Expiration Date SIG [...] HC BMI BSA BMI Percentile O2 Sat(%) 10/10/2015 2:13:00 PM 130 mmHg 86 mmHg [...] AM Flu Injection 3 Years And Above [facility]# 492 81-0384-15 [facility] Reviewed 02/16/2013 12:00 AM COMPLETE CBC W/AUTO DIFF WBC Reviewed 02/16/2013 12:00 AM COMPREHEN METABOLIC PANEL Reviewed 02/16/2013 12:00 AM LIPID PANEL Reviewed 02/18/2013 12:00 AM Flu Injection 3 Years And Above [facility]# 492 81-0384-15 [facility] Reviewed 09/30/2013 12:00 AM COMPLETE CBC [...] BILI 0.60 mg/dLCALCIUM 9.60 mg/dLeGFR >60 mL/min/1.73 [id number] 114.0 mg/dLCHOLESTEROL 326.0 mg/dLHDL 47.0 mg/dLLDL (CALC) [...] BILI 0.60 mg/dLCALCIUM 9.50 mg/dLeGFR >60 mL/min/1.73 [id number] 113.0 mg/dLCHOLESTEROL 225.0 mg/dLHDL 50.0 mg/dLLDL (CALC) [...] HGB 16.40 g /dLHCT 46.70 %MCV 88.0 fLH 30.90 [facility] 35.10 g/dLRDW CV 13.90 %MPV 9.70 fLPLT 270 %NEUT 65.50 %%LYMP 25.30 %%MONO 7.30 %%EOS 1.50 %%BASO 0.40 %#NEUT 6.28 #LYMP 2.43 #MONO 0.70 #EOS 0.14 #BASO 0.04 GLUCOSE 70.0 mg/dLSODIUM 133.0 mmol/LPOTASSIUM 5.10 mmol/LCHLORIDE 98.0 mmol/LCO2 24.0 mmol/LBUN 9.0 mg/dLCREATININE 0.80 mg/dLSGOT/AST 18.0 IU/LSGPT/ALT 10.0 IU/LALK PHOS 99.0 IU/LTOTAL PROTEIN 7.90 g/dLALBUMIN 4.60 g/dLTOTAL BILI 0.40 mg/dLCALCIUM 9.90 mg/dLeGFR >60 mL/min/1.73 [id number] 260.0 mg/dL History Of Immunizations Name Date Admin Mfg Name Mfg Code Trade Name Lot# Route Inj Vis Given Vis Pub CVX Influenza 02/07/2012 sanbuildabrand pasteur PMC Fluzone [id number] Intramuscular Left Arm 02/07/2012 11/04/2011 141 X 02/07/2012 Merck & Co., Inc. MSD Pneumovax 23 1947aa Intramu scular Right Arm 02/07/2012 02/07/2009 33 Influenza 02/18/2013 [employer] PMC Fluzone [id number] Intramuscula r Left Deltoid 02/18/2013 11/27/2012 141 PCV 03/24/2015 Useuh-Cqbleo-Qczncjw-Praxis WAL Prevnar 13 [id number] Intramuscular Right Deltoid 03/24/2015 07/01/2012 133 X 03/24/2015 Amvlr-Aaxpkg-Eywfspp-Praxis WAL Prevnar 13 [id number] Intramuscular Right Deltoid 03/24/2015 07/01/2012 133 Influenza 03/24/[address] [facility] Fluzone Quadrivalent UI4 31AE Intramuscular Left Deltoid [...] 9:18AM Paronychia, right Oct 10 2015 2:19PM Payers Insurance Name Company Name Plan Name Plan Number Policy Number Dwight cy Group Number Start Date Medicare Part A Medicare RHC [id number] N/A BC[facility] [id number] [place] 2008 Medicare Part A Medicare Part A [id number] N/A Medicare Part A Medicare - Lab/Xray [id number] N/A Medicare Part B Medicare Of [place] [id number] Wednesday, December 03, 2008 History of Encounters Visit Date Visit Type Provider 10/10/2015 Office visit Yoni Buckner MD 06/26/2015 [...] Yoni Buckner MD 08/12/2012 Office visit Clarita SANTANA 07/16/2012 Office visit Ewelina Peres MD 05/11/2012 Office visit Yoni Buckner MD 04/14/2012 Voided Clarita Maddox PRN 02/07/2012 Office visit Yoni Buckner MD 11/19/2011 Office visit Ewelina Peres MD 11/07/2011 Office visit Yoni Buckner MD 10/08/2011 Office visit Yoni Buckner MD 09/24/2011 Office visit Yoni Buckner MD 09/24/2011 [facility] Ewelina Peres MD 09/19/2011 [facility] Ewelina Peres MD 09/17/2011 [facility] Ewelina Peres MD 09/16/2011 [facility] Ewelina Peres MD 09/12/2011 [facility] Ewelina Peres MD 09/10/2011 [facility] Ewelina Peres MD 09/01/2011 [facility] Justine Linares MD 08/31/2011 [facility] Lamar Rendon MD 08/31/2011 [facility] Justine Linares MD 08/29/2011 [facility] Dominique Wright MD 08/28/2011 [facility] Dominique Wright MD 08/28/2011 [facility] Lamar Rendon MD 06/13/2011 Office visit Yeimi Christian BOAT PULLER 07/23/2010 Office visit Federico Rodríguez MD 01/12/2009 Office visit Yoni Buckner MD
--- OUTSIDE RECORDS SUMMARY | 2019-11-24 14:09 | XMS REPORT ---
Author Author Dasia Almazan [facility] oup Address [address] [place] [id number] Care Team Providers Care Financial Economist Name Role Phone Brayan Almazan PCP Yoni [...] Flu Injection 3 Years And [address] [facility]# [id number] 81-0384-15 RHC Reviewed 03/06/2017 12:00 AM INFLUENZA VAC 4 VALENT PRSRV FREE 3 YRS PLUS IM Reviewed 02/16/2013 12:00 AM ROUTINE VENIPUNCTURE Reviewed 02/16/2013 12:00 AM COMPLETE CBC W/AUTO DIFF WBC Reviewed 02/16/2013 12:00 AM COMPREHEN METABOLIC PANEL Reviewed 02/16/2013 12:00 AM LIPID PANEL Reviewed 02/18/2013 12:00 AM Flu Injection 3 Years And Above [facility]# 492 81-0384-15 RHC Reviewed 09/30/2013 12:00 [...] Vis Given Vis Pub CVX Influenza 02/07/2012 san[facility] Rental Units [facility] PMC Fluzone [id number] Intramuscular Left Arm 02/07/2012 11/04/2011 141 X 02/07/2012 [employer] MSD Pneumovax 23 1947aa Intramu scular Right Arm 02/07/2012 02/07/2009 33 Influenza 02/18/2013 [facility] Fluzone [id number] Intramuscula r Left Deltoid 02/18/2013 11/27/2012 141 Pneumococcal 03/24/2015 Tvrci-Okibyw-Tgoeecf-Praxis WAL Prevnar 13 [id number] Intramuscular Right Deltoid 03/24/2015 07/01/2012 133 X 03/24/2015 Crcsd-Xcjqbe-Rbanexs-Praxis WAL Prevnar 13 [id number] Intramuscular Right Deltoid 03/24/2015 07/01/2012 133 Influenza 03/24/2015 [facility] Fluzone Quadrivalent [id number] Intramuscular Left Deltoid 03/24/2015 12/09/2014 141 Influenza 02/27/2016 [facility] Fluzone [id number] Intramuscula r Left Deltoid 02/27/2016 12/09/2014 141 Influenza 03/06/2017 [employer] [facility] Flulaval Quadrivalent [id number] [id number] Intramuscular Left Deltoid [...] 9:03AM Postoperative Follow-up Apr 29 2017 9:50AM Payers Insurance Name Company Name Plan Name Plan Number Policy Number Dwight cy Group Number Start Date Medicare RHC Medicare RHC [id number] N/A [employer] [place] [id number] Mo 2008 Medicare Part A Medicare Part A [id number] N/A Medicare Part A Medicare - Lab/Xray [id number] N/A Medicare Part B Medicare Of [place] [id number] Wednesday, December 03, 2008 History of Encounters [...] 09/24/2011 Office visit Yoni Buckner MD 09/24/2011 [facility] Ewelina Peres MD 09/19/2011 [facility] Ewelnia Peres MD 09/17/2011 [facility] Ewelina Peres MD 09/16/2011 [facility] Ewelina Peres MD 09/12/2011 [facility] Ewelina Peres MD 09/10/2011 [facility] Ewelina Peres MD 09/01/2011 [facility] Justine Linares MD 08/31/2011 [facility] Lamar Rendon MD 08/31/2011 [facility] Justine Linares MD 08/29/2011 [facility] Dominique Wright MD 08/28/2011 [facility] Dominique Wright MD 08/28/2011 [facility] Lamar Rendon MD 06/13/2011 Office visit Yeimi Christian APRN 07/23/2010 Office visit Federico Rodríguez MD 01/12/2009 Office visit Yoni Buckner MD
[2019-11-24 14:10] LABS: SODIUM 134 MMOL/L (135-145)
--- OUTSIDE RECORDS SUMMARY | 2019-11-24 14:10 | XMS REPORT | Continuity of Care Document ---
Demographics Preferred Language Unknown Marital Status Unknown Mormon Affiliation Unknown Race Unknown Ethnic Group Unknown Author Organization Unknown Address Unknown Phone Unavailable Allergies Active Description Code Type Severity Reaction Onset Reported/Identified Relationship to Patient Clinical Status Yes PENICILLINS (CLASS) [id number] CLAS S N/A N/A Medications There is no data. Problems There is no data. Procedures There is no data. Results There is no data. Encounters ACCT No. Visit Date/Time Discharge Status Pt. Type Provider Facility Loc./Unit Complaint [id number] 08/03/2018 15:04:00 Document Registration [id number] 11/03/2018 15:24:22 11/03/2018 23:59: 59 Yoni Waller [id number] 05/07/2018 13:50:21 05/07/2018 23:59: 59 Yoni Waller [id number] 01/29/2018 15:17:13 01/29/2018 23:59: 59 [facility] Yoni Buckner [id number] 09/30/2017 15:16:57 09/30/2017 23:59: 59 [facility] Yoni Buckner [id number] 06/25/2017 11:11:30 06/25/2017 23:59: 59 [facility] Brayan Almazan [id number] 06/24/2017 15:20:20 06/24/2017 23:59: 59 [facility] Yoni Buckner [id number] 06/11/2017 10:49:54 06/11/2017 23:59: 59 Brayan Boyd [id number] 06/04/2017 12:03:35 06/04/2017 23:59: 59 Brayan Boyd [id number] 06/02/2017 15:45:09 06/02/2017 23:59: 59 Brayan Boyd [id number] 04/29/2017 10:45:40 04/29/2017 23:59: 59 Brayan Boyd [id number] 04/21/2017 10:31:51 04/21/2017 23:59: 59 Brayan Boyd [id number] 04/21/2017 09:55:43 04/21/2017 23:59: 59 CLS Outpatient HetlingerYoni [id number] 04/08/2017 10:30:51 04/08/2017 23:59: 59 CLS Outpatient HetlingerYoni [id number] 03/06/2017 14:09:14 03/06/2017 23:59: 59 CLS Outpatient HetlingerYoni [id number] 10/10/2016 14:09:49 10/10/2016 23:59: 59 CLS Outpatient HetlingerYoni [id number] 07/04/2016 14:12:37 07/04/2016 23:59: 59 CLS Outpatient HetlingerYoni [id number] 02/27/2016 10:32:28 02/27/2016 23:59: 59 CLS Outpatient HetlingerYoni [id number] 10/30/2015 10:35:26 10/30/2015 23:59: 59 CLS Outpatient HetlingerYoni [id number] 06/26/2015 14:55:44 06/26/2015 23:59: 59 CLS Outpatient HetlingerYoni [id number] 03/24/2015 10:47:15 03/24/2015 23:59: 59 CLS Outpatient HetlingerYoni [id number] 12/12/2014 21:34:54 12/12/2014 23:59: 59 CLS Outpatient HetlingerYoni [id number] 03/30/2014 10:39:48 03/30/2014 23:59: 59 CLS Outpatient HetlingerYoni [id number] 02/24/2014 12:19:13 02/24/2014 23:59: 59 CLS Outpatient HetlingerYoni [id number] 10/21/2013 09:59:23 10/21/2013 23:59: 59 CLS Outpatient HetlingerYoni [id number] 09/30/2013 11:25:55 09/30/2013 23:59: 59 CLS Outpatient Hetlinger Yoni
--- OUTSIDE RECORDS SUMMARY | 2019-11-24 14:10 | XMS REPORT ---
Author Author Dasia Almazan [facility] oup Address [address] [place] [id number] Care Team Providers Care Chemical Laboratory Chief Name Role Phone Brayan Almazan PCP Yoni [...] HC BMI BSA BMI Percentile O2 Sat(%) 06/25/2017 10:49:00 AM 130 mmHg 82 mmHg [...] AM Flu Injection 3 Years And Above [facility]# 492 81-0384-15 RHC Reviewed 03/06/2017 12:00 AM INFLUENZA VAC 4 VALENT PRSRV FREE 3 YRS PLUS IM Reviewed 02/16/2013 12:00 AM ROUTINE VENIPUNCTURE Reviewed 02/16/2013 12:00 AM COMPLETE CBC W/AUTO DIFF WBC Reviewed 02/16/2013 12:00 AM COMPREHEN METABOLIC PANEL Reviewed 02/16/2013 12:00 AM LIPID PANEL Reviewed 02/18/2013 12:00 AM Flu Injection 3 Years And Above [facility]# 492 81-0384-15 C Reviewed 09/30/2013 12:00 AM [...] CVX Influenza 02/07/2012 [employer] PMC Fluzone [id number] Intramuscular Left Arm 02/07/2012 11/04/2011 141 X 02/07/2012 [employer] MSD Pneumovax 23 1947aa Intramu scular Right Arm 02/07/2012 02/07/2009 33 Influenza 02/18/2013 [employer]i pasteur PMC Fluzone [id number] Intramuscula r Left Deltoid 02/18/2013 11/27/2012 141 Pneumococcal 03/24/2015 Oguti-Ficifk-Ijocdch-Praxis WAL Prevnar 13 [id number] Intramuscular Right Deltoid 03/24/2015 07/01/2012 133 X 03/24/2015 Qwuie-Qlihnc-Grzmzck-Praxis WAL Prevnar 13 [id number] Intramuscular Right Deltoid 03/24/2015 07/01/2012 133 Influenza 03/24/2015 sanofi pasteur PMC Fluzone Quadrivalent UI4 [id number] Intramuscular Left Deltoid 03/24/2015 12/09/2014 141 Influenza 02/27/2016 [facility] Fluzone [id number] Intramuscula r Left Deltoid 02/27/2016 12/09/2014 141 Influenza 03/06/2017 [facility] Flulaval Quadrivalent [id number] [id number] Intramuscular Left [...] 2017 10:49AM [place] Jun 25 2017 10:49AM Payers Insurance Name Company Name Plan Name Plan Number Policy Number Dwight cy Group Number Start Date Medicare RHC Medicare RHC [id number] [id number] Mo 2008 Medicare Part A Medicare Part A [id number] N/A Medicare Part A Medicare - Lab/Xray [id number] N/A Medicare Part B Medicare Of [place] [id number] Wednesday, December 03, 2008 History of Encounters Visit Date Visit Type Provider 06/25/2017 Office visit Brayan Almazan MD 06/24/2017 [...] Yoni Buckner MD 07/04/2016 Office visit Yoni Bucnker MD 02/27/2016 Office visit Yoni Buckner MD [...] Rendon MD 06/13/2011 Office visit Yeimi Christian MOLD CAR PUSHER 07/23/2010 Office visit Federico Rodríguez MD 01/12/2009 Office visit Yoni Buckner MD
[2019-11-24 14:11] LABS: CALCIUM 8.8 MG/DL (8.5-10.1); GLUCOSE 108 MG/DL (70-105)
[2019-11-24 14:13] LABS: CARBON DIOXIDE 20 MMOL/L (21-32)
[2019-11-24 14:15] LABS: GFR ESTIMATED > 60
[2019-11-24 14:16] LABS: BUN/CREATININE RATIO 13
[2019-11-24 14:22] LABS: POTASSIUM 4.6 MMOL/L (3.6-5.0)
[2019-11-24 14:23] LABS: BAND NEUTROPHILS 5 %; BASOPHILS % (MANUAL) 0 %; EOSINOPHILS % (MANUAL) 0 %; LYMPHOCYTES % (MANUAL) 12 %; MONOCYTES % (MANUAL) 4 %; NEUTROPHILS % (MANUAL) 79 %; RBC MORPH NORMAL
[2019-11-24 14:52] LABS: BILIRUBIN,URINE NEGATIVE (NEGATIVE); CLARITY,URINE CLEAR; COLOR,URINE YELLOW; GLUCOSE, URINE (UA) NEGATIVE (NEGATIVE); KETONES,URINE NEGATIVE (NEGATIVE); LEUKOCYTE ESTERASE ,URINE NEGATIVE (NEGATIVE); NITRITE,URINE NEGATIVE (NEGATIVE); PROTEIN,URINE NEGATIVE (NEGATIVE)
--- NOTE | 2019-11-24 15:01 | Diagnostic Imaging Report ---
PROCEDURE: CT pelvis without contrast. TECHNIQUE: Multiple contiguous axial images were obtained through the pelvis without the use of intravenous contrast. Sagittal and coronal reformations were performed. Auto Exposure Controls were utilized during the CT exam to meet ALARA standards for radiation dose reduction. INDICATION: Questionable pubic ramus fracture. Study is performed for further evaluation. COMPARISON: Correlation is made with plain films of the pelvis performed earlier today. FINDINGS: There is an acute-appearing fracture of the right inferior pubic ramus, correlating with the plain film abnormality. This appears nondisplaced. The left inferior pubic ramus as well as bilateral superior pubic rami are intact. Femoral acetabular alignment is normal bilaterally. No hip fracture is identified. Sacral ala are intact bilaterally. IMPRESSION: Nondisplaced right inferior pubic ramus fracture. No hip fracture is identified. Dictated by: Dictated on workstation # [id number]
[2019-11-24 15:05] LABS: BACTERIA,URINE TRACE /HPF; SQUAMOUS EPITHELIAL CELL,UR 0-2 /HPF
[2019-11-24] MEDS ORDERED: HYDROcodone/APAP 5 MG/325 MG (LORTAB) TAB PO ONE (16:00)
--- NOTE | 2019-11-24 16:17 | NUR ---
ANNE STANLEY CONTACT NUMBER [phone]
[2019-11-24 16:31] VITALS: BP 110/53
[2019-11-24] MEDS ORDERED: BISACODYL 10 MG SUPP (DULCOLAX) PR PRN (18:15)
[2019-11-24] MEDS ORDERED: HYDROmorphone 2 MG/ML VIAL (DILAUDID) IV PRN (18:15)
[2019-11-24] MEDS ORDERED: ONDANSETRON 4 MG/2 ML (SDV) Z0FRAN IV PRN (18:15)
[2019-11-24] MEDS ORDERED: ONDANSETRON 4 MG (ZOFRAN) ORAL DISSOLVE TAB PO PRN (18:15)
[2019-11-24] MEDS ORDERED: MELATONIN 3 MG TABLET PO PRN (18:15)
[2019-11-24] MEDS ORDERED: ACETAMINOPHEN 325 MG TABLET PO PRN (18:15)
[2019-11-24] MEDS ORDERED: polyethylene glycoL POWDER 17 GM (MIRALAX) PACK PO PRN (18:15)
[2019-11-24] MEDS ORDERED: ANTACID SUSP 30 ML UDC (MYLANTA) PO PRN (18:15)
--- OUTSIDE RECORDS SUMMARY | 2019-11-24 18:21 | XMS REPORT | Continuity of Care Document ---
Demographics Preferred Language Unknown Marital Status Unknown Druze Affiliation Unknown Race Unknown Ethnic Group Unknown Author Organization Unknown Address Unknown Phone Unavailable Allergies Active Description Code Type Severity Reaction Onset Reported/Identified Relationship to Patient Clinical Status Yes PENICILLINS (CLASS) [id number] CLAS S N/A N/A Medications There is no data. Problems There is no data. Procedures There is no data. Results Test Result Range Complete blood count (CBC) with automate d white blood cell (WBC) differential - 11/24/19 13:52 Blood leukocytes automated count (number/volume) 15.8 10*3/uL 4.3-11.0 Blood erythrocytes automated count (number/volume) 4.87 10*6/uL 4.35-5.85 Venous blood hemoglobin measurement (mass/volume) 14.4 g/dL 11.5-16.0 Blood hematocrit (volume fraction) 42 % 35-52 Automated erythrocyte mean corpuscular volume 86 [ foz_us] 80-99 Automated erythrocyte mean corpuscular h emoglobin (mass per erythrocyte) 30 pg 25-34 Automated erythrocyte mean corpuscular h emoglobin concentration measurement (mass/volume) 34 g/dL 32-36 Automated erythrocyte distribution width ratio 13. 9 % 10.0- 14.5 Automated blood platelet count (count/volume) 278 10*3/uL 130-400 Automated blood platelet mean volume measurement 9.5 [foz_us] 7.4-10.4 Automated blood neutrophils/100 leukocytes 85 % 42-75 Automated blood lymphocytes/100 leukocytes 9 % 12-44 Blood monocytes/100 leukocytes 7 % 0-12 Automated blood eosinophils/100 leukocytes 0 % 0-10 Automated blood basophils/100 leukocytes 0 % 0-10 Blood neutrophils automated count (number/volume) 13.3 10*3 1.8-7.8 Blood lymphocytes automated count (number/volume) 1.4 10*3 1.0-4.0 Blood monocytes automated count (number/volume) 1. 1 10*3 0.0-1.0 Automated eosinophil count 0.0 10*3/uL 0 .0-0.3 Automated blood basophil count (count/volume) 0.0 10*3/uL 0.0-0.1 Whole blood basic metabolic panel - 11/03 06/24 13:52 Serum or plasma sodium measurement (moles/volume) 134 mmol/L 135-145 Serum or plasma potassium measurement (moles/volume) 4.6 mmol/L 3.6-5.0 Serum or plasma chloride measurement (moles/volume) 102 mmol/L 98-107 Carbon dioxide 20 mmol/L 21-32 Serum or plasma anion gap determination (moles/volume) 12 mmol/L 5-14 Serum or plasma urea nitrogen measurement (mass/volume ) 9 mg/dL 7-18 Serum or plasma creatinine measurement (mass/volume) 0.70 mg/dL 0.60-1.30 Serum or plasma urea nitrogen/creatinine mass ratio 13 NRG Serum or plasma creatinine measurement w ith calculation of estimated glomerular filtration rate > NRG Serum or plasma glucose measurement (mass/volume) 108 mg/dL 70-105 Serum or plasma calcium measurement (mass/volume) 8.8 mg/dL 8.5-10.1 Manual absolute plasma cell count - 11/03 06/24 13:52 Blood monocytes/100 leukocytes 4 % NRG Manual blood segmented neutrophils/100 leukocytes 79 % NRG Blood band neutrophils/100 leukocytes 5 % NRG Manual blood lymphocytes/100 leukocytes 12 % NRG Manual eosinophils/100 leukocytes in nose 0 % NRG Manual blood basophils/100 leukocytes 0 % NRG Blood erythrocyte morphology finding identification NORMAL NRG Complete urinalysis with reflex to cultu re - 11/24/19 14:06 Urine color determination YELLOW NRG Urine clarity determination CLEAR NR G Urine pH measurement by test strip 7.0 5-9 Specific gravity of urine by test strip 1.015 1.016-1.022 Urine protein assay by test strip, semi-quantitative NEGATIVE NEGATIVE Urine glucose detection by automated test strip NE GATIVE NEGATIVE Erythrocytes detection in urine sediment by light micr oscopy TRACE-L NEGATIVE Urine ketones detection by automated test strip NE GATIVE NEGATIVE Urine nitrite detection by test strip NEGATIVE NEGATIVE Urine total bilirubin detection by test strip NEGA TIVE NEGATIVE Urine urobilinogen measurement by automated test strip (mass/volume) 0.2 mg/dL < = 1.0 Urine leukocyte esterase detection by dipstick NEG ATIVE NEGATIVE Automated urine sediment erythrocyte cou nt by microscopy (number/high power field) [HPF] NRG Automated urine sediment leukocyte count by microscopy (number/high power field) NONE NRG Bacteria detection in urine sediment by light microsco py TRACE NRG Squamous epithelial cells detection in u rine sediment by light microscopy 0-2 NRG Crystals detection in urine sediment by light microsco py NONE NRG Casts detection in urine sediment by light microscopy NONE NRG Mucus detection in urine sediment by light microscopy NEGATIVE NRG Complete urinalysis with reflex to culture NO NRG Encounters ACCT No. Visit Date/Time Discharge Status Pt. Type Provider Facility Loc./Unit Complaint [id number] 08/03/2018 15:04:00 Document Registration [id number] 11/24/2019 14:01:00 Document Registration [id number] 11/03/2018 15:24:22 11/03/2018 23:59: 59 [facility] Outpatient Yoni Buckner [id number] 05/07/2018 13:50:21 05/07/2018 23:59: 59 [facility] Outpatient Yoni Buckner [id number] 01/29/2018 15:17:13 01/29/2018 23:59: 59 CLS Outpatient Yoni Buckner [id number] 09/30/2017 15:16:57 09/30/2017 23:59: 59 CLS Outpatient Yoni Buckner [id number] 06/25/2017 11:11:30 06/25/2017 23:59: 59 [facility] Outpatient Brayan Almazan [id number] 06/24/2017 15:20:20 06/24/2017 23:59: 59 CLS Outpatient CecileYoni villagomez [id number] 06/11/2017 10:49:54 06/11/2017 23:59: 59 [facility] Outpatient Brayan Almazan [id number] 06/04/2017 12:03:35 06/04/2017 23:59: 59 CLS Outpatient Brayan Almazan [id number] 06/02/2017 15:45:09 06/02/2017 23:59: 59 [facility] Outpatient Brayan Almazan [id number] 04/29/2017 10:45:40 04/29/2017 23:59: 59 [facility] Outpatient Brayan Almazan [id number] 04/21/2017 10:31:51 04/21/2017 23:59: 59 [facility] Outpatient Brayan Almazan [id number] 04/21/2017 09:55:43 04/21/2017 23:59: 59 CLS Outpatient Yoni Buckner [id number] 04/08/2017 10:30:51 04/08/2017 23:59: 59 CLS Outpatient HetlingerYoni [id number] 03/06/2017 14:09:14 03/06/2017 23:59: 59 CLS Outpatient HetlingerYoni [id number] 10/10/2016 14:09:49 10/10/2016 23:59: 59 CLS Outpatient HetlingerYoni [id number] 07/04/2016 14:12:37 07/04/2016 23:59: 59 CLS Outpatient HetlingerYoni [id number] 02/27/2016 10:32:28 02/27/2016 23:59: 59 CLS Outpatient HetlingerYoni [id number] 10/30/2015 10:35:26 10/30/2015 23:59: 59 CLS Outpatient HetlingerYoni [id number] 06/26/2015 14:55:44 06/26/2015 23:59: 59 CLS Outpatient HetlingerYoni [id number] 03/24/2015 10:47:15 03/24/2015 23:59: 59 CLS Outpatient HetlingerYoni [id number] 12/12/2014 21:34:54 12/12/2014 23:59: 59 CLS Outpatient HetlingerYoni [id number] 03/30/2014 10:39:48 03/30/2014 23:59: 59 CLS Outpatient HetlingerYoni [id number] 02/24/2014 12:19:13 02/24/2014 23:59: 59 CLS Outpatient HetlingerYoni [id number] 10/21/2013 09:59:23 10/21/2013 23:59: 59 CLS Outpatient HetlingerYoni [id number] 09/30/2013 11:25:55 09/30/2013 23:59: 59 CLS Outpatient HetlingerYoni
[2019-11-24] MEDS: ENOXAPARIN 40 MG/0.4 ML (LOVENOX) SYR SC SCH (18:45)
[2019-11-24] MEDS ORDERED: HYDROcodone/APAP 5 MG/325 MG (LORTAB) TAB PO PRN (20:00)
[2019-11-24 20:15] VITALS: BP 101/54
[2019-11-24] MEDS: inSUlin ASPART (NovoLOG) 1 UNIT/0.01 ML (CHARGE PER UNIT) SC SCH (20:24)
[2019-11-24] MEDS: SENNOSIDES 8.6 MG (SENOKOT) TAB PO SCH (20:24)
[2019-11-24] MEDS: DOCUSATE SODIUM 100 MG (COLACE) CAP PO SCH (20:26)
[2019-11-25 01:13] VITALS: BP 99/62
[2019-11-25 04:12] VITALS: BP 104/68
[2019-11-25] MEDS: inSUlin ASPART (NovoLOG) 1 UNIT/0.01 ML (CHARGE PER UNIT) SC SCH ×4 (06:03→21:02)
[2019-11-25 08:00] VITALS: BP 101/65
[2019-11-25] MEDS: DOCUSATE SODIUM 100 MG (COLACE) CAP PO SCH ×2 (08:34→21:02)
[2019-11-25] MEDS: SENNOSIDES 8.6 MG (SENOKOT) TAB PO SCH ×2 (08:34→21:02)
--- NOTE | 2019-11-25 09:56 | Physical Therapy Evaluation ---
PT Evaluation-General Medical Diagnosis Admission Date Nov 24, 2019 at 15:13 Medical Diagnosis: right hip pain/fall Onset Date: Nov 24, 2019 Therapy Diagnosis Therapy Diagnosis: debililty/weakness Precautions Precautions/Isolations: Fall Prevention, Standard Precautions Weight Bear Status Right Lower Extremity: Right Weight Bearing/Tolerated Left Lower Extremity: Left Weight Bearing/Tolerated Referral Physician: Inocencia Reason for Referral: Evaluation/Treatment Medical History Pertinent Medical History: CVA Current History EMS secondary to son found patient on floor at apartment. Reviewed History: Yes Social History Home: Apartment Current Living Status: Alone Entry Into Home: Level Entry (elevator) Prior Prior Level of Function SCALE: Activities may be completed with or without assistive devices. 7-Sghgufsbvq-obzhxue completes the activity by him/herself with no assistance from a helper. 5-Set-up or Clean-up Assistance-helper sets up or cleans up; patient completes activity. [place] assists only prior to or following the activity. 4-Supervision or Touching Assistance-helper provides verbal cues and/or touching/steadying and/or contact guard assistance as patient completes activity. Assistance may be provided throughout the activity or intermittently. 3-Partial/Moderate Assistance-helper does LESS THAN HALF the effort. [place] lifts, holds or supports trunk or limbs, but provides less than half the effort. 2-Substantial/Maximal Assistance-helper does MORE THAN HALF the effort. [place] lifts or holds trunk or limbs and provides more than half the effort. 9-Fvxcpxbqo-qeehif does ALL the effort. Patient does none of the effort to complete the activity. Or, the assistance of 2 or more helpers is required for the patient to complete the activity. If activity was not attempted, code reason: 7-Patient Refused. 9-Not Applicable-not attempted and the patient did not perform the activity before the current illness, exacerbation or injury. 10-Not Attempted due to Environmental Limitations-(lack of equipment, weather restraints, etc.). 88-Not Attempted due to Medical Conditions or Safety Concerns. Bed Mobility: 6 Transfers (B,C,W/C): 6 Gait: 6 Indoor Mobility (Ambulation): Independent Stairs: Not Applicalbe Prior Devices Use: None, Walker (PRN) PT Evaluation-Current Subjective Patient agrees to PT. Pain Numeric Pain Scale: 10-Worst Possible Pain Location: Right Location Body Site: Pelvic Pain Description: Acute, Sharp Objective Patient Orientation: Person, Time, Situation Attachments: IV ROM/Strength ROM Lower Extremities bilateral LE WFL Strength Lower Extremities right LE 3/5 grossly/left LE 4/5 grossly Integumentary/Posture Integumentary refer to nursing notes Bowel Incontinence: No Bladder Incontinence: No Posture WFL Neuromuscular (Tone, Coordination, Reflexes) grossly intact Sensory Vision: Wears Glasses Hearing: Functional Sensation Right Lower Extremit: Intact Sensation Left Lower Extremity: Intact Transfers Roll Left to Right (QC): 5 Lying to Sitting/Side of Bed(Q: 5 Sit to Stand (QC): 4 Chair/Wkg-kt-Ecjgr Xfer(QC): 4 Toilet Transfer (QC): 3 Gait Does the Patient Walk?: Yes Mode of Locomotion: Walk Anticipated Mode of Locomotion: Walk Walk 10 feet (QC): 3 Walk 50 ft with 2 Turns(QC): 88 Walk 150 ft (QC): 88 Distance: 15' x 4 Gait Assistive Device: FWW Comments/Gait Description difficulty with following gait training instruction to relieve right LE pressure with use of bilateral LE and use of FWW. Difficulty with weight shifting to right to advance left LE and to advance FWW. requires assistance to advance both by PT with patient resisting all verbal and tactile cues. Balance Sitting Static: Normal Sitting Dynamic: Normal Standing Static: Fair Standing Dynamic: Fair Assessment/Needs 73 y.o. female, will benefit from skilled PT to address functional strength and mobility to improve current LOF to safely return to home or care facility at maximum LOF. Patient has difficulty with following simple direction for gait training. Rehab Potential: Fair PT Detention Goals Curing Press Maintainer Goals PT Detention Goals Time Frame: Dec 11, 2019 Roll Left & Right (QC): 5 Sit to Lying (QC): 5 Lying-Sitting on Side/Bed(QC): 5 Sit to Stand (QC): 5 Chair/Tom-bb-Csqrk Xfer(QC): 5 Toilet Transfer (QC): 5 Car Transfer (QC): 5 Does the Patient Walk: Yes Walk 10 feet (QC): 5 Walk 50ft with 2 Turns (QC): 5 Walk 150 ft (QC): 5 Walking 10ft on Uneven Surface: 5 1 Step (curb) (QC): 5 PT Plan Problem List Problem List: Activity Tolerance, Functional Strength, Safety, Balance, Gait, Transfer, Bed Mobility Treatment/Plan Treatment Plan: Continue Plan of Care Treatment Plan: Bed Mobility, Education, Functional Activity Mirta, Functional Strength, Gait, Safety, Therapeutic Exercise, Transfers Treatment Duration: Dec 11, 2019 Frequency: 6 times per week Patient and/or Family Agrees t: Yes Safety Risks/Education Patient Education: Gait Training, Safety Issues Teaching Recipient: Patient Teaching Methods: Demonstration, Discussion Response to Teaching: Verbalize Understanding, Unable to Return Demonstration, Unable to Comprehend, Reinforcement Needed Discharge Recommendations Therapy Discharge Recommendati: Other, See Comments (ARU or mcfp) Time/GCodes Time In: 900 Time Out: 931 Total Billed Treatment Time: 31 Total Billed Treatment 1 visit EVModC 14 min GT 17 min RIMMA SHEPHERD PT Nov 25, 2019 09:56
--- NOTE | 2019-11-25 10:06 | Consultation - Ortho ---
Consult - Ortho Subjective Date of Exam 11/25/19 Chief Complaint Right hip pain after fall HPI/Events since last exam Mrs. Lagunas is a 73-year-old white female who fell yesterday at home getting out of bed. She complained of right hip pain. Her son found her and she had difficulty weightbearing on the right leg. She was brought to the emergency room where she is evaluated and x-rayed noted to have fracture of the inferior pubic rami on the right which was nondisplaced. X-rays and CT scan were obtained of the pelvis. No hip fracture was noted. She is admitted for physical therapy and pain management. She does have a history of a stroke involving the right side. She does remember when it occurred. Since then she's been using either a walker or cane for ambulation. She states she notes no weakness in the right side. She denies any injury or pain elsewhere Medical, Surgical History Reviewed and no additions or changes Social History Reviewed and no additions or changes Family History Reviewed and no additions or changes Review of Systems Reviewed and no additions or changes Allergies: Coded Allergies: Penicillins (Verified Allergy, Unknown, 11/24/19) PATIENT STATES NKDA SON THINKS SHE MAY BE ALLERGIC TO PENICILLINS. Objective Exam Constitutional: [] HEENT: [] Neck: No pain with palpation or range of motion of cervical spine [] Cardiovascular: [] Respiratory: [] Gastrointestinal: [] Genitourinary: [] Skin: [] Back/Spine: [No pain with palpation or motion of the thoracic or lumbar spine] Extremities: [No pain with range of motion of the upper extremities. No deformity. No skin changes. She has good strength in the upper extremities. Normal sensation with good capillary refill. Equal radial pulses. Lower extremitiesshe has some mild pain with internal/external rotation of the right hip over the anterior pelvis. No pain with flexion of the hip. Mild pain with palpation anterior pelvis]. No pain over the posterior pelvis, SI joints. Good motion of the knees without pain. No deformity. No swelling. tenderness negative Homans. Good motion of both ankles without pain. No deformity. No instability. Normal sensation to the foot and toes with good capillary refill and equal pulses Neurologic: [] Psychiatric: [] Hematologic/lymphatic/immunologic: [] Vital Signs Vital Signs Date Time Temp Pulse Resp B/P (MAP) Pulse Ox O2 Delivery O2 Flow Rate FiO2 11/25/19 08:00 36.8 81 20 101/65 (77) 92 Room Air 11/25/19 04:12 37.0 82 18 104/68 (80) 95 Room Air 11/25/19 01:13 36.7 80 19 99/62 (74) 91 Room Air 11/24/19 20:15 36.5 83 16 101/54 (70) 91 Room Air 11/24/19 20:00 Room Air 11/24/19 17:30 94 Room Air 11/24/19 16:31 36.8 84 18 110/53 94 Room Air 11/24/19 16:11 84 18 110/53 94 Room Air 11/24/19 12:35 36.8 97 18 145/89 (107) 98 Room Air I & O 11/25/19 07:00 Intake Total 740 ml Output Total 450 ml Balance 290 ml Lab Results Laboratory Tests 11/24/19 13:52: White Blood Count 15.8H, Red Blood Count 4.87, Hemoglobin 14.4, Hematocrit 42, Mean Corpuscular Volume 86, Mean Corpuscular Hemoglobin 30, Mean Corpuscular Hem oglobin Concent 34, Red Cell Distribution Width 13.9, Platelet Count 278, Mean Platelet Volume 9.5, Neutrophils (%) (Auto) 85H, Lymphocytes (%) (Auto) 9L, Monocytes (%) (Auto) 7, Eosinophils (%) (Auto) 0, Basophils (%) (Auto) 0, Neutrophils # (Auto) 13.3H, Lymphocytes # (Auto) 1.4, Monocytes # (Auto) 1.1H, Eosinophils # (Auto) 0.0, Basophils # (Auto) 0.0, Neutrophils % (Manual) 79, Lymphocytes % (Manual) 12, Monocytes % (Manual) 4, Eosinophils % (Manual) 0, Basophils % (Manual) 0, Band Neutrophils 5, Blood Morphology Comment NORMAL, Sodium Level 134L, Potassium Level 4.6, Chloride Level 102, Carbon Dioxide Level 20L, Anion Gap 12, Blood Urea Nitrogen 9, Creatinine 0.70, Estimat Glomerular Filtration Rate > 60, BUN/Creatinine Ratio 13, Glucose Level 108H, Calcium Level 8.8 11/24/19 14:06: Urine Color YELLOW, Urine Clarity CLEAR, Urine pH 7.0, Urine Specific [place] 1.015L, Urine Protein NEGATIVE, Urine Glucose (UA) NEGATIVE, Urine Ketones NEGATIVE, Urine Nitrite NEGATIVE, Urine Bilirubin NEGATIVE, Urine Urobilinogen 0.2, Urine Leukocyte Esterase NEGATIVE, Urine RBC (Auto) TRACE-L, Urine RBC 2-5H , Urine WBC NONE, Urine Squamous Epithelial Cells 0-2, Urine Crystals NONE, Urine Bacteria TRACE, Urine Casts NONE, Urine Mucus NEGATIVE, Urine Culture Indicated NO 11/24/19 20:23: Glucometer 139H 11/25/19 05:50: Glucometer 110 Assessment and Plan Assessment Right inferior pubic rami fracture Problem List Unchanged Plan The above was discussed with the patient. I explained to her that with this type of fracture or patient can be as active as they can tolerate. There may be pain with certain positions are certain activities due to the muscle pull and attachment on the pubic rami. The fracture does not involve the joint. 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 Physical therapy has already seen her and ambulated with a walker. Increase activities as tolerated. Weightbearing as tolerated right lower extremity. From an orthopedic point of view she can be discharged when she is up and around. Follow-up as needed. Final Diagonsis Nondisplaced inferior pubic rami fracture right Level of the visit: Level 3 GAY STUBBS MD Nov 25, 2019 10:06
[2019-11-25 11:45] VITALS: BP_SYST 107; BP_SYST 86; BP_DIAS 61; BP_DIAS 67
--- NOTE | 2019-11-25 11:58 | Progress Note - Hospitalist ---
Subjective HPI/CC On Admission Date Seen by Provider: Nov 25, 2019 Time Seen by Provider: 09:40 Subjective/Events-last exam Dasia Lagunas is a 73-year-old female who presented after having a fall at home. She reports right hip pain. She says she felt a bit lightheaded before she fell. She denies any loss of consciousness. She says she did not hit her head. She denies any shortness of breath or cough. She denies any chest pain. She denies any abdominal pain. She denies any nausea or vomiting. She denies any dysuria. She has no other complaints or concerns. Objective Exam Vital Signs Vital Signs Date Time Temp Pulse Resp B/P (MAP) Pulse Ox O2 Delivery O2 Flow Rate FiO2 11/25/19 11:45 36.6 79 20 107/67 (80) 94 Room Air Capillary Refill : Less Than 3 SecondsLess Than 3 Seconds General Appearance: No Apparent Distress, WD/WN HEENT: PERRL/EOMI, Pharynx Normal Neck: Normal Inspection, Supple Respiratory: Lungs Clear, Normal Breath Sounds, No Respiratory Distress Cardiovascular: Regular Rate, Rhythm, No Edema, No Murmur Gastrointestinal: Normal Bowel Sounds, Non Tender, Soft Extremity: Normal Inspection, Non Tender, No Pedal Edema Neurologic/Psychiatric: Alert, Oriented x3, No Motor/Sensory Deficits, Normal Mood/Affect Skin: Normal Color, Warm/Dry Results/Procedures Lab Laboratory Tests 11/24/19 13:52 Patient resulted labs reviewed. Imaging: Reviewed Imaging Report Assessment/Plan Assessment and Plan Assess & Plan/Chief Complaint Ground level fall Pelvic fracture Imaging consistent with nondisplaced pelvic fracture Orthopedic surgery consulted, appreciate assistance No surgical intervention warranted, weightbearing as tolerated Pain regimen ordered Bowel regimen ordered PT/OT consulted, appreciate assistance IRU consult placed DVT prophylaxis: Lovenox Diagnosis/Problems Diagnosis/Problems (1) Inferior pubic ramus fracture Status: Acute Qualifiers: Encounter type: initial encounter Fracture type: closed Laterality: right Qualified Codes: S32.591A - Other specified fracture of right pubis, initial encounter for closed fracture (2) Debility Status: Acute (3) Fall from ground level Status: Acute Clinical Quality Measures DVT/VTE Risk/Contraindication: Risk Factor Score Per Nursin RFS Level Per Nursing on Admit: 4+=Very High GENIA MARTINS MD Nov 25, 2019 11:57
--- NOTE | 2019-11-25 13:08 | NUR ---
RD ASSESSMENT PMHx: hypercholesterolemia; stroke PT INTERACTION: Pt was awake and pleasant during consult for MST score. Pt states current appetite is "so-so." Note avg PO intake 50-75% x2meal, per chart review. Pt states following a regular diet at home, and has no issues with chewing/swallowing food. Pt states no recent issues with nausea, vomiting, constipation or diarrhea, and that her last BM was 11/24. Note pt currently on bowel regimen of colace BID; and senna BID, per chart review. Pt states no recent wt changes. Note unable to determine recent wt hx, per chart review. Upon visual assessment, pt appears to be adequately nourished with no visible signs of muscle/fat wasting, and a BMI of 20.6. Given PO intake, wt hx, and visual assessment, pt does not meet criteria for malnutrition per ASPEN guidelines. ABNORMAL NUTRITION-RELATED LAB VALUES LOW: Na 134 HIGH: glu 108 Est. kcal needs: 1375 kcal | 25 kcal/kg Est. Pro needs: 55 g Pro | 1.0 g Pro/kg PES STATEMENT: Inadequate oral intake (NI-2.1) related to loss of appetite as evidenced by pt interview | avg PO intake 50-75% x2meal INTERVENTION: Continue with current diet order of Regular diet. Continue with current supplementation order of Ensure Enlive (vary) with meals TID, for increased kcal intake. Provides 350 kcal and 13 g Pro per serving. DC supplementation when avg PO intake >75%. Will continue to follow and reassess as pt needs, intake, and status change. MONITOR/EVALUATE: PO Intake; Plan of Care; Hydration Status; Weight Status; Lab Values David Yost, MS, RD, LD
--- NOTE | 2019-11-25 14:00 | Occupational Therapy Eval ---
OT Evaluation-General/PLF Medical Diagnosis Admission Date Nov 24, 2019 at 15:13 Medical Diagnosis: right hip pain/fall Onset Date: Nov 24, 2019 Therapy Diagnosis Therapy Diagnosis: Decreased ADL skills following nondisplaced right inferior pubic ramus fx. Precautions Precautions/Isolations: Fall Prevention, Standard Precautions, Pressure Ulcer Weight Bear Status Weight Bearing Restriction: Weight Bearing/Tolerated Referral Physician: Inocencia Referral Reason: Activity Tolerance, Self Care, Evaluation/Treatment, Streng thening/ROM Medical History Pertinent Medical History: CVA Current History Pt. fell at home. Laid on floor until son found her. Pt. presented with nondisplaced, right inferior pubic ramus fx. Reviewed History: Yes Social History Home: Apartment Current Living Status: Alone Entry Into Home: Level Entry (elevator) Pt. states that she lives in a "[place] rise" in [place], but can't remember what it is called. ADL-Prior Level of Function SCALE: Activities may be completed with or without assistive devices. 1-Kqqaicmbib-pmsqdbi completes the activity by him/herself with no assistance from a helper. 5-Set-up or Clean-up Assistance-helper sets up or cleans up; patient completes activity. [place] assists only prior to or following the activity. 4-Supervision or Touching Assistance-helper provides verbal cues and/or touching/steadying and/or contact guard assistance as patient completes activity. Assistance may be provided throughout the activity or intermittently. 3-Partial/Moderate Assistance-helper does LESS THAN HALF the effort. [place] lifts, holds or supports trunk or limbs, but provides less than half the effort. 2-Substantial/Maximal Assistance-helper does MORE THAN HALF the effort. [place] lifts or holds trunk or limbs and provides more than half the effort. 6-Sxjywsxip-vmcbbp does ALL the effort. Patient does none of the effort to complete the activity. Or, the assistance of 2 or more helpers is required for the patient to complete the activity. If activity was not attempted, code reason: 7-Patient Refused. 9-Not Applicable-not attempted and the patient did not perform the activity before the current illness, exacerbation or injury. 10-Not Attempted due to Environmental Limitations-(lack of equipment, weather restraints, etc.). 88-Not Attempted due to Medical Conditions or Safety Concerns. ADL PLOF Comments Pt. verbalizes that she is typically independent with daily tasks. She has a walker that she uses only occasionally in her apartment. She states that she cooks and cleans for herself. Son checks on her. Self Care: Unknown Functional Cognition: Unknown DME/Equipment: Shower DME/Equipment Comments Pt. reports that she has a walker, but can't remember if she has a chair in her shower or not. OT Current Status Subjective Pt. does not report pain level. Appearance Pt. attempting to get her legs straight under the sheets when OT entered room. Pt. reports that she had attempted to lay herself down, and her feet got caught up in the sheets. Mental Status/Objective Patient Orientation: Unable to Assess ADL-Treatment Eating (QC): 4 On/Off Footwear (QC): 4 (SBA to doff/don slipper socks.) Pt. caught in sheets when OT entered room. OT explains who she is, and pt. agrees to treatment. Pt. transfers self back to side of bed, with increased time and SBA. Pt. able to bend over and doff/don slipper socks. OT asks pt. if she needs to use the bathroom, and she does not. Pt. is able to stand at walker so that she can take steps to HOB. Pt. requires min assist to stand. Pt. has difficulty problem solving how to move her walker to the right, in riddhi with her feet. She moves her walker, but gets her feet on the outside of the walker. When pt. is cued to correct this position, she impulsively sits on the bed. Pt. stands again, and attempts again. It is noted that she is able to weight shift, but is unable to demonstrate proper foot movement. Pt. sits again and begins to lay herself down. Pt. is able to transfer sit-supine with SBA. All needs are met and bed alarm is set. Education OT Patient Education: Correct positioning, Modified ADL techniques, Progress toward Goal/Update tx plan, Purpose of tx/functional activities, Reviewed precautions, Rehab process, Transfer techniques Teaching Recipient: Patient Teaching Methods: Demonstration, Discussion Response to Teaching: Reinforcement Needed OT Refrigeration Mechanic Helper Goals Refrigeration Mechanic Helper Goals Time Frame: Dec 09, 2019 Eating (QC): 6 Oral Hygiene (QC): 6 Toileting Hygiene (QC): 6 Shower/Bathe Self (QC): 4 Upper Body Dressing (QC): 6 Lower Body Dressing (QC): 6 On/Off Footwear (QC): 6 Pt. is able to move with SBA/min assist, and limited pain. Her cognition and problem solving is her barrier at this time. Additional Goals: 1-Demonstrate ADL Tasks, 2-Verbalize Understanding, 3- ImproveStrength/Mirta 1=Demonstrate adherence to instructed precautions during ADL tasks. 2=Patient will verbalize/demonstrate understanding of assistive devices/modifications for ADL. 3=Patient will improve strength/tolerance for activity to enable patient to perform ADL's. OT Education/Plan Problem List/Assessment Assessment: Decreased Activ Tolerance, Decreased Safety Aware, Dependent Tr ansfers, Impaired Cognition, Impaired Coordination, Impaired Funct Balance, Impaired I ADL's, Impaired Self-Care Skills Discharge Recommendations Plan/Recommendations: Continue POC Therapy Discharge Recommendati: Post Acute OT Comment Discharge location and equipment needs to be determined. Treatment Plan/Plan of Care Treatment,Training & Education: Yes Patient would benefit from OT for education, treatment and training to promote independence in ADL's, mobility, safety and/or upper extremity function for ADL's. Plan of Care: ADL Retraining, Cognitive Retraining, Functional Mobility, UE Funct Exercise/Act Treatment Duration: Dec 09, 2019 Frequency: 5 times per week Estimated Hrs Per Day: .25 hour per day Agreement: Yes Rehab Potential: Fair Time/GCodes Start Time: 13:05 Stop Time: 13:17 Total Time Billed (hr/min): 12 Billed Treatment Time 1, BRIDGETTE JUAREZ OT Nov 25, 2019 14:00
--- NOTE | 2019-11-25 14:22 | NUR ---
IRF Evaluation Determination: Denied Explanation: Denial associated with patient not requiring physician supervision, with [id number]-[id number] visits at least 3 days per week. CM/SS notified. Thank you for this referral.
[2019-11-25 16:13] VITALS: BP 134/64
[2019-11-25] MEDS: ENOXAPARIN 40 MG/0.4 ML (LOVENOX) SYR SC SCH (18:58)
[2019-11-25 20:18] VITALS: BP 138/61
[2019-11-26 00:31] VITALS: BP 135/67
[2019-11-26 03:43] VITALS: BP 145/68
[2019-11-26] MEDS: inSUlin ASPART (NovoLOG) 1 UNIT/0.01 ML (CHARGE PER UNIT) SC SCH ×4 (05:44→21:14)
[2019-11-26 08:00] VITALS: BP 142/73
[2019-11-26] MEDS: SENNOSIDES 8.6 MG (SENOKOT) TAB PO SCH ×2 (08:14→21:15)
[2019-11-26] MEDS: DOCUSATE SODIUM 100 MG (COLACE) CAP PO SCH ×2 (08:15→21:15)
[2019-11-26] MEDS: NICOTINE 14 MG (NICODERM) PATCH TD SCH (08:15)
--- NOTE | 2019-11-26 10:10 | Physical Therapy Daily Note ---
PT Daily Note-Current Subjective Patient is in recliner and agrees to PT. Pain Numeric Pain Scale: 10-Worst Possible Pain Location: Right Location Body Site: Pelvic Pain Description: Acute Mental Status Patient Orientation: Person, Time, Situation Transfers SCALE: Activities may be completed with or without assistive devices. 4-Kajtslmonj-iomzlaa completes the activity by him/herself with no assistance from a helper. 5-Set-up or Clean-up Assistance-helper sets up or cleans up; patient completes activity. [place] assists only prior to or following the activity. 4-Supervision or Touching Assistance-helper provides verbal cues and/or touching/steadying and/or contact guard assistance as patient completes activity. Assistance may be provided throughout the activity or intermittently. 3-Partial/Moderate Assistance-helper does LESS THAN HALF the effort. [place] lifts, holds or supports trunk or limbs, but provides less than half the effort. 2-Substantial/Maximal Assistance-helper does MORE THAN HALF the effort. [place] lifts or holds trunk or limbs and provides more than half the effort. 6-Shqtxfplv-sbmcfd does ALL the effort. Patient does none of the effort to complete the activity. Or, the assistance of 2 or more helpers is required for the patient to complete the activity. If activity was not attempted, code reason: 7-Patient Refused. 9-Not Applicable-not attempted and the patient did not perform the activity before the current illness, exacerbation or injury. 10-Not Attempted due to Environmental Limitations-(lack of equipment, weather restraints, etc.). 88-Not Attempted due to Medical Conditions or Safety Concerns. Sit to Stand (QC): 2 (x 3 sets with patient sitting abruptly due to right pelvic pain with this task.) Weight Bearing Right Lower Extremity: Right Weight Bearing/Tolerated Left Lower Extremity: Left Weight Bearing/Tolerated Gait Training Does the Patient Walk?: Yes Distance: 5' Gait Assistive Device: FWW patient performed step to forward and backward 5 ' in 23 min with continuous verbal and tactile cues. Exercises Seated Therapy Exercises: Ankle pumps, Long arc quads Seated Reps: 12 Assessment Patient repeats multiple times, "right foot then left foot?". Patient unable to weight bear or weight shift right LE to advance left LE or weight bear through bilateral UE's with FWW use to ambulate. Patient is very resistive with all mobility and exercise. From a PT standpoint, patient is currently not safe to return to home. SW notified and is attempting to place in skilled setting. PT Nursing Home Goals [employer] Goals PT [employer] Goals Time Frame: Dec 11, 2019 Roll Left & Right (QC): 5 Sit to Lying (QC): 5 Lying-Sitting on Side/Bed(QC): 5 Sit to Stand (QC): 5 Chair/Rke-hh-Yxqwa Xfer(QC): 5 Toilet Transfer (QC): 5 Car Transfer (QC): 5 Does the Patient Walk: Yes Walk 10 feet (QC): 5 Walk 50ft with 2 Turns (QC): 5 Walk 150 ft (QC): 5 Walking 10ft on Uneven Surface: 5 1 Step (curb) (QC): 5 PT Plan Treatment/Plan Treatment Plan: Continue Plan of Care Treatment Plan: Bed Mobility, Education, Functional Activity Mirta, Functional Strength, Gait, Safety, Therapeutic Exercise, Transfers Treatment Duration: Dec 11, 2019 Frequency: 6 times per week Patient and/or Family Agrees t: Yes Time/GCodes Time In: 925 Time Out: 948 Total Billed Treatment Time: 23 Total Billed Treatment 1 visit GT x 2 23min RIMMA SHEPHERD PT Nov 26, 2019 10:10
--- NOTE | 2019-11-26 10:15 | Physician Query Clarification ---
PQ-Further Specificity Admission/Discharge Admission Date: Nov 24, 2019 at 15:13 Discharge Date: The medical record reflects the following clinical scenario: Dr. Martins, History/Risk Factors: History of CVA Fall at home. Clinical Findings:Debility/weakness. Per physical therapy notes: Strength lower extremities: Right LE 3/5 grossly/Left 4/5 grossly. Treatment: PT/OT Question: Can you further specify History of stroke involving the right side per the clinical indicators above? Please document a response in the Progress Notes or Discharge Summary. 1. Right hemiparesis from previous stroke. 2. Debility from previous stroke. 3. Other, with explanation of the clinical findings. 4. Clinically undetermined, no explanation for the clinical findings. PHYSICIAN RESPONSE Can you specify per above: 2 Please remember a lack of response to the above will prompt a phone page by CDI/Coding staff. In responding to this query, please exercise your independent professional judgment. The purpose of this communication is to more accurately reflect the complexity of your patients condition. The fact that a question is asked does not imply that any particular answer is desired or expected. Thank you for your timely response to this clarification. Requestors name: Mary Chaudhry [facility] Phone # ext [phone] or [phone] THIS PHYSICIAN QUERY FORM IS A PERMANENT PART OF THE MEDICAL RECORD MARY CHAUDHRY Nov 26, 2019 10:15 GENIA MARTINS MD Nov 27, 2019 13:23
--- NOTE | 2019-11-26 10:50 | NUR ---
CM/SS: Visited with pt as to plan for discharge Plan: Undetermined at this time, possible [facility] Summary: Talk with son Narciso on the phone, however he want this worker to talk with his brother Harvey as to discharge plan. Talk with pt as to her going to [facility] as she was denied Inpatient Rehab placement. She is open to that at this time. Pt just wants to get stronger to able to go home. Telephone call to son Harvey [phone] - He is open to a referral to be made to [facility]. He would like to be able to visit pt while she is there. He will be allowed to do so. He is reminded that he will not be able to see pt if she goes to a skilled facility. Telephone Call to Brianda - [facility] Coordinator - she request information to be faxed for review. She will get back with this worker as to if they can meet her needs. This worker will follow up.
--- NOTE | 2019-11-26 11:01 | NUR ---
MAX Thayer made initial visit.
[2019-11-26 12:00] VITALS: BP 110/75
--- NOTE | 2019-11-26 12:01 | Occupational Ther Daily Note ---
OT Current Status-Daily Note Subjective Pt up in chair when OT entered room. Pt reported that she is experiencing some pain but did not rate it. She stated "It will feel better when I start moving". Mental Status/Objective Patient Orientation: Unable to Assess ADL-Treatment Therapy Code Descriptions/Definitions Functional [place] Measure: 0=Not Assessed/NA 4=Minimal Assistance 1=Total Assistance 5=Supervision or Setup 2=Maximal Assistance 6=Modified [place] 3=Moderate Assistance 7=Complete IndependenceSCALE: Activities may be completed with or without assistive devices. 4-Urgzvidznh-yvgpydq completes the activity by him/herself with no assistance from a helper. 5-Set-up or Clean-up Assistance-helper sets up or cleans up; patient completes activity. [place] assists only prior to or following the activity. 4-Supervision or Touching Assistance-helper provides verbal cues and/or touching/steadying and/or contact guard assistance as patient completes activity. Assistance may be provided throughout the activity or intermittently. 3-Partial/Moderate Assistance-helper does LESS THAN HALF the effort. [place] lifts, holds or supports trunk or limbs, but provides less than half the effort. 2-Substantial/Maximal Assistance-helper does MORE THAN HALF the effort. [place] lifts or holds trunk or limbs and provides more than half the effort. 8-Svykvmneq-fuelob does ALL the effort. Patient does none of the effort to complete the activity. Or, the assistance of 2 or more helpers is required for the patient to complete the activity. If activity was not attempted, code reason: 7-Patient Refused. 9-Not Applicable-not attempted and the patient did not perform the activity before the current illness, exacerbation or injury. 10-Not Attempted due to Environmental Limitations-(lack of equipment, weather restraints, etc.). 88-Not Attempted due to Medical Conditions or Safety Concerns. Oral Hygiene (QC): 5 Shower/Bathe Self (QC): 3 (Min A) On/Off Footwear: 3 Toilet Transfer (QC): 3 Pt. agreeable to therapy and excited at the idea of cleaning up. When asked if she needed to use BSC, pt. stated that she might when she starts moving. Pt. transferred to BS with min A to stand and max cueing for proper foot placement. After being seated on BS for 2 minutes, pt. reported that she no longer felt like she needed to use it. Pt. provided with warm washcloths and towels to bathe while on BSC. Cueing required for pt to initiate doffing gown. Pt. had difficulty problem solving how to remove slipper socks and required multiple cues and extra time to complete task. Min A to wash and dry feet requested by pt during bathing while seated as she was afraid of falling. Pt. educated on safe way to don slipper socks, however she struggled to complete task due to difficulty following simple instructions. Transfer back to reclining chair required min A to stand and max cueing for proper foot placement. It is noted that pt ambulated better with walker when sidestepping to right and when moving backwards. Pt set up with all items needed for oral hygiene and she completed the task. Call light and phone within reach when OT left the room. All needs met. Education OT Patient Education: Correct positioning, Energy conservation, Modified ADL techniques, Progress toward Goal/Update tx plan, Purpose of tx/functional activities, Reviewed precautions, Rehab process, Safety issues, Transfer techniques Teaching Recipient: Patient Teaching Methods: Demonstration, Discussion Response to Teaching: Verbalize Understanding, Return Demonstration, Reinforcement Needed OT Senior Living Goals [employer] Goals Time Frame: Dec 09, 2019 Eating (QC): 6 Oral Hygiene (QC): 6 Toileting Hygiene (QC): 6 Shower/Bathe Self (QC): 4 Upper Body Dressing (QC): 6 Lower Body Dressing (QC): 6 On/Off Footwear (QC): 6 Pt. is able to move with SBA/min assist, and limited pain. Her cognition and problem solving is her barrier at this time. Additional Goals: 1-Demonstrate ADL Tasks, 2-Verbalize Understanding, 3-Improv eStrength/[place] 1=Demonstrate adherence to instructed precautions during ADL tasks. 2=Patient will verbalize/demonstrate understanding of assistive devices/modifications for ADL. 3=Patient will improve strength/tolerance for activity to enable patient to p erform ADL's. OT Education/Plan Problem List/Assessment Assessment: Decreased Activ Tolerance, Decreased Safety Aware, Impaired I ADL's, Impaired Self-Care Skills Discharge Recommendations Plan/Recommendations: Continue POC Treatment Plan/Plan of Care Treatment,Training & Education: Yes Patient would benefit from OT for education, treatment and training to promote independence in ADL's, mobility, safety and/or upper extremity function for ADL's. Plan of Care: ADL Retraining, Cognitive Retraining, Functional Mobility, UE Funct Exercise/Act Treatment Duration: Dec 09, 2019 Frequency: 5 times per week Estimated Hrs Per Day: .25 hour per day Agreement: Yes Rehab Potential: Fair Time/GCodes Start Time: 11:15 Stop Time: 11:50 Total Time Billed (hr/min): 35 Billed Treatment Time 1, ADL 2 CORTNEY LOPEZ Nov 26, 2019 12:01
--- NOTE | 2019-11-26 13:02 | Progress Note - Hospitalist ---
Subjective HPI/CC On Admission Date Seen by Provider: Nov 26, 2019 Time Seen by Provider: 08:45 Subjective/Events-last exam She reports no new complaints or concerns. She denies any fevers or chills. She denies any shortness of breath or cough. She denies any chest pain. She denies any abdominal pain, nausea, or vomiting. She has been having bowel movements. She has been working with physical therapy. Objective Exam Vital Signs Vital Signs Date Time Temp Pulse Resp B/P (MAP) Pulse Ox O2 Delivery O2 Flow Rate FiO2 11/26/19 12:00 36.0 110 22 110/75 (87) 95 Room Air Capillary Refill : Less Than 3 SecondsLess Than 3 Seconds General Appearance: No Apparent Distress, WD/WN Respiratory: Lungs Clear, Normal Breath Sounds, No Respiratory Distress Cardiovascular: Regular Rate, Rhythm, No Edema, No Murmur Gastrointestinal: Normal Bowel Sounds, Non Tender, Soft Extremity: Normal Inspection, Non Tender, No Pedal Edema Neurologic/Psychiatric: Alert, Oriented x3, No Motor/Sensory Deficits, Normal Mood/Affect Skin: Normal Color, Warm/Dry Results/Procedures Lab Patient resulted labs reviewed. Imaging: Reviewed Imaging Report Assessment/Plan Assessment and Plan Assess & Plan/Chief Complaint Ground level fall Pelvic fracture Imaging consistent with nondisplaced pelvic fracture Orthopedic surgery consulted, appreciate assistance No surgical intervention warranted, weightbearing as tolerated Pain regimen ordered Bowel regimen ordered Continue PT/OT Planning for transfer to [place] swing bed tomorrow DVT prophylaxis: Lovenox Diagnosis/Problems Diagnosis/Problems (1) Inferior pubic ramus fracture Status: Acute Qualifiers: Encounter type: initial encounter Fracture type: closed Laterality: right Qualified Codes: S32.591A - Other specified fracture of right pubis, initial encounter for closed fracture (2) Debility Status: Acute (3) Fall from ground level Status: Acute Clinical Quality Measures DVT/VTE Risk/Contraindication: Risk Factor Score Per Nursin RFS Level Per Nursing on Admit: 4+=Very High GENIA MARTINS MD Nov 26, 2019 13:02
--- NOTE | 2019-11-26 13:09 | NUR ---
CM/SS: [facility] has accepted pt for swing bed placement and can take pt tomorrow for admission - 10am tomorrow 11/27/2019. Son Notified of the acceptance. This worker arranges for Brianda from [facility] to call Harvey, son, and give him information as to facility, visiting hours etc.
[2019-11-26] MEDS ORDERED: NICOTINE 14 MG (NICODERM) PATCH TD ONE (13:15)
[2019-11-26 13:18] LABS: BASOPHILS % (AUTO) 0 % (0-10); EOSINOPHILS % (AUTO) 0 % (0-10); HEMATOCRIT 45 % (35-52); HEMOGLOBIN 15.5 G/DL (11.5-16.0); LYMPHOCYTES # (AUTO) 2.5 X 10^3 (1.0-4.0); LYMPHOCYTES % (AUTO) 18 % (12-44); MEAN CORPUSCULAR HEMOGLOBIN 30 PG (25-34); MEAN CORPUSCULAR HGB CONC 34 G/DL (32-36); MEAN CORPUSCULAR VOLUME 86 FL (80-99); MEAN PLATELET VOLUME 9.5 FL (7.4-10.4); MONOCYTES # (AUTO) 1.2 X 10^3 (0.0-1.0); MONOCYTES % (AUTO) 9 % (0-12); NEUTROPHILS # (AUTO) 10.1 X 10^3 (1.8-7.8); NEUTROPHILS % (AUTO) 73 % (42-75); PLATELET COUNT 304 10^3/uL (130-400); WHITE BLOOD COUNT 13.9 10^3/uL (4.3-11.0)
--- NOTE | 2019-11-26 13:19 | NUR ---
CM/SS: Discharge time 9:30am - Call report to [phone] ([place]) and Fax D/C orders to [phone]
[2019-11-26 13:29] LABS: CHLORIDE 104 MMOL/L (98-107); POTASSIUM 3.7 MMOL/L (3.6-5.0); SODIUM 138 MMOL/L (135-145)
[2019-11-26 13:31] LABS: CALCIUM 9.8 MG/DL (8.5-10.1); GLUCOSE 144 MG/DL (70-105)
[2019-11-26 13:32] LABS: CARBON DIOXIDE 23 MMOL/L (21-32)
[2019-11-26 13:35] LABS: CREATININE SERUM 0.72 MG/DL (0.60-1.30); GFR ESTIMATED > 60
[2019-11-26 13:36] LABS: BUN/CREATININE RATIO 19
[2019-11-26 16:07] VITALS: BP 118/78
[2019-11-26] MEDS: ENOXAPARIN 40 MG/0.4 ML (LOVENOX) SYR SC SCH (17:54)
[2019-11-26 18:12] LABS: ALBUMIN 4.3 GM/DL (3.2-4.5)
[2019-11-26 18:15] LABS: TOTAL PROTEIN 8.2 GM/DL (6.4-8.2)
[2019-11-26 18:17] LABS: BILIRUBIN,TOTAL 0.5 MG/DL (0.1-1.0)
[2019-11-26 18:20] LABS: BILIRUBIN,DIRECT 0.2 MG/DL (0.0-0.3); BILIRUBIN,INDIRECT 0.3 MG/DL
[2019-11-26 20:00] VITALS: BP 122/76
[2019-11-27 00:05] VITALS: BP 137/69
[2019-11-27 04:30] VITALS: BP 143/81
[2019-11-27] MEDS: inSUlin ASPART (NovoLOG) 1 UNIT/0.01 ML (CHARGE PER UNIT) SC SCH (05:46)
[2019-11-27 07:30] VITALS: BP 122/72
[2019-11-27] MEDS: SENNOSIDES 8.6 MG (SENOKOT) TAB PO SCH (08:53)
[2019-11-27] MEDS: DOCUSATE SODIUM 100 MG (COLACE) CAP PO SCH (08:53)
[2019-11-27] MEDS: NICOTINE 14 MG (NICODERM) PATCH TD SCH (08:53)
[2019-11-27] MEDS ORDERED: NICOTINE 14 MG (NICODERM) PATCH TD SCH (09:00)
[2019-11-27] MEDS ORDERED: PATCH REMOVAL TP SCH (09:00)
--- NOTE | 2019-11-27 09:31 | NUR ---
SB[place] [facility] [place]ST[place]SW[place] AND CALL BACK INFORMATION PROVIDED.
--- NOTE | 2019-11-27 12:07 | Discharge Summary ---
Discharge Summary Hospital Course Was the Problem List Reviewed?: Yes Problems/Dx: (1) Inferior pubic ramus fracture Status: Acute Qualifiers: Qualified Codes: S32.591A - Other specified fracture of right pubis, initial encounter for closed fracture (2) Debility Status: Acute (3) Fall from ground level Status: Acute (4) Tobacco abuse Status: Chronic Hospital Course Date of Admission: Nov 24, 2019 at 15:13 Admission Diagnosis : Pelvic fracture Family Physician/Provider: No,Local Physician Date of Discharge: 11/27/19 Discharge Diagnosis: Pelvic fracture Hospital Course: Dasia Lagunas is a 73-year-old female who was admitted after a ground-level fall with a pelvic fracture. The fracture is nondisplaced and no surgical intervention was warranted. Her pain is well-controlled. She was evaluated by physical and occupational therapy. It was thought that she would benefit from ongoing therapies, so she was discharged to [facility] for continuing care. She was advised to quit smoking for both her overall health and her bone health. She should the likely undergo a DEXA scan and will possibly benefit from bisphosphonate therapy. She should follow-up with her primary care physician. Labs and Pending Lab Test: Laboratory Tests 11/26/19 13:10: White Blood Count 13.9H, Red Blood Count 5.25, Hemoglobin 15.5, Hematocrit 45, Mean Corpuscular Volume 86, Mean Corpuscular Hemoglobin 30, Mean Corpuscular Hemoglobin Concent 34, Red Cell Distribution Width 14.0, Platelet Count 304, Mean Platelet Volume 9.5, Neutrophils (%) (Auto) 73, Lymphocytes (%) (Auto) 18, Monocytes (%) (Auto) 9, Eosinophils (%) (Auto) 0, Basophils (%) (Auto) 0, Neutrophils # (Auto) 10.1H, Lymphocytes # (Auto) 2.5, Monocytes # (Auto) 1.2H, Eosinophils # (Auto) 0.0, Basophils # (Auto) 0.0, Sodium Level 138, Potassium Level 3.7, Chloride Level 104, Carbon Dioxide Level 23, Anion Gap 11, Blood Urea Nitrogen 14, Creatinine 0.72, Estimat Glomerular Filtration Rate > 60, BUN/Creatinine Ratio 19, Glucose Level 144H, Calcium Level 9.8, Total Bilirubin 0.5, Direct Bilirubin 0.2, Indirect Bilirubin 0.3, Aspartate Amino Transf (AST/SGOT) 39H, Alanine Aminotransferase (ALT/SGPT) 22, Alkaline Phosphatase 100, Total Protein 8.2, Albumin 4.3 11/26/19 15:34: Glucometer 92 11/26/19 20:43: Glucometer 115H 11/27/19 05:38: Glucometer 115H Home Meds Active No Active Prescriptions or Reported Medications Assessment/Pt Instructions Take medications as prescribed. Participate in therapies. Follow-up with your primary care physician. Discharge Planning: <30 minutes discharge planning Discharge Instructions Discharge Diet: No Restrictions Activity as Tolerated: Yes Discharge Physical Examination Vital Signs Vital Signs Date Time Temp Pulse Resp B/P (MAP) Pulse Ox O2 Delivery O2 Flow Rate FiO2 11/27/19 10:00 11/27/19 08:00 94 Room Air 11/27/19 07:30 36.5 102 20 11/27/19 04:30 2.00 General Appearance: No Apparent Distress, WD/WN HEENT: PERRL/EOMI, Pharynx Normal Respiratory: Lungs Clear, Normal Breath Sounds, No Respiratory Distress Cardiovascular: Regular Rate, Rhythm, No Edema, No Murmur Gastrointestinal: Normal Bowel Sounds, Non Tender, Soft Extremity: Normal Inspection, Non Tender, No Pedal Edema Skin: Normal Color, Warm/Dry Neurologic/Psychiatric: Alert, Oriented x3, Normal Mood/Affect, Motor Weakness Allergies: Coded Allergies: Penicillins (Verified Allergy, Unknown, 11/24/19) PATIENT STATES NKDA SON THINKS SHE MAY BE ALLERGIC TO PENICILLINS. Discharge Summary Date of Admission Nov 24, 2019 at 15:13 Date of Discharge Nov 27, 2019 at 10:00 Discharge Date: Nov 27, 2019 Discharge Time: 10:00 Admission Diagnosis Pelvic fracture Discharge Diagnosis Ground level fall Pelvic fracture (1) Inferior pubic ramus fracture Status: Acute Qualifiers: Qualified Codes: S32.591A - Other specified fracture of right pubis, initial encounter for closed fracture (2) Debility Status: Acute (3) Fall from ground level Status: Acute (4) Tobacco abuse Status: Chronic Clinical Quality Measures DVT/VTE Risk/Contraindication: Risk Factor Score Per Nursin RFS Level Per Nursing on Admit: 4+=Very High GENIA MARTINS MD Nov 27, 2019 12:07
== END 2019-11-27 10:00 | disposition swing bed (61) | DRG 536 ==
LOC: ER 12:36 → 4TH 15:13
PROVIDERS: ADMIT Internal Medicine; ATTEND Internal Medicine
DX: S32.591A Other specified fracture of right pubis, initial encounter for closed fracture (principal); M16.0 Bilateral primary osteoarthritis of hip; E78.00 Pure hypercholesterolemia, unspecified; F17.200 Nicotine dependence, unspecified, uncomplicated; R53.81 Other malaise; W18.30XA Fall on same level, unspecified, initial encounter; Y92.032 Bedroom in apartment as the place of occurrence of the external cause
CPT/HCPCS: 36415; 70450; 71045; 72125; 72192; 80048; 80076; 81000; 82962; 85007; 85025; 85027

== ENCOUNTER 2019-12-08 22:32 | Emergency (ER) | payer MEDICARE ==
[~2019-12-08] VITALS: Ht 162 cm; Wt 55.0 kg
[2019-12-08] MEDS ORDERED: MIRT15TA6 (22:39)
[2019-12-08] MEDS ORDERED: PRAV40TA2 (22:39)
[2019-12-08] MEDS ORDERED: TRAM50TA3 (22:39)
[2019-12-08] MEDS ORDERED: PREG200C28 (22:39)
[2019-12-08] MEDS ORDERED: ASPI-983 (22:39)
[2019-12-08] MEDS ORDERED: OXYC-471 (22:39)
--- OUTSIDE RECORDS SUMMARY | 2019-12-08 22:42 | XMS REPORT | Continuity of Care Document ---
Demographics Preferred Language Unknown Marital Status Unknown Restorationism Affiliation Unknown Race Unknown Ethnic Group Unknown Author Organization Unknown Address Unknown Phone Unavailable Allergies Active Description Code Type Severity Reaction Onset Reported/Identified Relationship to Patient Clinical Status Yes PENICILLINS (CLASS) [id number] CLAS S N/A N/A Yes PENICILLIN G POTASSIUM UNKNOWN UNKNOWN Yes Penicillins [id number] Drug Aller gy Unknown N/A 11/24/2019 Medications Medication Packaging Start Date St op Date Route Dosage Sig ALPRAZOLAM TAB 0.25 MG (XANAX) MG 11/26/2019 12/06/2019 PRN Q6H MILK OF MAGNESIA LIQ ml 11/27/2019 12/26/2019 PRN Daily Docusate sodium 100mg oral capsule (COLACE ) MG 11/27/2019 12/27/2019 PRN BID ACETAMINOPHEN ORAL TABLET 325mg(Tylenol) MG 11/27/2019 12/27/2019 PRN EVERY 6 Hour BISACODYL TAB 5 MG (DULCOLAX) MG 11/27/2019 12/04/2019 PRN Daily ACETAMINOPHEN SUPPOS SUP 650 MG (TYLENOL) MG 11/27/2019 12/04/2019 PRN Q4H ONDANSETRON VIAL INJ 4 MG/2CC (ZOFRAN 2CC VIAL) MG 11/27/2019 12/04/2019 PRN Q6H POLYETHYLENE GLYCOL POWDER U D PWD (MIRALAX 17GM UNIT DOSE PAKS) gm 11/27/2019 12/04/2019 PRN Daily CALCIUM CARBONATE TAB 500 MG (TUMS) MG 11/27/2019 12/04/2019 PRN Q6H DIPHENHYDRAMINE CAP 25 MG (BENADRYL) MG 11/27/2019 12/04/2019 PRN Q6H BISACODYL SUPPOS 10 MG (DULCOLAX SUPPOS) MG 11/27/2019 12/04/2019 PRN Daily HYDROCODONE/APAP 5MG/325MG T AB 5 MG/325MG (ALMA-TAB 5/325) TAB 11/27/2019 12/07/2019 PRN Q6H ALUM/MAG/SIMETH 30CC LIQ (MYLANTA PLUS) cc 11/27/2019 12/07/2019 PRN Q4H LACTULOSE SYRUP LIQ 20 GM/30 CC (CHRONULAC SYRUP) GM 11/27/2019 12/27/2019 PRN BID GUAIFENESIN - DM LIQ (ROBITUSSIN DM) MLS 11/27/2019 12/04/2019 PRN Q4H PREGABALIN CAP 200 MG (LYRICA) MG 11/27/2019 12/27/2019 TID&0800,1400,2000 OXYCODONE 5MG/APAP 325MG TAB(PERCOCET-5) TAB 11/27/2019 12/27/2019 PRN Q4H CLONIDINE TAB 0.1 MG (CATAPRES) MG 11/27/2019 12/11/2019 PRN Q6H ENOXAPARIN SYRINGE INJ 40 MG (LOVENOX SYRI NGE) MG 11/27/2019 12/16/2019 Daily&2000 SIMVASTATIN TAB 40 MG (ZOCOR) MG 11/27/2019 12/26/2019 QPM&2000 MIRTAZAPINE TAB 15 MG (REMERON) MG 11/27/2019 12/26/2019 QHS&2100 MELATONIN TAB 3 MG (MELATONIN) MG 11/27/2019 12/27/2019 PRN QHS ASPIRIN ENTERIC COATED TAB 8 1 MG (BABY ASPIRIN EC) MG 11/28/2019 12/27/2019 QAM&0800 CYANOCOBALAMIN TAB 1000 MCG (VIT B 12) MCG 11/28/2019 12/27/2019 Daily&0900 NICOTINE PATCH PAT 14 MG (NICODERM) MG 11/28/2019 12/27/2019 Daily&0900 Lidocaine adhesive patch 5% (Lidoderm) APPLICATION 12/01/2019 12/10/2019 QAM&0800,1140 Problems Date Dx Coded Attending Type Code Diagnosis Diagnosed By 11/27/2019 GENIA MARTINS MD Ot E78. 00 PURE HYPERCHOLESTEROLEMIA, UNSPECIFIED 11/27/2019 GENIA MARTINS MD Ot F17.200 NICOTINE DEPENDENCE, UNSPECIFIED, UNCOMP 11/27/2019 GENIA MARTINS MD Ot M16. 0 BILATERAL PRIMARY OSTEOARTHRITIS OF HIP 11/27/2019 GENIA MARTINS MD Ot R53. 81 OTHER MALAISE 11/27/2019 GENIA MARTINS MD Ot S32.591A OTH FRACTURE OF RIGHT PUBIS, INIT ENCNTR 11/27/2019 LAKSHMI KELLEY, GENIA Rdz Ot W18.30XA FALL ON SAME LEVEL, UNSPECIFIED, INITIAL 11/27/2019 GENIA MARTINS MD Ot Y92.[address] Procedures There is no data. Results Test [...] urinalysis with reflex to culture NO NRG Capillary blood glucose measurement by g lucometer (mass/volume) - 11/24/19 20:23 Capillary blood glucose measurement by glucometer (mas s/volume) 139 mg/dL 70-110 Capillary blood glucose measurement by g lucometer (mass/volume) - 11/25/19 05:50 Capillary blood glucose measurement by glucometer (mas s/volume) 110 mg/dL 70-110 Capillary blood glucose measurement by g lucometer (mass/volume) - 11/25/19 10:56 Capillary blood glucose measurement by glucometer (mas s/volume) 98 mg/dL 70-110 Capillary blood glucose measurement by g lucometer (mass/volume) - 11/25/19 16:12 Capillary blood glucose measurement by glucometer (mas s/volume) 113 mg/dL 70-110 Capillary blood glucose measurement by g lucometer (mass/volume) - 11/25/19 20:53 Capillary blood glucose measurement by glucometer (mas s/volume) 130 mg/dL 70-110 Capillary blood glucose measurement by g lucometer (mass/volume) - 11/26/19 05:33 Capillary blood glucose measurement by glucometer (mas s/volume) 116 mg/dL 70-110 Capillary blood glucose measurement by g lucometer (mass/volume) - 11/26/19 11:02 Capillary blood glucose measurement by glucometer (mas s/volume) 206 mg/dL 70-110 Complete blood count (CBC) with automate d white blood cell (WBC) differential - 11/26/19 13:10 Blood leukocytes automated count (number/volume) 13.9 10*3/uL 4.3-11.0 Blood erythrocytes automated count (number/volume) 5.25 10*6/uL 4.35-5.85 Venous blood hemoglobin measurement (mass/volume) 15.5 g/dL 11.5-16.0 Blood hematocrit (volume fraction) 45 % 35-52 Automated erythrocyte mean corpuscular volume 86 [ foz_us] 80-99 Automated erythrocyte mean corpuscular h emoglobin (mass per erythrocyte) 30 pg 25-34 Automated erythrocyte mean corpuscular h emoglobin concentration measurement (mass/volume) 34 g/dL 32-36 Automated erythrocyte distribution width ratio 14. 0 % 10.0- 14.5 Automated blood platelet count (count/volume) 304 10*3/uL 130-400 Automated blood platelet mean volume measurement 9.5 [foz_us] 7.4-10.4 Automated blood neutrophils/100 leukocytes 73 % 42-75 Automated blood lymphocytes/100 leukocytes 18 % 12-44 Blood monocytes/100 leukocytes 9 % 0-12 Automated blood eosinophils/100 leukocytes 0 % 0-10 Automated blood basophils/100 leukocytes 0 % 0-10 Blood neutrophils automated count (number/volume) 10.1 10*3 1.8-7.8 Blood lymphocytes automated count (number/volume) 2.5 10*3 1.0-4.0 Blood monocytes automated count (number/volume) 1. 2 10*3 0.0-1.0 Automated eosinophil count 0.0 10*3/uL 0 .0-0.3 Automated blood basophil count (count/volume) 0.0 10*3/uL 0.0-0.1 Whole blood basic metabolic panel - 11/03 08/22 13:10 Serum or plasma sodium measurement (moles/volume) 138 mmol/L 135-145 Serum or plasma potassium measurement (moles/volume) 3.7 mmol/L 3.6-5.0 Serum or plasma chloride measurement (moles/volume) 104 mmol/L 98-107 Carbon dioxide 23 mmol/L 21-32 Serum or plasma anion gap determination (moles/volume) 11 mmol/L 5-14 Serum or plasma urea nitrogen measurement (mass/volume ) 14 mg/dL 7-18 Serum or plasma creatinine measurement (mass/volume) 0.72 mg/dL 0.60-1.30 Serum or plasma urea nitrogen/creatinine mass ratio 19 NRG Serum or plasma creatinine measurement w ith calculation of estimated glomerular filtration rate > NRG Serum or plasma glucose measurement (mass/volume) 144 mg/dL 70-105 Serum or plasma calcium measurement (mass/volume) 9.8 mg/dL 8.5-10.1 Liver function panel (serum or plasma al k phos, alb, total and direct bili, total protein, ALT, AST) - 11/26/19 13:10 Serum or plasma total bilirubin measurement (mass/volu me) 0.5 mg/dL 0.1-1.0 Serum or plasma alkaline phosphatase bakari surement (enzymatic activity/volume) 100 U/L 40-136 Serum or plasma aspartate aminotransfera se measurement (enzymatic activity/volume) 39 U/L 5-34 Serum or plasma alanine aminotransferase measurement (enzymatic activity/volume) 22 U/L 0-55 Serum or plasma protein measurement (mass/volume) 8.2 g/dL 6.4-8.2 Serum or plasma albumin measurement (mass/volume) 4.3 g/dL 3.2-4.5 Bilirubin direct 0.2 mg/dL 0.0-0.3 Serum or plasma indirect bilirubin measurement (mass/v olume) 0.3 mg/dL NRG Capillary blood glucose measurement by g lucometer (mass/volume) - 11/26/19 15:34 Capillary blood glucose measurement by glucometer (mas s/volume) 92 mg/dL 70-110 Capillary blood glucose measurement by g lucometer (mass/volume) - 11/26/19 20:43 Capillary blood glucose measurement by glucometer (mas s/volume) 115 mg/dL 70-110 Capillary blood glucose measurement by g lucometer (mass/volume) - 11/27/19 05:38 Capillary blood glucose measurement by glucometer (mas s/volume) 115 mg/dL 70-110 Comprehensive Metabolic Panel - 11/28/19 04:58 Albumin 3.6 g/dL 3.6-5.1 ALP 88 U/L 35-130 ALT 22 U/L 6-45 Anion Gap 15 6-14 AST 21 U/L 2-40 BUN 12 mg/dL 5-25 Calcium 8.4 mg/dL 8.3-10.4 Chloride 106 mmol/L 95-114 CO2 23 mEq/L 22-33 Creat 0.66 mg/dL 0.50-1.50 eGFR 87 mL/min/1.73m2 >59 Globulin 3.1 g/dL 2.3-3.5 Glucose 87 mg/dL 70-110 Osmo 288 280-295 Potassium 4.0 mmol/L 3.5-5.3 Sodium 140 mmol/L 134-148 TBil 0.7 mg/dL 0.2-1.2 TP 6.7 g/dL 6.0-8.3 Encounters ACCT No. Visit Date/Time Discharge Status Pt. Type Provider Facility Loc./Unit Complaint [id number] 08/03/2018 15:04:00 Document Registration [id number] 11/27/2019 10:00:00 12/03/2019 13:10 :00 DIS Inpatient Shweta Dueñas [place] [facility] [id number] 11/26/2019 13:35:32 Document Registration [id number] 11/24/2019 15:13:00 020 10:00:00 DIS Outpatient LAKSHMI KELLEY, GENIA Rdz [facility] [address] R HIP PAIN;FALL [id number] 11/03/2018 15:24:22 11/03/2018 23:59: 59 CLS Outpatient CeciledustinYoni allen [id number] 05/07/2018 13:50:21 05/07/2018 23:59: 59 CLS Outpatient CeciledahliaYoni [id number] 01/29/2018 15:17:13 01/29/2018 23:59: 59 CLS Outpatient CecileYoni villagomez [id number] 09/30/2017 15:16:57 09/30/2017 23:59: 59 CLS Outpatient Yoni Buckner [id number] 06/25/2017 11:11:30 06/25/2017 23:59: 59 CLS Outpatient Brayan Almazan [id number] 06/24/2017 15:20:20 06/24/2017 23:59: 59 CLS Outpatient CecileYoni villagomez [id number] 06/11/2017 10:49:54 06/11/2017 23:59: 59 CLS Outpatient IndioBrayan [id number] 06/04/2017 12:03:35 06/04/2017 23:59: 59 CLS Outpatient Brayan Almazan [id number] 06/02/2017 15:45:09 06/02/2017 23:59: 59 CLS Outpatient IndioBrayan [id number] 04/29/2017 10:45:40 04/29/2017 23:59: 59 CLS Outpatient IndioBrayan [id number] 04/21/2017 10:31:51 04/21/2017 23:59: 59 CLS Outpatient IndioBrayan [id number] 04/21/2017 09:55:43 04/21/2017 23:59: 59 CLS Outpatient CecileYoni villagomez [id number] 04/08/2017 10:30:51 04/08/2017 23:59: 59 CLS Outpatient Yoni Buckner [id number] 03/06/2017 14:09:14 03/06/2017 23:59: 59 CLS Outpatient HetlingerYoni [id number] 10/10/2016 14:09:49 10/10/2016 23:59: 59 CLS Outpatient HetlingerYoni [id number] 07/04/2016 14:12:37 07/04/2016 23:59: 59 CLS Outpatient HetlingerYoni [id number] 02/27/2016 10:32:28 02/27/2016 23:59: 59 CLS Outpatient HetlingerYoni [id number] 10/30/2015 10:35:26 10/30/2015 23:59: 59 CLS Outpatient HetlingerYoni [id number] 06/26/2015 14:55:44 06/26/2015 23:59: 59 CLS Outpatient HetlingerYoni [id number] 03/24/2015 10:47:15 03/24/2015 23:59: 59 CLS Outpatient HetlingerYoni [id number] 12/12/2014 21:34:54 12/12/2014 23:59: 59 CLS Outpatient HetlingerYoni [id number] 03/30/2014 10:39:48 03/30/2014 23:59: 59 CLS Outpatient HetlingerYoni [id number] 02/24/2014 12:19:13 02/24/2014 23:59: 59 CLS Outpatient Hetlinger Yoni [id number] 10/21/2013 09:59:23 10/21/2013 23:59: 59 CLS Outpatient HetlingerYoni [id number] 09/30/2013 11:25:55 09/30/2013 23:59: 59 RACHEL Outpatient HetlingerYoni
--- NOTE | 2019-12-08 23:09 | ED Hip Pain/Injury ---
General Chief Complaint: Hip/Pelvic Problems Stated Complaint: FALL,R HIP PAIN Nursing Triage Note: brought in by [facility] s/p fall from standing position. c/o right hip pain. pt with previous fall 11/27/2019 with right hip fx, no intervention. (MIHIR DODD) History of Present Illness Date Seen by Provider: Dec 08, 2019 Time Seen by Provider: 22:25 Initial Comments This is a 73 y/o F who presents to the ED via EMS s/p fall from ground level this PM. Pt reports she was getting ready for bed and on her way to the bathroom she "twisted too fast and lost balance" causing her to fall on her R side. She c/o R hip pain with weight bearing and palpation but not at rest. Denies hitting anything on her way down, denies heating her head, LOC, neck pain, back pain, numbness/paresthesias, or any other sx. Pt takes a daily ASA but denies any oth er blood thinners. Pt lives in an assisted living facility and reports she was not on the ground for long before help arrived to get her off the floor. Pt has hx of a recent hx (11/24/2019) of a Nondisplaced right inferior pubic ramus fracture for which she has been receiving Physical therapy. Pt normally ambulates using a walker. No further complaints at this time. Timing/Duration: just prior to arrival Severity: mild Location: hip (R) Method of Injury: fell (from ground level) Modifying Factors: Improves With Immobilization Associated Symptoms: No fatigue, No fever, No groin pain; trouble walking (MIHIR DODD) Allergies and Home Medications Allergies Coded Allergies: Penicillins (Verified Allergy, Unknown, 11/24/19) PATIENT STATES NKDA SON THINKS SHE MAY BE ALLERGIC TO PENICILLINS. Patient Home Medication List Home Medication List Reviewed: Yes (GERMAN RECIO MD) Review of Systems Constitutional: no symptoms reported Respiratory: no symptoms reported Cardiovascular: no symptoms reported Musculoskeletal: No back pain, No neck pain; other (R hip pain) Skin: no symptoms reported Psychiatric/Neurological: Denies Headache, Denies Numbness, Denies Paresthesia, Denies Weakness (MIHIR DODD) Constitutional: No chills, No fever Respiratory: No cough, No short of breath Cardiovascular: No chest pain, No edema Musculoskeletal: No back pain; other (R hip pain) (GERMAN RECIO MD) Past Paatuus-Mprsxi-Fzxlml Hx Past Med/Social Hx: Reviewed Nursing Past Med/Soc Hx (GERMAN RECIO MD) Patient Social History Alcohol Use: Denies Use Recreational Drug Use: No Smoking Status: Never a Smoker 2nd Hand Smoke Exposure: No Recent Foreign Travel: No Contact w/Someone Who Travel: No Recent Infectious Disease Expo: No Recent Hopitalizations: No Physical Abuse: No Sexual Abuse: No Mistreated: No Fear: No (BERTO DODDLACIE [facility]vey[facility]) Seasonal Allergies Seasonal Allergies: No ([facility]LY [facility]) Past Medical History Surgeries: No Respiratory: No Cardiac: Yes High Cholesterol Neurological: Yes Stroke : 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 oz. kg; 20.00 BMI Method: General Appearance: No Apparent Distress, WD/WN HEENT: PERRL/EOMI, TMs Normal, Normal ENT Inspection Neck: Full Range of Motion, Normal Inspection, Non Tender, Supple, Other (no midline tenderness) Cardiovascular: Regular Rate, Rhythm, No Edema, No Gallop, No JVD, No Murmur, Normal Peripheral Pulses Respiratory: Chest Non Tender, Lungs Clear, Normal Breath Sounds Gastrointestinal: Normal Bowel Sounds, Non Tender, Soft Back: Normal Inspection, No CVA Tenderness, No Vertebral Tenderness (no midline tenderness ) Extremity: Normal Capillary Refill, Normal Inspection; No Normal Range of Motion (RLE passive and active ROM limited by pain), No Non Tender (R proximal LE TTP, LLE is non tender); No Calf Tenderness, No Pedal Edema, Other (Medial malleoli are at the same level; no abnormal ER or IR of R hip; no pain with log rolling test; pt is able to lift both legs but RLE is painful w/ flexion of of hip) Neurologic/Psychiatric: Alert, Oriented x3, No Motor/Sensory Deficits, Normal Mood/Affect; No Motor Weakness, No Sensory Deficit (MIHIR DODD [facility]) General Appearance: No Apparent Distress, WD/WN Cardiovascular: Regular Rate, Rhythm, No Murmur Respiratory: Lungs Clear, Normal Breath Sounds Back: Normal Inspection, No CVA Tenderness, No Vertebral Tenderness (no midline tenderness ) Extremity: No Pedal Edema, Other (Medial malleoli are at the same level; no abnormal ER or IR of R hip; no pain with log rolling test; pt is able to lift both legs but RLE is painful w/ flexion of of hip) Skin: Normal Color, Warm/Dry (GERMAN RECIO MD) Progress/Results/Core Measures Results/Orders My Orders Orders - GERMAN RECIO MD Ct Pelvis Wo (12/08/19 22:57) Acetaminophen Tablet/Caplet (Tylenol T (12/08/19 23:39) (GERMAN RECIO MD) Vital Signs/I&O 12/08/19 22:32 Temp 36.4 Pulse 80 Resp 18 B/P (MAP) 129/68 (88) Pulse Ox 94 O2 Delivery Room Air (GERMAN RECIO MD) Blood Pressure Mean: 88 Progress Progress Note : Time: 22:28 Progress Note Seen and evaluated. Fall from ground level. Pt did not hit her head or LOC. Pt denies pain at rest. Has a recent hx of Nondisplaced right inferior pubic ramus fracture; we repeated the CT pelvis w/o contrast. Will continue to monitor pt. (MIHIR DODD [facility]) Progress Note : Progress Note I have seen and evaluated the patient and agree with above except as indicated. I have directed the plan of care. Patient is here with right pelvic pain. Does have previous history of inferior pubic rami fracture diagnosed by CT scan. She is afraid she may have aggravated that. No rotation or shortening noted. No respiratory symptoms noted or reported. We will repeat CT pelvis without contrast due to the difficulty finding fracture previously and evaluate for changes. Monitor patient. 2345: Tylenol 650 mg by mouth ordered. CT does not show significant changes. She feels that she can go back to assisted living and would like to try that. She does have a walker at home. We will try to make arrangements. Discharged home with return precautions. Patient verbalize understanding instructions and agreement with plan. (GERMAN RECIO MD) Diagnostic Imaging Diagonstic Imaging: CT Plain Films/CT/US/NM/MRI: pelvis Comments Nondisplaced and non-heated right inferior pubic ramus fracture, unchanged. No acute findings in the pelvis. (GERMAN RECIO MD) Departure Impression Primary Impression: Inferior pubic ramus fracture Qualified Codes: S32.591D - Other specified fracture of right pubis, subsequent encounter for fracture with routine healing Disposition: HOME, SELF-CARE Condition: Stable Departure-Patient Inst. Decision time for Depature: 23:47 (GERMAN RECIO MD) Referrals: NO,LOCAL PHYSICIAN (PCP/Family) Primary Care Physician Patient Instructions: Pelvic Fracture (DC) Add. Discharge Instructions: All discharge instructions reviewed with patient and/or family. Voiced understanding. Continue home medications as previously prescribed. Use your walker when moving about. You will have increased soreness over the next few days. You may use ice packs over the area of pain on the right hip to decrease swelling and pain 20 minutes per hour as needed. Follow-up with your doctor for recheck and further evaluation. Return for worse pain, weakness, inability to walk, breathing problems or other concerns as needed. MIHIR DODD [facility] Dec 08, 2019 23:09 GERMAN RECIO MD Dec 08, 2019 23:50
[2019-12-08] MEDS ORDERED: ACETAMINOPHEN 325 MG TABLET PO STA (23:39)
[2019-12-09 00:19] VITALS: BP 126/69
--- NOTE | 2019-12-09 09:39 | Diagnostic Imaging Report ---
PROCEDURE: CT pelvis without contrast. TECHNIQUE: Multiple contiguous axial images were obtained through the pelvis without the use of intravenous contrast. Sagittal and coronal reformations were performed. Auto Exposure Controls were utilized during the CT exam to meet ALARA standards for radiation dose reduction. INDICATION: Fall. Pain. COMPARISON: 11/24/2019 FINDINGS: There is no new acute fracture or dislocation of the pelvis. Nonacute nondisplaced fracture of the right inferior pubic ramus is identified. This is stable when compared to 11/24/2019. No other new acute fracture of the pelvis is seen. SI joints are symmetric. Pubic symphysis is within normal limits. Bilateral femoral acetabular joint spaces are also maintained. Included portions of proximal femurs are intact. Soft tissue structures show no additional acute abnormalities. Urinary bladder is unopacified. No calculi are seen within the urinary bladder. IMPRESSION: 1. Stable nonacute nondisplaced fracture of the right inferior pubic ramus. 2. No new acute fracture or dislocation of the pelvis or either hip. Dictated by: Dictated on workstation # [id number]
== END 2019-12-09 00:19 | disposition home or self-care (01) ==
LOC: EDUNIT# 22:32 → ER 22:33
DX: S32.591A Other specified fracture of right pubis, initial encounter for closed fracture (principal); Z79.82 Long term (current) use of aspirin; Z88.0 Allergy status to penicillin; Z86.73 Personal history of transient ischemic attack (TIA), and cerebral infarction without residual deficits; W01.0XXA Fall on same level from slipping, tripping and stumbling without subsequent striking against object, initial encounter
CPT/HCPCS: 72192

== ENCOUNTER → 2020-06-26 | Outpatient (CLI) | payer MEDICARE ==
[~2020-06-26] MED LIST: ASPI-1238; MIRT15TA6; OXYC1TAB11; PRAV40TA2; PREG200C28; TRAM50TA3
--- NOTE | 2020-06-26 18:24 | Diagnostic Imaging Report ---
INDICATION: Right hip pain. COMPARISON: 11/24/2019. FINDINGS: Two views of right hip demonstrate a subacute to chronic fracture of the right inferior pubic ramus. Mild osteoarthritis in the right hip. No acetabular retroversion. No features of osteonecrosis to femoral head. Vascular calcifications are noted. Mild osteoarthritis in the right SI joint. IMPRESSION: 1. Subacute to chronic fracture of the right inferior pubic ramus. 2. Mild osteoarthritis of the right hip. Dictated by: Dictated on workstation # [id number]
== END ==
LOC: RAD 12:30
DX: S32.591A Other specified fracture of right pubis, initial encounter for closed fracture (principal); M16.11 Unilateral primary osteoarthritis, right hip
CPT/HCPCS: 73502